=== PATIENT | female | born 1970 | race Caucasian/White ===

== ENCOUNTER 2019-03-24 09:29 | Outpatient (CLI) | payer OTHER, SELFPAY ==
--- NOTE | ~2019-03-24 | XR_ITS ---
EXAMINATION: XR knee LT 2V DATE: 03/24/2019 10:58 INDICATION: Left knee pain. TECHNIQUE: 2 views of left knee were obtained. COMPARISON: Left knee radiographs 05/28/2017 FINDINGS: Bone alignment is normal. No fracture. There is mild tricompartmental osteoarthritis. No kn ee joint effusion. IMPRESSION: 1. Mild left knee osteoarthritis. Reviewed, dictated and finalized at location A. LED YARN WORKER
--- NOTE | ~2019-03-24 | MR_ITS ---
EXAMINATION: MR lumbar spine wo con DATE: 03/24/2019 10:47 INDICATION: Low back pain. TECHNIQUE: Magnetic resonance imaging (MRI) of the lumbar spine was performed without intravenous con trast. Sequences included sagittal T2-weighted FSE, sagittal T2-weighted FS FSE, sagittal T1-weighted FSE, and axial T2-weighted FSE. COMPARISON: Lumbar spine radiographs 03/24/2019 FINDINGS: There is 6 degrees dextrocurvature of thoracolumbar spine. Vertebral body heights and inter vertebral disc heights are normal. The distal spinal cord signal intensity is normal. The conus medul oleksandr is at T12-L1. The following disc levels are specifically discussed: L1-L2: The disc does not extend beyond the endplate margin. There is moderate bilateral facet joint o steoarthritis. There is no neural foraminal stenosis. There is no central canal stenosis. L2-L3: The disc is mildly bulging. There is mild right and moderate left facet joint osteoarthritis. There is mild bilateral neural foraminal stenosis. There is mild central canal stenosis. L3-L4: The disc is mildly bulging. There is moderate right and severe left facet joint osteoarthritis . There is mild left neural foraminal stenosis. There is no central canal stenosis. L4-L5: The disc is mildly bulging. There is moderate right and severe left facet joint osteoarthritis . There is mild bilateral neural foraminal stenosis. There is no central canal stenosis. L5-S1: The disc does not extend beyond the endplate margin. There is severe bilateral facet joint ost eoarthritis. There is mild right and moderate left neural foraminal stenosis. There is no central can al stenosis. IMPRESSION: 1. Mild lumbar spondylosis. Reviewed, dictated and finalized at location A. INAL INTELLIGENCE SPECIALIST IMPRESSION: 1. Mild lumbar spondylosis.
--- NOTE | ~2019-03-24 | XR_ITS ---
EXAMINATION: XR knee RT 2V DATE: 03/24/2019 10:58 INDICATION: Right knee pain. TECHNIQUE: 2 views of right knee were obtained. COMPARISON: None. FINDINGS: Bone alignment is normal. No fracture. There is mild tricompartmental osteoarthritis. No kn ee joint effusion. IMPRESSION: 1. Mild right knee osteoarthritis. Reviewed, dictated and finalized at location A. HEAD PUMPER
--- NOTE | ~2019-03-24 | XR_ITS ---
XR lumbar spine 6V w bending 03/24/2019 10:58 Indication: Low back pain Procedure: 7 views lumbar spine Comparison: 05/28/2017 Findings: Mild wedge-shaped appearance to L1 which appears chronic. Mild disc narrowing at L4-5 and L 5-S1. No significant alteration of alignment with flexion/extension. There are cholecystectomy clips. Pedicles intact. There are facet hypertrophic changes at L4-5 and L5-S1. No acute fracture or trauma tic malalignment. No evidence for spondylolisthesis. Impression: 1: Mild-moderate lumbar spondylosis. Reviewed, dictated and finalized at location A. E FACILITATOR Impression: 1: Mild-moderate lumbar spondylosis.
== END 2019-03-24 09:30 | disposition home or self-care (01) ==
LOC: ANHIMG 09:39
PROVIDERS: PCP Family Medicine
DX: M47.896 Other spondylosis, lumbar region (principal); M17.0 Bilateral primary osteoarthritis of knee
CPT/HCPCS: 72114; 72148; 73560

== ENCOUNTER 2019-04-30 10:53 | Outpatient (CLI) | payer OTHER, SELFPAY ==
--- NOTE | ~2019-04-30 | US_ITS ---
EXAMINATION: US breast BI limited HISTORY: Painful bilateral subareolar breast lumps TECHNIQUE: Limited bilateral breast ultrasound is performed. FINDINGS: Right breast: There is a 1.7 x 0.9 cm oval, irregular, complex cystic and solid mass at the 3:00 loca tion in the right breast near the nipple corresponding to the area of clinical concern which demonstr ates posterior acoustic enhancement and peripheral vascularity. The areas predominantly solid with fl uid components measuring less than 2 mm in maximum dimension. Left breast: No discrete mass is identified to correspond with the area of palpable concern. There is diffuse increase in echogenicity of the tissue near the left nipple at the 10:00 location in the are a of palpable concern. Dilated subareolar ducts are noted. IMPRESSION: Bilateral findings in the breasts consistent with infection. No drainable fluid collection identified . Recommend trial of antibiotics and clinical follow-up with repeat ultrasound if necessary. BI-RADS Category 2: Benign finding(s). Reviewed, dictated and finalized at location A. IMPRESSION: Bilateral findings in the breasts consistent with infection. No drainable fluid collection identified. Recommend trial of antibiotics and clinical follow-up w ith repeat ultrasound if necessary. BI-RADS Category 2: Benign finding(s).
== END 2019-04-30 10:54 | disposition home or self-care (01) ==
PROVIDERS: PCP Family Medicine; Visit Provider Advanced Practice Midwife
DX: N61.1 Abscess of the breast and nipple (principal); N63.0 Unspecified lump in unspecified breast
CPT/HCPCS: 76642

== ENCOUNTER 2019-05-02 16:31 | Inpatient (IN) | payer MEDICARE, OTHER, SELFPAY ==
[2019-05-02] VITALS (24 sets, daily range): BP systolic 111–149; BP diastolic 65–93; PULSE 90–104; RESP 13–26; TEMP 36.2–37; O2SAT 94–99; BMI 45.2
--- NOTE | ~2019-05-02 | XR_ITS ---
EXAMINATION: XR chest 1V portable 05/03/2019 17:56 INDICATION: Shortness of breath. Possible panic attack. PROCEDURE: AP portable chest COMPARISON: No prior studies for comparison. FINDINGS: The lungs are clear. The cardiomediastinal silhouette is within normal limits. There are no pleural effusions. There is no pneumothorax suspected. IMPRESSION: 1: NO ACUTE CARDIOPULMONARY DISEASE. Reviewed, dictated and finalized at location A.
--- NOTE | ~2019-05-02 | US_ITS ---
EXAMINATION: US breast LT limited HISTORY: Left breast swelling, concern for abscess TECHNIQUE: Limited left breast ultrasound is performed. FINDINGS: There is a 4.0 x 0.5 cm complex fluid collection at the 8:30 location 4 cm from the nipple in the breast in the area of clinical concern. Again noted is diffuse increase in echogenicity of the surrounding breast tissue. IMPRESSION: Small fluid collection in the left breast with surrounding cellulitis, consistent with small abscess. BI-RADS Category 2: Benign finding(s). Reviewed, dictated and finalized at location A. IMPRESSION: Small fluid collection in the left breast with surrounding cellulitis, consiste nt with small abscess. BI-RADS Category 2: Benign finding(s).
--- NOTE | 2019-05-02 17:07 | PC.NURSE ---
BS 442.
[2019-05-02 17:10] LABS: Glucose Point of Care 442 (65-105)
[2019-05-02 17:28] LABS: Basophils Absolute Auto 0.1 K/mm3 (0.0-0.1); Basophils Percent Auto 0.5 % (0.2-1.2); Eosinophils Percent Auto 0.2 % (0-4.4); Hematocrit 41.9 % (37.0-47.0); Hemoglobin 14.2 g/dL (12.0-15.0); Immature Granulocyte Absolute 0.09 K/mm3 (0.00-0.031); Immature Granulocyte Percent A 0.6 % (0-0.5); Lymphocytes Percent Auto 15.8 % (18.3-44.2); Mean Corpuscular HGB Conc 33.9 g/dl (32-36); Mean Corpuscular Hemoglobin 30.7 pg (26-34); Mean Corpuscular Volume 90.5 fl (80-100); Mean Platelet Volume 10.9 fl (7.4-10.4); Monocytes Percent Auto 6.7 % (2.6-8.5); Neutrophils Absolute Auto 11.6 K/mm3 (1.3-6.7); Neutrophils Percent Auto 76.2 % (45.5-73.1); Platelet Count Result 298 k/mm3 (150-375); Red Blood Count 4.63 M/mm3 (4.2-5.4); Red Cell Distribution Width 13.6 % (11.5-14.5); White Blood Count 15.2 K/mm3 (4.5-10.0)
[2019-05-02] MEDS: SODIUM CHLORIDE 0.9% IV 1,000 ML 999 ML IV CONT ×4 (17:28→18:46)
[2019-05-02 17:33] LABS: Add Urine Microscopic? YES; Appearance Urine Clear (Clear); Bacteria Urine Trace /hpf; Bilirubin Urine Negative (Negative); Blood Urine Negative (Negative); Color Urine Straw (Yellow); Glucose Urine UA 3+ mg/dL (Negative); Ketones Urine Negative (Negative); Leukocyte Esterase Ur Negative LEU/UL (Negative); Mucus Urine Rare /lpf; Nitrate Urine Negative (Negative); Protein Urine Negative (Negative); RBC Urine 0-2 /hpf (0-2); Specific Grav Ur 1.035 (1.001-1.035); Squamous Epithelial Cell Urine Few /hpf (Few); Urobilinogen Urine Negative mg/dL (<2.0)
[2019-05-02 17:38] LABS: INR 1.1; Partial Thromboplastin Time 30.2 SECONDS (22.3-36.8); Prothrombin Time 13.7 Seconds (11.1-14.7)
[2019-05-02 17:39] LABS: Lactic Acid Reflex 3.1 mmol/L (0.7-2.1)
[2019-05-02 18:15] LABS: Alanine Aminotransferase 57 U/L (4-35); Albumin Level 4.2 g/dL (3.5-5.1); Alkaline Phosphatase 148 U/L (38-126); Aspartate Amino Transferase 62 U/L (14-36); Bilirubin,Total 0.7 mg/dL (0.2-1.3); Blood Urea Nitrogen 7 mg/dL (7-17); CRP 5.9 mg/dL (<1.0); Calcium 9.1 mg/dL (8.4-10.2); Carbon Dioxide 22 mmol/L (22-30); Chloride 94 mmol/L (98-107); Estimated CRCL calculation 172 ml/min; Estimated Glomerular Filt Rate > 60; Glucose 442 mg/dL (65-105); Potassium 4.5 mmol/L (3.4-5.0); Sodium 129 mmol/L (137-145)
--- NOTE | 2019-05-02 18:30 | ED.GENADULT ---
HPI - General Adult General Chief complaint: Wound/Laceration Stated complaint: Breast Abscess Time Seen by Provider: 05/02/19 16:36 Source: patient Mode of arrival: ambulatory Limitations: no limitations History of Present Illness HPI narrative: Patient is a 48-year-old female who presents with 6 days duration of wound to the left breast patient was seen by her varnish inspector and had ultrasound which did not reveal a fluid collection per patient and was started on antibiotics which she has been taking since Tuesday with no improvement. Patient notes that her blood sugars have been going up as well as the wound has increased in size. Patient denies fever chills nausea vomiting patient notes moderate aching pain worse with palpation. Related Data Home Medications Medication Instructions Recorded Confirmed Requip 4 mg PO PRN 01/07/19 01/07/19 buspirone 15 mg PO TID 01/07/19 01/07/19 desipramine 50 mg PO HS 01/07/19 01/07/19 escitalopram oxalate [Lexapro] 5 mg PO DAILY 01/07/19 01/07/19 glipizide 10 mg PO TID 01/07/19 01/07/19 metformin 1,000 mg PO BID 01/07/19 01/07/19 oxycodone-acetaminophen [Percocet] 1 tablet PO Q6H PRN 01/07/19 01/07/19 pravastatin 40 mg PO DAILY 01/07/19 01/07/19 sitagliptin [Januvia] 100 mg PO DAILY 01/07/19 01/07/19 Ambien 5 HS 05/02/19 cyclobenzaprine 10 mg PO BID 05/02/19 sulfamethoxazole-trimethoprim 1 tablet PO Q12H 05/02/19 [Bactrim DS] Allergies Allergy/AdvReac Type Severity Reaction Status Date / Time morphine Allergy Unknown Other Verified 05/02/19 16:43 Sulfa (Sulfonamide Allergy Unknown Hives Verified 05/02/19 16:43 Antibiotics) vancomycin Allergy Unknown Hives Verified 05/02/19 16:43 Review of Systems Review of Systems: All systems reviewed & are unremarkable except as noted in HPI and below PMFSH Past Medical History Medical History Anemia Anxiety Asthma Depression Diabetes Fatty tumor lt forearm Ganglion cyst lt foot GERD (gastroesophageal reflux disease) Hyperlipidemia Polycystic ovaries Restless leg syndrome Spinal stenosis Surgical History Surgical History H/O arthroscopy lt knee H/O laparoscopy H/O tubal ligation H/O: hysterectomy Hx of appendectomy Hx of cholecystectomy Hx of tonsillectomy Social History Social History Smoking packs per day: 1.5 Smoking cigarettes per day: 30.0 Smoking status: Current every day smoker Second hand tobacco smoke exposure: Yes Gender identity (if verbalized by the patient): Female Exam Narrative: Exam Narrative: GENERAL: Well-appearing, obese, and in no acute distress. HEAD: Normocephalic, atraumatic. EYES: PERRLA and EOMI. ENT: Nares clear, no rhinorrhea or epistaxis. Mucous membranes moist. CHEST: Clear to auscultation. No respiratory distress. No wheezes rales or rhonchi HEART: Regular rate and rhythm. No murmur heard. EXTREMITIES: Normal range of motion. No edema. SKIN: Warm, dry, no rash. 7 cm red tender swollen firm area to the left breast along the medial aspect NEURO: No focal deficits. Alert and oriented x3. PSYCH: Normal mood and affect. Course Consultations Consultation #1: Discussed case with infectious disease who recommended that Teflaro would be an acceptable option for antibiotics Discussed case with on-call surgeon who will consult on patient would like repeat ultrasound in the morning Discussed case with hospitalist service who is agreed to accept the patient Vital Signs Vital signs: Vital Signs Temperature 97.1 F L 05/02/19 16:37 Pulse Rate 100 05/02/19 16:37 Respiratory Rate 17 05/02/19 16:37 Blood Pressure 149/89 H 05/02/19 16:37 Pulse Oximetry 99 05/02/19 16:37 Temperature 97.1 F L 05/02/19 16:37 Pulse Rate 104 H 05/02/19 17:32 Respiratory Rate 18 05/02/19 17:32 Blood Pressu
[2019-05-02 18:45] LABS: Magnesium 1.6 mg/dL (1.6-2.3); Phosphorus 4.8 mg/dL (2.5-4.5)
[2019-05-02] MEDS: IBUPROFEN IV 800 MG/200 ML 800 MG/200 ML BAG 400 MG IVPB (18:46)
[2019-05-02 20:25] LABS: Reflex Lactic Acid Yes or No Add Lactic
[2019-05-02 20:31] LABS: Glucose Point of Care 268 (65-105)
[2019-05-02 21:03] LABS: Lactic Acid 1.2 mmol/L (0.7-2.1)
[2019-05-02] MEDS: CYCLOBENZAPRINE HCL 10 MG TABLET PO (22:34)
[2019-05-02] MEDS: ZOLPIDEM TARTRATE 5 MG TABLET PO (22:35)
[2019-05-02] MEDS: LACTATED RINGERS 1,000 ML 125 ML IV CONT (23:13)
[2019-05-02] MEDS: FAMOTIDINE 20 MG/2 ML VIAL IV PUSH (23:14)
[2019-05-02] MEDS: DESIPRAMINE HCL 25 MG TABLET 50 MG PO (23:15)
[2019-05-02] MEDS: busPIRone HCL 10 MG TABLET 30 MG PO (23:16)
[2019-05-02] MEDS: PRAVASTATIN SODIUM 20 MG TABLET 40 MG PO (23:17)
[2019-05-02] MEDS: FAMOTIDINE 20 MG TABLET PO (23:17)
[2019-05-02] MEDS: INSULIN GLARGINE (*BKC) 100 UNITS/ML 17 UNITS SUB-Q (23:25)
--- NOTE | 2019-05-02 23:52 | ADMGEN ---
This patient, Kristi Nicole, was admitted to [facility] Surg Room [id number]. Patient/family oriented to hospital policies and general routines including ID bracelet, bed and alarms, visiting hours, pain management, procedures, bathroom and other care routines, personal items, smoking policy, room service/diet, and visiting hours. Valuables list has been completed. Information on how to activate the Rapid Response Team has been discussed. Patient/Family are encouraged to report perceived risks to care and to ask questions if they do not understand what they are told or what they should do.
--- NOTE | 2019-05-03 00:57 | PM.IMHP ---
H&P: HPI History of Present Illness Chief complaint: Breast infection Narrative: Date and time of patient contact: 05/03/2019 at at 5:45 a.m. Kristi Nicole is a 48 year old female with a past medical history of morbid obesity, uncontrolled diabetes, chronic pain who presented to the ER with a breast infection. The patient has had 6 days of erythema to her left breast with underlying swelling and pain that is gotten worse despite her Bactrim as directed. She has also developed a lump in the right breast at the level of the nipple that is also tender to palpation but not quite as tender as the left breast. She denies any fevers or chills she had been evaluated by her manager actuarial with an ultrasound on the which did not demonstrate any abscess. The patient takes Percocet at home pretty much every 6 hours scheduled. She is takes this for chronic back pain. Her home Percocet is not helping with her pain. She reports that her glucoses have been higher than usual over the last several weeks due to receiving steroid injections in her knees and back on the and 19 of April. However even board for steroid injections the patient's average glucoses were around 200. Her last hemoglobin A1c in February was 11.9. She denies any history of recurrent infections. She has chronic opioid induced constipation. She states that her insurance will not pay for the medications to treat her opioid induced constipation. She has chronic dry mouth. She is edentulous and does not wear dentures. Review of Systems Review of Systems: Narrative: Except as documented in the HPI, all other systems were reviewed and are negative. [facility] Past Medical History Medical History (Updated 05/03/19 @ 06:27 by Joycelyn Gordon DO) Anemia Prior to hysterectomy Anxiety Asthma Depression Fatty tumor lt forearm Ganglion cyst lt foot GERD (gastroesophageal reflux disease) Hyperlipidemia Polycystic ovaries Restless leg syndrome Spinal stenosis Type 2 diabetes mellitus Surgical History Surgical History (Updated 05/03/19 @ 06:27 by Joycelyn Gordon DO) H/O arthroscopy lt knee H/O laparoscopy H/O tubal ligation H/O: hysterectomy Due to dysfunctional uterine bleeding Hx of appendectomy Hx of cholecystectomy Hx of tonsillectomy Family History Family History (Updated 05/02/19 @ 22:41 by Celia Chand RN) Mother Hypertension Social History Social History (Updated 05/03/19 @ 06:31 by Joycelyn Gordon, DO) Social History: Patient is an only child. She does not know her father's history. Her son has a drug problem. Her daughter is obese. Primary care physician: Dr. Gil Berg Smoking packs per day: 1 Smoking cigarettes per day: 20.0 Years smoked: 30 Smoking pack-years: 30.00 Smoking status: Current every day smoker Tobacco type: cigarettes Second hand tobacco smoke exposure: Yes Alcohol intake: former Additional occupation/education comments: She is trying to get disability. Gender identity (if verbalized by the patient): Female Spiritual care concerns: No Agree to blood products: No Meds Home Medications and Allergies Home Medications Medication Instructions Recorded Confirmed Type Requip 2 mg PO BID 01/07/19 05/02/19 History buspirone 30 mg PO BID 01/07/19 05/02/19 History desipramine 50 mg PO HS 01/07/19 05/02/19 History escitalopram oxalate [Lexapro] 10 mg PO DAILY 01/07/19 05/02/19 History glipizide 10 mg PO TID 01/07/19 05/02/19 History metformin 1,000 mg PO BID 01/07/19 05/02/19 History oxycodone-acetaminophen [Percocet] 1 tablet PO Q6H PRN 01/07/19 05/02/19 History pravastatin 40 mg PO HS 01/07/19 05/02/19 History sitagliptin [Januvia] 100 mg PO HS 01/07/19 05/02/19 History Ambien 5 mg/day PO HS 05/02/19 05/02/19 History cyclobenzaprine 10 mg PO BID 05/02/19 05/02/19 History famotidine [Pepcid] 20 mg PO HS 05/02/19 05/02/19 History sulfamethoxazole-trimethoprim 1 table
[2019-05-03 06:00] VITALS: BP 101/50; PULSE 79; RESP 18; TEMP 36.6; O2SAT 98
[2019-05-03] MEDS: LACTATED RINGERS 1,000 ML 125 ML IV CONT (06:32)
[2019-05-03 06:33] LABS: Basophils Percent Auto 0.4 % (0.2-1.2); Eosinophils Absolute Auto 0.1 K/mm3 (0-0.3); Eosinophils Percent Auto 0.9 % (0-4.4); Hematocrit 38.3 % (37.0-47.0); Hemoglobin 12.6 g/dL (12.0-15.0); Immature Granulocyte Absolute 0.04 K/mm3 (0.00-0.031); Immature Granulocyte Percent A 0.5 % (0-0.5); Lymphocytes Absolute Auto 1.75 K/mm3 (0.9-3.2); Lymphocytes Percent Auto 23.6 % (18.3-44.2); Mean Corpuscular HGB Conc 32.9 g/dl (32-36); Mean Corpuscular Hemoglobin 30.3 pg (26-34); Mean Corpuscular Volume 92.1 fl (80-100); Mean Platelet Volume 10.3 fl (7.4-10.4); Monocytes Absolute Auto 0.6 K/mm3 (0.1-0.6); Neutrophils Absolute Auto 4.9 K/mm3 (1.3-6.7); Neutrophils Percent Auto 66.6 % (45.5-73.1); Platelet Count Result 223 k/mm3 (150-375); Red Blood Count 4.16 M/mm3 (4.2-5.4); Red Cell Distribution Width 13.6 % (11.5-14.5); White Blood Count 7.4 K/mm3 (4.5-10.0)
[2019-05-03 06:47] LABS: Blood Urea Nitrogen 3 mg/dL (7-17); Calcium 8.4 mg/dL (8.4-10.2); Carbon Dioxide 28 mmol/L (22-30); Chloride 101 mmol/L (98-107); Estimated CRCL calculation 224 ml/min; Estimated Glomerular Filt Rate > 60; Glucose 244 mg/dL (65-105); Potassium 4.2 mmol/L (3.4-5.0); Sodium 132 mmol/L (137-145)
[2019-05-03 07:19] LABS: Hemoglobin A1C 10.3 % (<5.7)
[2019-05-03] MEDS: glipiZIDE 5 MG TABLET 10 MG PO ×3 (08:27→18:15)
[2019-05-03] MEDS: busPIRone HCL 10 MG TABLET 30 MG PO ×2 (08:27→18:15)
[2019-05-03] MEDS: CYCLOBENZAPRINE HCL 10 MG TABLET PO ×2 (08:28→18:16)
[2019-05-03] MEDS: metFORMIN HCL 500 MG TABLET 1000 MG PO ×2 (08:28→18:15)
[2019-05-03] MEDS: ESCITALOPRAM OXALATE 10 MG TABLET PO (08:28)
[2019-05-03] MEDS: FAMOTIDINE 20 MG/2 ML VIAL IV PUSH (08:29)
[2019-05-03 08:35] LABS: Glucose Point of Care 256 (65-105)
[2019-05-03] MEDS: INSULIN ASPART (*BKC) 100 UNITS/ML SUB-Q ×3 (10:35→17:56)
--- NOTE | 2019-05-03 14:19 | PM.CNGS ---
Assessment and Plan Assessment and plan (1) Abscess of left breast: Code(s): N61.1 - Abscess of the breast and nipple Status: Acute Assessment and Plan: Repeat ultrasound reviewed. The patient has evidence of a left breast abscess with cellulitis. The abscess is too small for aspiration or drainage at this time. Continue the IV antibiotics with coverage for possible MRSA. It is odd that she has recurrent skin infections on bilateral breasts. The right breast does not have any signs of infection today and has resolved with oral antibiotic treatment. Hopefully, the left breast abscess and cellulitis will continue to improve with IV antibiotic therapy. I discussed the case with Dr. Baptiste who will be evaluating the patient independently later today. Thank you for allowing me to evaluate the patient in consultation and we will continue to follow along with you. (2) Cellulitis of breast: Code(s): N61.0 - Mastitis without abscess Status: Acute Assessment and Plan: See plan above. (3) Type 2 diabetes mellitus: Qualifiers: Diabetes mellitus custodial insulin use: without custodial use Code(s): E11.9 - Type 2 diabetes mellitus without complications Status: Acute Assessment and Plan: Uncontrolled diabetes with a Hgb A1C 10.3. Glucose was 442 on admission and still had a blood sugar in the 300's today. Discussed the importance of glycemic control with healing and infectious processes. She should follow a strict diabetic diet on discharge as well. Management per the Hospitalist, who has added Lantus and sliding scale insulin. (4) Sepsis: Qualifiers: Sepsis type: sepsis due to unspecified organism Sepsis acute organ dysfunction status: without acute organ dysfunction Qualified Code(s): A41.9 - Sepsis, unspecified organism Code(s): A41.9 - Sepsis, unspecified organism Status: Acute Assessment and Plan: Sepsis criteria met on admission. Blood cultures drawn once on Bactrim and pending. Tachycardia and lactic acidosis has resolved. WBC normal today. (5) Tobacco abuse: Code(s): Z72.0 - Tobacco use Status: Acute Assessment and Plan: Encouraged cessation and discussed the increased risk of recurrence of breast abscesses with tobacco abuse. (6) Obesity, Class III, BMI 40-49.9 (morbid obesity): Code(s): E66.01 - Morbid (severe) obesity due to excess calories Status: Acute Additional Plan The patient's case and plan of care was discussed with Dr. Baptiste. History of Present Illness Consult details Consult date: 05/03/19 Reason for consult: other (Left breast abscess) Requesting physician: Maicol Peña PA-C Narrative: This is an obese 48-year-old female who is an uncontrolled diabetic with chronic tobacco abuse. She reports noting a red bump on both her left and right breast near the nipple about 1.5 weeks ago. She states that she has small pimple-like bumps that form frequently on her breasts and she will pop them and they resolve on their own. She reports that these two red areas were not improving, and instead were becoming more painful and swollen. She was evaluated by her Steel Post Installer on 04/30/19 who started her on Bactrim DS and sent her for a stat ultrasound, which showed bilateral findings in the breasts consistent with infection and no drainable fluid collection. The right breast showed a 1.7 x 0.9 cm oval, irregular, complex cystic and solid mass at 3:00 location in the right breast near the nipple. BI-RADS 2 category, benign findings. The patient reports taking the Bactrim as prescribed. The area of concern on the right breast has improved and she is no longer having pain or redness to this area. She states there is still a small bump near the nipple but it is now non-tender and is no longer swollen. She states that the left breast has worsened and has grown in size and the pain has worsened in the past few days. Denies fe
[2019-05-03 14:41] LABS: Glucose Point of Care 310 (65-105)
[2019-05-03 14:51] VITALS: BP 124/70; PULSE 88; RESP 16; TEMP 35.8; O2SAT 95
--- NOTE | 2019-05-03 15:01 | PM.IMPN ---
Progress Note: A&P Assessment and Plan (1) Abscess of left breast: Code(s): N61.1 - Abscess of the breast and nipple Status: Acute Assessment and Plan: Patient saw her COVER INSPECTOR 04/30/19 and was started on oral bactrim at that time. Redness and pain worsened so she presented to ER. She notes she has been getting abscesses on her breasts for over 20 years. They will start as pimple-like bumps that she will pop and they go away. She has not required surgery in the past. Continue IV imipenem and doxycycline. Blood cultures pending. General surgery consulted - appreciate input; no plans for surgical intervention at this point. (2) Cellulitis of breast: Code(s): N61.0 - Mastitis without abscess Status: Acute Assessment and Plan: See above. (3) Sepsis: Qualifiers: Sepsis type: sepsis due to unspecified organism Sepsis acute organ dysfunction status: without acute organ dysfunction Qualified Code(s): A41.9 - Sepsis, unspecified organism Code(s): A41.9 - Sepsis, unspecified organism Status: Acute Assessment and Plan: Evident by tachycardia, leukocytosis, lactic acidosis - resolved. Suspected source is above. Vitals are stable, afebrile. Blood cultures pending. (4) Type 2 diabetes mellitus: Qualifiers: Diabetes mellitus truck terminal manager insulin use: with nursing home use Diabetes mellitus complication status: with skin complications Diabetes mellitus complication detail: with other skin complication Qualified Code(s): E11.628 - Type 2 diabetes mellitus with other skin complications; Z79.4 - long-term (current) use of insulin Code(s): E11.9 - Type 2 diabetes mellitus without complications Status: Acute Assessment and Plan: Uncontrolled type 2 diabetes. Her regimen includes glipizide and metformin; she tells me she also takes Basaglar which is not on her med rec - discussed with RN who will call pharmacy to verify. She notes that her blood sugars have been high after orthopedic steroid injections a few weeks ago, but upon further questioning she admits that she does not check her blood sugars regularly and that she often misses doses of her basaglar. A1c 10.3. Detailed discussion was held with patient regarding the importance of tight glycemic control to promote wound healing, importance of checking blood sugars regularly and taking her medications as prescribed. Continue Lantus, sliding scale coverage, metformin, and Januvia. Monitor with Accu-Cheks and adjust treatment as needed. (5) Tobacco abuse: Code(s): Z72.0 - Tobacco use Status: Acute Assessment and Plan: Counseled on cessation. Ongoing tobacco use will also prolong wound healing Subjective Date/time seen: 05/03/19 1445 Interval history: Ms. Nicole is a 48yo F admitted with cellulitis of the left breast. She reports pain to her left breast and feels like the redness is slightly worse than yesterday. She denies chest pain or shortness of breath. She has tolerated oral intake without nausea or vomiting. Review of Systems Review of Systems: Narrative: Twelve systems were reviewed with pertinent positives and negatives as per HPI. Exam Narrative: Exam Narrative: General: Female resting sitting up in bed in no acute distress, visiting with family at bedside. Tearful. Skin: 10cm area of erythema and induration to left lower inner breast. Another 2cm small firm mass to right breast near the nipple. Nipples are normal in appearance without drainage. HEENT: Normocephalic, EOMI, oral mucosa moist. Cardiovascular: Rate and rhythm are regular. Respiratory: Lungs clear to auscultation all kaiser. Non-labored breathing. Abdomen: Soft, non-tender, non-distended, bowel sounds present. Extremities: Peripheral pulses intact. No edema.
--- NOTE | 2019-05-03 16:22 | PM.PNGS ---
Progress Note: A&P Assessment and Plan (1) Mastitis of left breast unrelated to or : Code(s): N61.0 - Mastitis without abscess Status: Acute Assessment and Plan: The complex but tiny strand of fluid in the left breast is not c/w with an abscess that can be drained or effectively aspirated. Cont antibiotics and follow. I suspect this will resolve with better diabetic control and antibiotics. Will cont to follow and if needed, repeat ultrasound in a few days. (2) Mastitis of right breast unrelated to of : Code(s): N61.0 - Mastitis without abscess Status: Acute Assessment and Plan: resolving. Advised patient to stop squeezing these pustules as they will resolve more safely if left alone. Better diabetic control and hygiene will help as well. (3) Tobacco abuse: Code(s): Z72.0 - Tobacco use Status: Chronic Assessment and Plan: another obstacle to healing. Advised to stop. (4) Diabetes mellitus out of control: Code(s): E11.65 - Type 2 diabetes mellitus with hyperglycemia Status: Acute (5) Obesity, Class III, BMI 40-49.9 (morbid obesity): Code(s): E66.01 - Morbid (severe) obesity due to excess calories Status: Chronic (6) Opioid dependence: Code(s): F11.20 - Opioid dependence, uncomplicated Status: Chronic (7) Neuropathic pain: Code(s): M79.2 - Neuralgia and neuritis, unspecified Status: Chronic Subjective Subjective Date/Time Seen: 05/03/19 16:22 Patient is a 48-year-old woman who has a number of significant chronic problems. She is a poorly controlled diabetic with a hemoglobin of 11.5 in February. She has morbid obesity with a BMI of 45.2. She also takes 10 mg of Percocet every 6 hours for chronic in pain in several different areas of her body. She has recurrent small pustules or cyst that form on her breast. She has for a long time been squeezing these, popping them and reports that they then heal. I asked if she had ever tried to let them heal without squeezing and she says she never has done that. Currently she developed bilateral breast pain earlier this month. On the right side this was in the medial aspect of the nipple area. On the left side, this was in the upper inner quadrant. The patient was started on some Bactrim on 04/30/2019. The right side improved but the left side has gotten more painful, larger, and more reddened. The patient came to the emergency room yesterday. She had out of control high blood sugars and evidence of left breast mastitis. She has been admitted and started on Primaxin and doxycycline. We were asked to see her regarding her left breast mastitis and the possibility of a left breast abscess. She had a bilateral breast ultrasound on April 29, 3 days ago. This showed mastitis but no evidence of abscess. Left breast ultrasound was repeated today and there was some fluid noted in the left breast. This is a string like collection that is 4 cm x 0.5 cm and complex. There was also evidence of mastitis. Review of Systems Review of Systems: All systems reviewed & are unremarkable except as noted in HPI and below (HPI) Constitutional: Constitutional: Denies chills and Denies fever(s) Exam Chest: Breast/axilla inspection: abnormal inspection of the breast (healing periareolar mastitis right breast, no abscess;) left upper inner erythema, normal areola and other (swelling mass, no fluctuance left breast; mild tenderness) Objective Data Vital Signs Vital Signs: Vital Signs - 24 hr 05/02/19 16:37 05/02/19 16:59 05/02/19 17:00 Temperature 36.2 C L Pulse Rate 100 102 H 102 H Respiratory Rate 17 20 21 H Blood Pressure 149/89 H Pulse Oximetry 99 97 96 05/02/19 17:15 05/02/19 17:30 05/02/19 17:32 Temperature Pulse Rate 98 102 H 104 H Respiratory Rate 22 H 20 18 Blood Pressure 111/65 Pulse Oximetry 97 97 95 05/02/19 17:
[2019-05-03 17:28] VITALS: BP 175/77; PULSE 122; RESP 30; O2SAT 100
[2019-05-03 18:04] LABS: Glucose Point of Care 291 (65-105)
--- NOTE | 2019-05-03 18:40 | PC.NURSE ---
Patient was found with her significant other off the unit. Instructed the patient that she is not permitted to leave the floor. She stated that she will do what she wants. Notified . No new orders were obtained.
[2019-05-03] MEDS: DESIPRAMINE HCL 25 MG TABLET 50 MG PO (20:17)
[2019-05-03] MEDS: FAMOTIDINE 20 MG TABLET PO (20:17)
[2019-05-03] MEDS: PRAVASTATIN SODIUM 20 MG TABLET 40 MG PO (20:17)
[2019-05-03] MEDS: LORAZEPAM INJ 2 MG/ML VIAL 0.5 MG IV PUSH (20:18)
[2019-05-03] MEDS: INSULIN GLARGINE (*BKC) 100 UNITS/ML 20 UNITS SUB-Q (20:21)
[2019-05-03 22:00] VITALS: BP 102/57; PULSE 85; RESP 16; TEMP 36.8; O2SAT 97
[2019-05-03 22:40] LABS: Glucose Point of Care 313 (65-105)
[2019-05-04] MEDS: ONDANSETRON INJ 4 MG/2 ML VIAL IV PUSH (03:49)
[2019-05-04 06:00] VITALS: BP 114/63; PULSE 88; RESP 16; TEMP 36.5; O2SAT 95
[2019-05-04 06:13] LABS: Calcium 8.6 mg/dL (8.4-10.2); Carbon Dioxide 31 mmol/L (22-30); Chloride 97 mmol/L (98-107); Estimated CRCL calculation 176 ml/min; Estimated Glomerular Filt Rate > 60; Glucose 263 mg/dL (65-105); Magnesium 1.6 mg/dL (1.6-2.3); Phosphorus 4.6 mg/dL (2.5-4.5); Potassium 4.7 mmol/L (3.4-5.0); Sodium 134 mmol/L (137-145)
[2019-05-04 06:17] LABS: Blood Urea Nitrogen < 2 mg/dL (7-17)
[2019-05-04 08:14] LABS: Glucose Point of Care 275 (65-105)
[2019-05-04] MEDS: INSULIN ASPART (*BKC) 100 UNITS/ML SUB-Q ×3 (09:17→17:51)
[2019-05-04] MEDS: MAGNESIUM SULF 2 GM/WATER 50ML 2 GM/50 ML BAG IVPB (09:17)
[2019-05-04] MEDS: metFORMIN HCL 500 MG TABLET 1000 MG PO ×2 (09:22→17:47)
[2019-05-04] MEDS: CYCLOBENZAPRINE HCL 10 MG TABLET PO ×2 (09:22→17:49)
[2019-05-04] MEDS: busPIRone HCL 10 MG TABLET 30 MG PO ×2 (09:22→17:47)
[2019-05-04] MEDS: ESCITALOPRAM OXALATE 10 MG TABLET PO (09:22)
[2019-05-04] MEDS: glipiZIDE 5 MG TABLET 10 MG PO ×3 (09:23→17:49)
--- NOTE | 2019-05-04 10:45 | PM.PNGS ---
Progress Note: A&P Assessment and Plan (1) Mastitis of left breast unrelated to or : Code(s): N61.0 - Mastitis without abscess Status: Acute Assessment and Plan: Improving. Would continue IV antibiotics. Doubt patient will need incision and drainage. (2) Mastitis of right breast unrelated to of : Code(s): N61.0 - Mastitis without abscess Status: Acute Assessment and Plan: Continues to heal Subjective Subjective Date/Time Seen: 05/04/19 10:45 Patient wishes to go home. She is just finishing off a muffin. Pain seems less in the left breast. Review of Systems Review of Systems: All systems reviewed & are unremarkable except as noted in HPI and below (HPI) Constitutional: Constitutional: Denies chills and Denies fever(s) Exam Chest: Breast/axilla inspection: abnormal inspection of the breast (Left breast less erythematous, erythema is fading) Breast/axilla palpation: abnormal palpation of the breast (Left breast indurated but no fluctuance, less tender) Objective Data Vital Signs Vital Signs: Vital Signs - 24 hr 05/03/19 14:51 05/03/19 17:28 05/03/19 22:00 Temperature 35.8 C L 36.8 C Pulse Rate 88 122 H 85 Respiratory Rate 16 30 H 16 Blood Pressure 124/70 175/77 H 102/57 L Pulse Oximetry 95 100 97 05/04/19 06:00 Temperature 36.5 C Pulse Rate 88 Respiratory Rate 16 Blood Pressure 114/63 Pulse Oximetry 95 Intake/Output Intake/Output: Intake & Output 05/01/19 05/02/19 05/03/19 05/04/19 23:59 23:59 23:59 23:59 Intake Total 3400 4495 1530 Output Total 3800 3300 Balance 3400 695 -1770 Meds/Results Medications: Active Medications Generic Name Dose Route Start Last Admin Trade Name Freq PRN Reason Stop Dose Admin Buspirone HCl 30 mg 05/02/19 22:00 05/04/19 09:22 Buspar PO 30 mg BID [place] Administration Cyclobenzaprine HCl 10 mg 05/02/19 22:00 05/04/19 09:22 Flexeril PO 10 mg BID [place] Administration Desipramine HCl 50 mg 05/02/19 22:00 05/03/19 20:17 Desipramine Hcl PO 50 mg HS [place] Administration Diphenhydramine HCl 25 mg 05/03/19 17:07 Benadryl Cap PO Q6H PRN Itching Escitalopram Oxalate 10 mg 05/03/19 09:00 05/04/19 09:22 Lexapro PO 10 mg DAILY [place] Administration Famotidine 20 mg 05/02/19 22:00 05/03/19 20:17 Pepcid PO 20 mg HS [place] Administration Glipizide 10 mg 05/03/19 09:00 05/04/19 09:23 Glucotrol PO 10 mg TID [place] Administration Doxycycline Hyclate 100 mg/ 100 mls @ 100 mls/hr 05/03/19 09:00 05/04/19 10:28 Dextrose IVPB 100 mls/hr Q12HR [facility] Administration Imipenem/Cilastatin Sodium 500 mg in 100 mls @ 300 mls/hr 05/03/19 12:00 05/04/19 06:20 Primaxin 500 Mg/D5w 100 Ml IVPB Infused Q6H [facility] Infusion Insulin Aspart 4 - 8 units 05/03/19 08:00 05/04/19 09:17 Novolog SUB-Q 5 units TIDWM [facility] Administration Protocol Insulin Glargine 20 units 05/03/19 21:00 05/03/19 20:21 Lantus SUB-Q 20 units HS [facility] Administration Ketorolac Tromethamine 30 mg 05/02/19 22:11 Toradol Inj IV PUSH Q6H PRN Pain Rated 4-6 Lorazepam 0.5 mg 05/03/19 17:29 05/03/19 20:18 Ativan Inj IV PUSH 0.5 mg Q6H PRN Administration Anxiety Metformin HCl 1,000 mg 05/03/19 09:00 05/04/19 09:22 Glucophage PO 1,000 mg BID [facility] Administration Ondansetron HCl 4 mg 05/02/19 18:41 05/04/19 03:49 Zofran Inj IV PUSH 4 mg Q4H PRN Administration Nausea Oxycodone/Acetaminophen 2 tablet 05/03/19 14:55 05/04/19 06:01 Percocet 5-325 Mg PO 2 tablet Q4H PRN Administration Pain Rated 7-10 Pravastatin Sodium 40 mg 05/02/19 22:05 05/03/19 20:17 Pravastatin Sodium PO 40 mg HS [place] Administration Ropinirole HCl 2 mg 05/02/19 22:25 05/04/19 09:25 Requip PO Not Given BID [place] Sitagliptin Phosphate 100 mg 05/02/19 22:05 05/02/
[2019-05-04 11:34] LABS: Glucose Point of Care 388 (65-105)
--- NOTE | 2019-05-04 12:24 | PM.IMPN ---
Progress Note: A&P Assessment and Plan (1) Abscess of left breast: Code(s): N61.1 - Abscess of the breast and nipple Status: Acute Assessment and Plan: No notable improvement today. Patient saw her EDUCATIONAL INTERPRETER 04/30/19 and was started on oral bactrim at that time. Redness and pain worsened so she presented to ER. She notes she has been getting abscesses on her breasts for over 20 years. They will start as pimple-like bumps that she will pop and they go away. She has not required surgery in the past. Continue IV imipenem and doxycycline. Blood cultures pending with no growth to date. General surgery consulted - appreciate input. (2) Cellulitis of breast: Code(s): N61.0 - Mastitis without abscess Status: Acute Assessment and Plan: See above. (3) Sepsis: Qualifiers: Sepsis acute organ dysfunction status: without acute organ dysfunction Sepsis type: sepsis due to unspecified organism Qualified Code(s): A41.9 - Sepsis, unspecified organism Code(s): A41.9 - Sepsis, unspecified organism Status: Acute Assessment and Plan: Evident by tachycardia, leukocytosis, lactic acidosis - resolved. Suspected source is above. Vitals are stable, afebrile. Blood cultures pending with no growth to date. (4) Type 2 diabetes mellitus: Qualifiers: Diabetes mellitus complication detail: with other skin complication Diabetes mellitus complication status: with skin complications Diabetes mellitus chcf insulin use: with long term acute care registered nurse use Qualified Code(s): E11.628 - Type 2 diabetes mellitus with other skin complications; Z79.4 - [facility] (current) use of insulin Code(s): E11.9 - Type 2 diabetes mellitus without complications Status: Acute Assessment and Plan: Uncontrolled type 2 diabetes. Her regimen includes glipizide and metformin; basaglar 70 U qAM and 65U qHS confirmed with pharmacy. She notes that her blood sugars have been high after orthopedic steroid injections a few weeks ago, but upon further questioning she admits that she does not check her blood sugars regularly and that she often misses doses of her basaglar. She does not follow a diabetic diet, drinks regular soda and eats sweets/cakes without checking blood sugar or dosing her insulin. A1c 10.3. Detailed discussion was held with patient regarding the importance of tight glycemic control to promote wound healing, importance of checking blood sugars regularly and taking her medications as prescribed. Added AM lantus more similar to her home regimen, sliding scale coverage, metformin, and Januvia, glipizide. Monitor with Accu-Cheks and adjust treatment as needed. (5) Tobacco abuse: Code(s): Z72.0 - Tobacco use Status: Chronic Assessment and Plan: Counseled on cessation. She has no interest in quitting. Declines nicotine patch. Ongoing tobacco use will also prolong wound healing. (6) Anxiety: Code(s): F41.9 - Anxiety disorder, unspecified Status: Chronic Assessment and Plan: She becomes very anxious and hyperventilates when discussing any type of counseling including blood sugars and smoking. Continue IV ativan PRN in addition to her home medications. 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 Subjective Date/time seen: 05/04/19 1215 Interval history: Ms. Nicole is a 48yo F admitted with cellulitis of the left breast. She wants to go home, but
[2019-05-04] MEDS: LORAZEPAM INJ 2 MG/ML VIAL 0.5 MG IV PUSH ×2 (12:31→18:26)
[2019-05-04 14:00] VITALS: BP 95/58; PULSE 85; RESP 16; TEMP 36.4; O2SAT 100
[2019-05-04 16:43] LABS: Glucose Point of Care 201 (65-105)
[2019-05-04] MEDS: INSULIN ASPART (*BKC) 100 UNITS/ML 6 UNITS SUB-Q (17:50)
[2019-05-04] MEDS: KETOROLAC 30 MG/ML VIAL (*BKC) IV PUSH (17:52)
[2019-05-04] MEDS: PRAVASTATIN SODIUM 20 MG TABLET 40 MG PO (20:19)
[2019-05-04] MEDS: DESIPRAMINE HCL 25 MG TABLET 50 MG PO (20:19)
[2019-05-04] MEDS: FAMOTIDINE 20 MG TABLET PO (20:19)
[2019-05-04] MEDS: ZOLPIDEM TARTRATE 5 MG TABLET PO (20:20)
[2019-05-04] MEDS: INSULIN GLARGINE (*BKC) 100 UNITS/ML 40 UNITS SUB-Q (20:27)
[2019-05-04 22:00] VITALS: BP 99/65; PULSE 79; RESP 18; TEMP 36.8; O2SAT 94
[2019-05-04 23:18] LABS: Glucose Point of Care 219 (65-105)
[2019-05-05] MEDS: LORAZEPAM INJ 2 MG/ML VIAL 0.5 MG IV PUSH ×2 (00:38→09:05)
[2019-05-05 06:00] VITALS: BP 106/61; PULSE 83; RESP 18; TEMP 37.2; O2SAT 92
[2019-05-05 06:20] LABS: Basophils Percent Auto 0.2 % (0.2-1.2); Eosinophils Absolute Auto 0.1 K/mm3 (0-0.3); Eosinophils Percent Auto 0.7 % (0-4.4); Hematocrit 38.6 % (37.0-47.0); Hemoglobin 12.7 g/dL (12.0-15.0); Immature Granulocyte Absolute 0.06 K/mm3 (0.00-0.031); Immature Granulocyte Percent A 0.7 % (0-0.5); Lymphocytes Percent Auto 19.6 % (18.3-44.2); Mean Corpuscular HGB Conc 32.9 g/dl (32-36); Mean Corpuscular Hemoglobin 30.3 pg (26-34); Mean Corpuscular Volume 92.1 fl (80-100); Mean Platelet Volume 9.9 fl (7.4-10.4); Monocytes Absolute Auto 0.5 K/mm3 (0.1-0.6); Monocytes Percent Auto 6.6 % (2.6-8.5); Neutrophils Absolute Auto 5.9 K/mm3 (1.3-6.7); Neutrophils Percent Auto 72.2 % (45.5-73.1); Platelet Count Result 219 k/mm3 (150-375); Red Blood Count 4.19 M/mm3 (4.2-5.4); Red Cell Distribution Width 13.9 % (11.5-14.5); White Blood Count 8.2 K/mm3 (4.5-10.0)
[2019-05-05 06:46] LABS: Alanine Aminotransferase 81 U/L (4-35); Albumin Level 3.4 g/dL (3.5-5.1); Alkaline Phosphatase 197 U/L (38-126); Aspartate Amino Transferase 60 U/L (14-36); Bilirubin,Total 0.5 mg/dL (0.2-1.3); Blood Urea Nitrogen 2 mg/dL (7-17); Calcium 8.9 mg/dL (8.4-10.2); Carbon Dioxide 36 mmol/L (22-30); Chloride 94 mmol/L (98-107); Estimated CRCL calculation 176 ml/min; Estimated Glomerular Filt Rate > 60; Glucose 159 mg/dL (65-105); Magnesium 1.7 mg/dL (1.6-2.3); Phosphorus 4.3 mg/dL (2.5-4.5); Potassium 4.1 mmol/L (3.4-5.0); Sodium 132 mmol/L (137-145)
[2019-05-05 08:58] LABS: Glucose Point of Care 172 (65-105)
[2019-05-05] MEDS: INSULIN GLARGINE (*BKC) 100 UNITS/ML 40 UNITS SUB-Q ×2 (09:07→21:28)
[2019-05-05] MEDS: INSULIN ASPART (*BKC) 100 UNITS/ML 6 UNITS SUB-Q ×3 (09:08→17:29)
[2019-05-05] MEDS: glipiZIDE 5 MG TABLET 10 MG PO ×2 (09:26→17:20)
[2019-05-05] MEDS: metFORMIN HCL 500 MG TABLET 1000 MG PO ×2 (09:27→17:20)
[2019-05-05] MEDS: CYCLOBENZAPRINE HCL 10 MG TABLET PO ×2 (09:27→17:20)
[2019-05-05] MEDS: ESCITALOPRAM OXALATE 10 MG TABLET PO (09:27)
[2019-05-05] MEDS: busPIRone HCL 10 MG TABLET 30 MG PO ×2 (09:27→17:21)
[2019-05-05] MEDS: DOXYCYCLINE HYCLATE 100 MG TABLET PO (11:12)
--- NOTE | 2019-05-05 12:05 | PM.PNGS ---
Progress Note: A&P Assessment and Plan (1) Mastitis of left breast unrelated to or : Code(s): N61.0 - Mastitis without abscess Status: Acute Assessment and Plan: Stable ? slight upward progression of the cellulitis on the skin of the left breast( I outlined this with a new skin markel today so that we will know if it progresses or recedes by tomorrow). Would continue IV antibiotics. patient may need repeat Lt breast US or need incision and drainage tomorrow. (2) Mastitis of right breast unrelated to of : Code(s): N61.0 - Mastitis without abscess Status: Acute Assessment and Plan: Continues to heal Additional Plan Since her IV is out right down Courage patient to shower and the then subsequently cover IV and shower daily Encouraged her to let ice warm water run on the left breast for a while drain her shower Discussed with patient and significant other that either repeat left breast ultrasound or needle aspiration and possible I&D may be required tomorrow if cellulitis worsens. Since patient due for doxycycline and IV not available will give 1 dose p.o. now and hopefully have IV in place for her noon dose of Pipracillin. DJ Subjective Subjective Date/Time Seen: 05/05/19 11:05 Patient is sitting up in bed when I entered the room. States that her IV infiltrated and they are working on getting a new 1 with ultrasound. States that she feels like the redness in her left breast to spreading out further. Still somewhat tender on the left breast. Fairly she has not been taking a shower each day. Encouraged this. She also feels like the lump in the 9 o'clock position of the left breast medially seems to be slightly larger and more tender. Review of Systems Review of Systems: All systems reviewed & are unremarkable except as noted in HPI and below (HPI) Constitutional: Constitutional: Reports as per HPI, Denies chills, Denies excessive sweating, Denies fatigue, Denies fever(s), Denies headache(s) and Denies weakness Cardiovascular: Cardiovascular: Denies chest pain, Denies syncope, Denies leg edema, Denies lightheadedness, Denies radiating jaw, neck or arm pain and Denies dyspnea Respiratory: Respiratory: Denies cough, Denies dyspnea and Denies wheezing Musculoskeletal: Musculoskeletal: Denies deformity, Denies joint swelling, Denies radiating pain into limb and Denies tingling Integumentary/Breasts: Skin/Breast: Reports as per HPI, Reports breast swelling (Bilateral - resolved in right breast, worsening in left breast), Reports breast pain (left), Reports breast mass (near right nipple and medial Lt. breast), Denies pruritus, Denies nipple discharge and Denies jaundice Neurologic: Denies dizziness, Denies syncope, Denies headache(s), Denies loss of vision, Denies tingling, Denies tremor(s) and Denies weakness Psychiatric: Psychiatric: Reports anxiety (takes home medication), Reports depression (takes home medication) and Denies suicidal ideation Allergic/Immunologic: Allergic/Immunologic: Denies wheezing Exam Const: General: comfortable, no acute distress, alert and awake Nutritional Appearance: well nourished HENMT: Head: normal to inspection, normocephalic and atraumatic Ears: hearing grossly normal bilaterally and external ears normal General nose exam: Normal external nose present Mouth: Yes Normal oral and palatal mucosa present and Yes moist mucous membranes Eyes: General: appearance normal, both eyes and all related structures Sclera: sclerae normal EOM: EOMs intact bilaterally Neck: Neck: normal visual inspection and full ROM Chest: Breast/axilla inspection: abnormal inspection of the breast (Left breast less erythematous, erythema is fading) left upper inner erythema, normal areola and other (swelling mass, no fluctuance left breast; mild tenderness) Breast/axilla palpation: abnormal palpation of the breast (Left breast indurated but
[2019-05-05] MEDS: LORAZEPAM 0.5 MG TABLET PO ×2 (12:25→18:44)
[2019-05-05 12:36] LABS: Glucose Point of Care 212 (65-105)
[2019-05-05] MEDS: INSULIN ASPART (*BKC) 100 UNITS/ML SUB-Q (13:13)
[2019-05-05 14:00] VITALS: BP 122/68; PULSE 84; RESP 18; TEMP 36.6; O2SAT 96
--- NOTE | 2019-05-05 16:15 | PM.IMPN ---
Progress Note: A&P Assessment and Plan (1) Abscess of left breast: Code(s): N61.1 - Abscess of the breast and nipple Status: Acute Assessment and Plan: Patient saw her FLOOR REPRESENTATIVE 04/30/19 and was started on oral bactrim at that time. Redness and pain worsened so she presented to ER. She notes she has been getting abscesses on her breasts for over 20 years. They will start as pimple-like bumps that she will pop and they go away. She has not required surgery in the past. Continue IV imipenem and doxycycline. (IV access lost this morning and one IV dose of doxycycline was replaced with an oral dose; IV access re-established and back on the IV regimen as scheduled now). Blood cultures pending with no growth to date. General surgery consulted - appreciate input. Noted Dr Chirinos's recommendation for possible repeat ultrasound and/or possible I&D. (2) Cellulitis of breast: Code(s): N61.0 - Mastitis without abscess Status: Acute Assessment and Plan: See above. (3) Sepsis: Qualifiers: Sepsis type: sepsis due to unspecified organism Sepsis acute organ dysfunction status: without acute organ dysfunction Qualified Code(s): A41.9 - Sepsis, unspecified organism Code(s): A41.9 - Sepsis, unspecified organism Status: Acute Assessment and Plan: Evident by tachycardia, leukocytosis, lactic acidosis - resolved. Suspected source is above. Vitals are stable, afebrile. Blood cultures pending with no growth to date. (4) Type 2 diabetes mellitus: Qualifiers: Diabetes mellitus terminal carman insulin use: with terminal carman use Diabetes mellitus complication status: with skin complications Diabetes mellitus complication detail: with other skin complication Qualified Code(s): E11.628 - Type 2 diabetes mellitus with other skin complications; Z79.4 - residential (current) use of insulin Code(s): E11.9 - Type 2 diabetes mellitus without complications Status: Acute Assessment and Plan: Uncontrolled type 2 diabetes. Her regimen includes glipizide and metformin; basaglar 70 U qAM and 65U qHS confirmed with pharmacy. She notes that her blood sugars have been high after orthopedic steroid injections a few weeks ago, but upon further questioning she admits that she does not check her blood sugars regularly and that she often misses doses of her basaglar. She does not follow a diabetic diet, drinks regular soda and eats sweets/cakes without checking blood sugar or dosing her insulin. A1c 10.3. Detailed discussions have been held with patient regarding the importance of tight glycemic control to promote wound healing, importance of checking blood sugars regularly and taking her medications as prescribed. Blood sugars now much improved today on BID insulin, sliding scale coverage, metformin, and Januvia, glipizide. Monitor with Accu-Cheks and adjust treatment as needed. (5) Tobacco abuse: Code(s): Z72.0 - Tobacco use Status: Chronic Assessment and Plan: Counseled on cessation. She has no interest in quitting. Declines nicotine patch. Ongoing tobacco use will also prolong wound healing. (6) Anxiety: Code(s): F41.9 - Anxiety disorder, unspecified Status: Chronic Assessment and Plan: Continue IV ativan PRN in addition to her home medications. 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 Subjective Date/time seen: 05/05/19 1300 In
[2019-05-05] MEDS: KETOROLAC 30 MG/ML VIAL (*BKC) IV PUSH (16:33)
[2019-05-05 17:34] LABS: Glucose Point of Care 164 (65-105)
[2019-05-05] MEDS: PRAVASTATIN SODIUM 20 MG TABLET 40 MG PO (21:21)
[2019-05-05] MEDS: DESIPRAMINE HCL 25 MG TABLET 50 MG PO (21:22)
[2019-05-05] MEDS: FAMOTIDINE 20 MG TABLET PO (21:22)
[2019-05-05 22:00] VITALS: BP 114/62; PULSE 85; RESP 18; TEMP 36.7; O2SAT 97
[2019-05-05] MEDS: ZOLPIDEM TARTRATE 5 MG TABLET PO (22:01)
[2019-05-05 22:22] LABS: Glucose Point of Care 205 (65-105)
[2019-05-06] MEDS: LORAZEPAM 0.5 MG TABLET PO ×3 (04:19→19:00)
[2019-05-06] MEDS: KETOROLAC 30 MG/ML VIAL (*BKC) IV PUSH ×2 (04:19→19:43)
[2019-05-06 06:00] VITALS: BP 114/72; PULSE 72; RESP 18; TEMP 36.8; O2SAT 93
[2019-05-06 06:27] LABS: Blood Urea Nitrogen 4 mg/dL (7-17); Calcium 8.7 mg/dL (8.4-10.2); Carbon Dioxide 30 mmol/L (22-30); Chloride 99 mmol/L (98-107); Estimated CRCL calculation 224 ml/min; Estimated Glomerular Filt Rate > 60; Glucose 167 mg/dL (65-105); Potassium 3.8 mmol/L (3.4-5.0); Sodium 132 mmol/L (137-145)
[2019-05-06 06:41] LABS: INR 0.9; Prothrombin Time 12.1 Seconds (11.1-14.7)
[2019-05-06] MEDS: CYCLOBENZAPRINE HCL 10 MG TABLET PO ×2 (08:51→17:13)
[2019-05-06] MEDS: busPIRone HCL 10 MG TABLET 30 MG PO ×2 (08:52→17:09)
[2019-05-06] MEDS: glipiZIDE 5 MG TABLET 10 MG PO ×2 (08:52→17:10)
[2019-05-06] MEDS: ESCITALOPRAM OXALATE 10 MG TABLET PO (08:52)
[2019-05-06] MEDS: metFORMIN HCL 500 MG TABLET 1000 MG PO ×2 (08:52→17:10)
[2019-05-06] MEDS: INSULIN ASPART (*BKC) 100 UNITS/ML 6 UNITS SUB-Q ×3 (08:57→17:12)
[2019-05-06] MEDS: INSULIN GLARGINE (*BKC) 100 UNITS/ML 40 UNITS SUB-Q ×2 (08:59→20:19)
[2019-05-06 09:18] LABS: Glucose Point of Care 158 (65-105)
--- NOTE | 2019-05-06 10:28 | PM.IMPN ---
Progress Note: A&P Assessment and Plan (1) Abscess of left breast: Code(s): N61.1 - Abscess of the breast and nipple Status: Acute Assessment and Plan: Patient saw her PAIL BAILER 04/30/19 and was started on oral Bactrim at that time. Redness and pain worsened so she presented to ER. She notes she has been getting abscesses on her breasts for over 20 years. They will start as pimple-like bumps that she will pop and they go away. Reports she has not required surgery or I&D in the past. Continue IV imipenem and doxycycline. Blood cultures pending with no growth to date. General surgery consulted - appreciate input. (2) Cellulitis of breast: Code(s): N61.0 - Mastitis without abscess Status: Acute Assessment and Plan: See above. (3) Sepsis: Qualifiers: Sepsis acute organ dysfunction status: without acute organ dysfunction Sepsis type: sepsis due to unspecified organism Qualified Code(s): A41.9 - Sepsis, unspecified organism Code(s): A41.9 - Sepsis, unspecified organism Status: Acute Assessment and Plan: Evident by tachycardia, leukocytosis, lactic acidosis - resolved. Suspected source is above. Vitals are stable, afebrile. Blood cultures pending with no growth to date. 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 Her regimen includes BID basalgar, glipizide, Januvia, and metformin; basaglar 70 U qAM and 65U qHS confirmed with pharmacy. Noncompliant. She admits to not checking her sugars regularly, missing insulin doses, and consuming foods high in carbs and sugar. A1c 10.3. Detailed discussions have been held with patient regarding the importance of tight glycemic control to promote wound healing, importance of checking blood sugars regularly and taking her medications as prescribed. Blood sugars now improved on BID insulin, sliding scale coverage, metformin, and Januvia, glipizide. Monitor with Accu-Cheks and adjust treatment as needed. (5) Tobacco abuse: Code(s): Z72.0 - Tobacco use Status: Chronic Assessment and Plan: Counseled on cessation. She has no interest in quitting. Declines nicotine patch. Ongoing tobacco use will also prolong wound healing. (6) Anxiety: Code(s): F41.9 - Anxiety disorder, unspecified Status: Chronic Assessment and Plan: Continue IV ativan PRN in addition to her home Buspar and Lexapro. 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 Subjective Date/time seen: 05/06/19 10:00 Interval history: Ms. Nicole is a 48yo F admitted with cellulitis of the left breast. She is resting comfortably at time of my exam. She notices the redness has improved today. She denies any chest pain, shortness of breath, or calf tenderness. She tolerated breakfast without nausea or vomiting. No itching today. Review of Systems Review of Systems: Narrative: Twelve systems were reviewed with pertinent positives and negatives as per HPI. Exam Narrative: Exam Narrative:
[2019-05-06 12:16] LABS: Glucose Point of Care 322 (65-105)
[2019-05-06] MEDS: INSULIN ASPART (*BKC) 100 UNITS/ML SUB-Q (12:21)
[2019-05-06 14:00] VITALS: BP 131/66; PULSE 84; RESP 18; TEMP 36.6; O2SAT 100
--- NOTE | 2019-05-06 14:01 | PM.PNGS ---
Progress Note: A&P Assessment and Plan (1) Mastitis of left breast unrelated to or : Code(s): N61.0 - Mastitis without abscess Status: Acute Assessment and Plan: Stable to improved has the cellulitis in the left breast looks less intense and did not extend beyond anything and I marked yesterday. Would continue IV antibiotics. (2) Mastitis of right breast unrelated to of : Code(s): N61.0 - Mastitis without abscess Status: Acute Assessment and Plan: Continues to heal Additional Plan Encouraged pt to cover IV and shower daily Encouraged her to let nice warm water run on the left breast for a while during her shower Discussed with patient and significant other that either repeat left breast ultrasound or needle aspiration and possible I&D may be required tomorrow if cellulitis worsens. (The cellulitis did not extend beyond where I marked it yesterday and the intensity of the redness is less in my estimation so no further intervention completed). Subjective Subjective Date/Time Seen: 05/06/19 14:01 Tila was sleeping when I entered the room. She states she feels like the breast last today. But otherwise no changes. her nurse states that she feels like the redness of the left breast has decreased in intensity. Review of Systems Constitutional: Constitutional: Reports as per HPI, Denies chills, Denies excessive sweating, Denies fatigue, Denies fever(s), Denies headache(s) and Denies weakness ENT: Denies dysphagia, Denies dizziness and Denies headache(s) Cardiovascular: Cardiovascular: Denies chest pain, Denies syncope, Denies leg edema, Denies lightheadedness, Denies radiating jaw, neck or arm pain and Denies dyspnea Respiratory: Respiratory: Denies cough, Denies dyspnea and Denies wheezing Integumentary/Breasts: Skin/Breast: Reports as per HPI, Reports breast swelling (Bilateral - resolved in right breast, also now improving in left breast), Reports breast pain (left), Reports breast mass (near right nipple and medial Lt. breast.), Denies pruritus, Denies nipple discharge and Denies jaundice Neurologic: Denies dizziness, Denies syncope, Denies headache(s), Denies loss of vision, Denies tingling, Denies tremor(s) and Denies weakness Psychiatric: Psychiatric: Reports anxiety (takes home medication), Reports depression (takes home medication) and Denies suicidal ideation Endocrine: Endocrine: Denies cold intolerance, Denies excessive sweating, Denies fatigue and Denies heat intolerance Allergic/Immunologic: Allergic/Immunologic: Denies wheezing Exam Const: General: comfortable, no acute distress, alert and awake Nutritional Appearance: well nourished HENMT: Head: normal to inspection, normocephalic and atraumatic Ears: hearing grossly normal bilaterally and external ears normal General nose exam: Normal external nose present Mouth: Yes Normal oral and palatal mucosa present and Yes moist mucous membranes Eyes: General: appearance normal, both eyes and all related structures Sclera: sclerae normal EOM: EOMs intact bilaterally Neck: Neck: normal visual inspection and full ROM Chest: Breast/axilla inspection: abnormal inspection of the breast (Left breast less erythematous, erythema is fading) left upper inner erythema, normal areola and other (swelling mass, no fluctuance left breast; mild tenderness) Breast/axilla palpation: abnormal palpation of the breast (Left breast indurated but no fluctuance, less tender) Resp: Effort & Inspection: normal respiratory effort, able to speak in complete sentences and no respiratory distress Auscultation: clear to auscultation bilaterally Skin: General skin exam: normal color and no rashes or lesions noted Other: Left breast: 10 x 11 cm area of erythema and induration with warmth in the lower inner quadrant of the breast near 8 o'clock position. No fluctuance or obvious abscess on inspection. Small punct
[2019-05-06 17:10] LABS: Glucose Point of Care 188 (65-105)
--- NOTE | 2019-05-06 20:00 | PC.NURSE ---
Offered patient to help her put her belongings that are on the chair and on the floor in the closet but patient declined.
[2019-05-06] MEDS: DESIPRAMINE HCL 25 MG TABLET 50 MG PO (20:14)
[2019-05-06] MEDS: ZOLPIDEM TARTRATE 5 MG TABLET PO (20:15)
[2019-05-06] MEDS: PRAVASTATIN SODIUM 20 MG TABLET 40 MG PO (20:15)
[2019-05-06] MEDS: FAMOTIDINE 20 MG TABLET PO (20:15)
[2019-05-06 20:24] LABS: Glucose Point of Care 250 (65-105)
[2019-05-06 23:39] VITALS: BP 123/82; PULSE 72; RESP 20; TEMP 37.7; O2SAT 95
[2019-05-07 00:10] VITALS: TEMP 36.6
[2019-05-07 06:00] VITALS: BP 131/73; PULSE 61; RESP 20; TEMP 36.9; O2SAT 98
[2019-05-07 06:12] LABS: Hematocrit 38.5 % (37.0-47.0); Hemoglobin 12.9 g/dL (12.0-15.0); Mean Corpuscular HGB Conc 33.5 g/dl (32-36); Mean Corpuscular Hemoglobin 30.3 pg (26-34); Mean Corpuscular Volume 90.4 fl (80-100); Mean Platelet Volume 9.7 fl (7.4-10.4); Platelet Count Result 276 k/mm3 (150-375); Red Blood Count 4.26 M/mm3 (4.2-5.4); Red Cell Distribution Width 14.3 % (11.5-14.5); White Blood Count 7.3 K/mm3 (4.5-10.0)
[2019-05-07 06:30] LABS: Carbon Dioxide 27 mmol/L (22-30); Estimated CRCL calculation 224 ml/min; Estimated Glomerular Filt Rate > 60
[2019-05-07 06:47] LABS: Blood Urea Nitrogen 4 mg/dL (7-17); Calcium 8.8 mg/dL (8.4-10.2); Chloride 101 mmol/L (98-107); Glucose 126 mg/dL (65-105); Magnesium 1.6 mg/dL (1.6-2.3); Potassium 3.9 mmol/L (3.4-5.0); Sodium 135 mmol/L (137-145)
--- NOTE | 2019-05-07 07:05 | PM.PNGS ---
Progress Note: A&P Assessment and Plan (1) Mastitis of left breast unrelated to or : Code(s): N61.0 - Mastitis without abscess Status: Acute Assessment and Plan: Much improved. Probably could go home on doxycycline either today or tomorrow. I would see her in the office in approximately 1 week. (2) Mastitis of right breast unrelated to of : Code(s): N61.0 - Mastitis without abscess Status: Acute Assessment and Plan: Continues to heal. (3) Diabetes mellitus out of control: Code(s): E11.65 - Type 2 diabetes mellitus with hyperglycemia Status: Acute Assessment and Plan: Blood sugars still high but not sure how much more improvement we will get as patient is noncompliant. Subjective Subjective Date/Time Seen: 05/07/19 07:05 No new complaints. Left breast feels better. Less tender and less painful. Review of Systems Review of Systems: All systems reviewed & are unremarkable except as noted in HPI and below ( HPI) Constitutional: Constitutional: Denies chills, Denies fever(s), Denies malaise and Denies night sweats Exam Chest: Breast/axilla inspection: abnormal inspection of the breast ( left breast erythema nearly gone. Now really a light pink color.) Breast/axilla palpation: abnormal palpation of the breast ( No fluctuance, minimal tenderness left breast mastitis.) Objective Data Vital Signs Vital Signs: Vital Signs - 24 hr 05/06/19 14:00 05/06/19 23:39 05/07/19 00:10 Temperature 36.6 C 37.7 C H 36.6 C Pulse Rate 84 72 Respiratory Rate 18 20 Blood Pressure 131/66 123/82 Pulse Oximetry 100 95 05/07/19 06:00 Temperature 36.9 C Pulse Rate 61 Respiratory Rate 20 Blood Pressure 131/73 Pulse Oximetry 98 Intake/Output Intake/Output: Intake & Output 05/04/19 05/05/19 05/06/19 05/07/19 23:59 23:59 23:59 23:59 Intake Total 3460 2610 1880 300 Output Total 4900 3200 2800 900 Balance -1440 -590 -920 -600 Meds/Results Medications: Active Medications Generic Name Dose Route Start Last Admin Trade Name Freq PRN Reason Stop Dose Admin Buspirone HCl 30 mg 05/02/19 22:00 05/06/19 17:09 Buspar PO 30 mg BID [place] Administration Cyclobenzaprine HCl 10 mg 05/02/19 22:00 05/06/19 17:13 Flexeril PO 10 mg BID [place] Administration Desipramine HCl 50 mg 05/02/19 22:00 05/06/19 20:14 Desipramine Hcl PO 50 mg HS [place] Administration Diphenhydramine HCl 25 mg 05/03/19 17:07 05/04/19 19:45 Benadryl Cap PO 25 mg Q6H PRN Administration Itching Escitalopram Oxalate 10 mg 05/03/19 09:00 05/06/19 08:52 Lexapro PO 10 mg DAILY [place] Administration Famotidine 20 mg 05/02/19 22:00 05/06/19 20:15 Pepcid PO 20 mg HS [place] Administration Glipizide 10 mg 05/04/19 17:00 05/06/19 17:10 Glucotrol PO 10 mg BIDWM [facility] Administration Doxycycline Hyclate 100 mg/ 100 mls @ 100 mls/hr 05/03/19 09:00 05/06/19 21:21 Dextrose IVPB Infused Q12HR [facility] Infusion Imipenem/Cilastatin Sodium 500 mg in 100 mls @ 300 mls/hr 05/03/19 12:00 05/07/19 05:43 Primaxin 500 Mg/D5w 100 Ml IVPB Infused Q6H [facility] Infusion Insulin Aspart 4 - 8 units 05/03/19 08:00 05/06/19 17:12 Novolog SUB-Q Not Given TIDWM [facility] Protocol Insulin Aspart 6 units 05/04/19 17:00 05/06/19 17:12 Novolog 0.05 units/kg (6 units) 6 units SUB-Q Administration TIDWM [facility] Insulin Glargine 40 units 05/05/19 09:00 05/06/19 08:59 Lantus SUB-Q 40 units QAM [facility] Administration Insulin Glargine 40 units 05/04/19 13:55 05/06/19 20:19 Lantus SUB-Q 40 units HS [place] Administration Ketorolac Tromethamine 30 mg 05/02/19 22:11 05/06/19 19:43 Toradol Inj IV PUSH 30 mg Q6H PRN Administration Pain Rated 4-6 Lorazepam 0.5 mg 05/05/19 11:48 05/06/19 19:00 Ativan Tab PO 0.5 mg Q6H PRN Administration Anxiet
[2019-05-07] MEDS: ESCITALOPRAM OXALATE 10 MG TABLET PO (08:48)
[2019-05-07] MEDS: metFORMIN HCL 500 MG TABLET 1000 MG PO (08:49)
[2019-05-07] MEDS: CYCLOBENZAPRINE HCL 10 MG TABLET PO (08:49)
[2019-05-07] MEDS: busPIRone HCL 10 MG TABLET 30 MG PO (08:49)
[2019-05-07] MEDS: glipiZIDE 5 MG TABLET 10 MG PO (08:49)
[2019-05-07] MEDS: INSULIN ASPART (*BKC) 100 UNITS/ML 6 UNITS SUB-Q ×2 (08:54→11:41)
[2019-05-07] MEDS: INSULIN GLARGINE (*BKC) 100 UNITS/ML 40 UNITS SUB-Q (08:54)
[2019-05-07 09:05] LABS: Glucose Point of Care 153 (65-105)
[2019-05-07] MEDS: MAGNESIUM SULF 2 GM/WATER 50ML 2 GM/50 ML BAG IVPB (10:36)
[2019-05-07 11:37] LABS: Glucose Point of Care 244 (65-105)
[2019-05-07] MEDS: INSULIN ASPART (*BKC) 100 UNITS/ML SUB-Q (11:40)
[2019-05-07] MEDS: LORAZEPAM 0.5 MG TABLET PO (12:32)
[2019-05-07 14:00] VITALS: BP 112/64; PULSE 83; RESP 16; TEMP 36.7; O2SAT 97
--- NOTE | 2019-05-07 14:35 | PM.DS ---
DS: Diagnosis Admitting Diagnosis Admitting Diagnosis: Sepsis, unspecified organism Discharge Diagnosis (1) Abscess of left breast: Code(s): N61.1 - Abscess of the breast and nipple Status: Acute Assessment and Plan: Date of Service 05/07/19 Ms. Nicole is a 48yo F with uncontrolled insulin-dependent type 2 diabetes mellitus, anxiety, and long-term opioid use due to chronic back pain, who presented to the ER for evaluation of redness, swelling, pain to L breast. She was treated for left breast cellulitis with IV imipenem and doxycycline (due to an allergy to vancomycin). She was also seen and evaluated by General Surgery, Dr Baptiste. It was felt that the area of concern was not amendable to I&D at this time. She was discharged with oral doxycycline to complete the course and instructions to follow up with Dr Baptiste's office in 10 days. Hgb A1C 10.3. She admitted to not taking her insulin as prescribed or checking her blood sugars at home. Several detailed discussions were held surrounding diabetes education and the importance of well-controlled blood sugars to promote wound healing. Ms. Nicole often gets tearful and/or agitated during these educational discussions regarding her diabetes and smoking cessation. She was hemodynamically stable for discharge 05/07/19 with instructions to follow up with Dr Baptiste's office and PCP. Consultation: -- General Surgery - Dr Baptiste Patient saw her [facility] 04/30/19 and was started on oral Bactrim at that time. Redness and pain worsened so she presented to ER. She notes she has been getting abscesses on her breasts for over 20 years. They will start as pimple-like bumps that she will pop and they go away. Reports she has not required surgery or I&D in the past. Treated with IV imipenem and doxycycline. Discharged with oral doxycycline. Blood cultures negative. General surgery consulted - follow up 10 days. (2) Cellulitis of breast: Code(s): N61.0 - Mastitis without abscess Status: Acute Assessment and Plan: See above. (3) Sepsis: Qualifiers: Sepsis type: sepsis due to unspecified organism Sepsis acute organ dysfunction status: without acute organ dysfunction Qualified Code(s): A41.9 - Sepsis, unspecified organism Code(s): A41.9 - Sepsis, unspecified organism Status: Acute Assessment and Plan: Evident by tachycardia, leukocytosis, lactic acidosis - resolved. Suspected source is above. Vitals are stable, afebrile. Blood cultures negative. (4) Type 2 diabetes mellitus: Qualifiers: Diabetes mellitus continuous churn buttermaker insulin use: with jail use Diabetes mellitus complication status: with skin complications Diabetes mellitus complication detail: with other skin complication Qualified Code(s): E11.628 - Type 2 diabetes mellitus with other skin complications; Z79.4 - assisted (current) use of insulin Code(s): E11.9 - Type 2 diabetes mellitus without complications Status: Acute Assessment and Plan: Uncontrolled type 2 diabetes. Her regimen includes BID basalgar, glipizide, Januvia, and metformin; basaglar 70 U qAM and 65U qHS confirmed with pharmacy. Noncompliant. She admits to not checking her sugars regularly, missing insulin doses, and consuming foods high in carbs and sugar. A1c 10.3. Detailed discussions have been held with patient regarding the importance of tight glycemic control to promote wound healing, importance of checking blood sugars regularly and taking her medications as prescribed. Blood sugars now improved on BID insulin, sliding scale coverage, metformin, and Januvia, glipizide. (5) Tobacco abuse: Code(s): Z72.0 - Tobacco use Status: Chronic Assessment and Plan: Counseled on cessation. She has no interest
== END 2019-05-07 15:30 | disposition home or self-care (01) | DRG 872 ==
LOC: ANHED 18:48 → ANH3MEDSUR 19:58
PROVIDERS: Emergency Medicine Emergency Medical Services; Internal Medicine; Physician Assistant; Admitting Provider Hospitalist; Emergency Provider Emergency Medicine; PCP Family Medicine; Visit Provider Internal Medicine
DX: A41.9 Sepsis, unspecified organism (principal); E87.2 Acidosis; Z68.42 Body mass index [BMI] 45.0-49.9, adult; F11.20 Opioid dependence, uncomplicated; N61.1 Abscess of the breast and nipple; N61.0 Mastitis without abscess; E66.01 Morbid (severe) obesity due to excess calories; G89.29 Other chronic pain; E11.65 Type 2 diabetes mellitus with hyperglycemia; D64.9 Anemia, unspecified; F41.8 Other specified anxiety disorders; K21.9 Gastro-esophageal reflux disease without esophagitis; E78.5 Hyperlipidemia, unspecified; J45.909 Unspecified asthma, uncomplicated; G25.81 Restless legs syndrome; M48.00 Spinal stenosis, site unspecified; F17.210 Nicotine dependence, cigarettes, uncomplicated; Z90.710 Acquired absence of both cervix and uterus; Z90.49 Acquired absence of other specified parts of digestive tract; Z79.4 Long term (current) use of insulin
CPT/HCPCS: 36415; 71045; 76642; 80048; 80053; 81001; 82010; 82948; 83036; 83605; 83735; 84100; 85025; 85027; 85610; 85730; 86140; 87040; 96361; 96365; 96366; 96367; 96375; 96376; 99285; A9270; G0378; G0379; J0131; J0690; J0712; J0743; J1200; J1741; J1815; J1885; J2060; J2405; J3475; J7030; J7120

== ENCOUNTER 2019-06-13 12:00 | Emergency (ER) | payer OTHER, SELFPAY ==
[2019-06-13] VITALS (7 sets, daily range): BP systolic 123–150; BP diastolic 74–90; PULSE 91–102; RESP 14–18; TEMP 37.3; O2SAT 95–99
--- NOTE | ~2019-06-13 | US_ITS ---
US breast LT limited DATE: 06/13/2019 13:55 INDICATION: Left breast cellulitis, abscess. Patient has been on antibiotics but the atelectasis has been worsening TECHNIQUE: Real-time imaging and Doppler analysis of left breast COMPARISON: 05/03/2019 left Limited breast ultrasound examination FINDINGS: There is a large irregular confluent complicated cystic appearing mass of the left breast f rom 9-11 o'clock 5 cm from the nipple, corresponding to the area of palpable abnormality, likely an a bscess with significantly increased size and less circumscribed margins compared to 05/03/2019. Differ ential diagnosis includes a very aggressive breast malignancy. Surgical consult is recommended. IMPRESSION: Increased size of large complicated cystic mass of left breast since 05/03/2019, suggestin g worsening abscess. A very aggressive breast malignancy cannot be excluded. Surgical consultation is recommended. Reviewed, dictated and finalized at [facility] Reviewed, dictated and finalized at [facility] IMPRESSION: Increased size of large complicated cystic mass of left breast sinc e 05/03/2019, suggesting worsening abscess. A very aggressive breast malignancy cannot be excluded. Surgical consultation is recommended.
--- NOTE | ~2019-06-13 | US_ITS ---
US breast cyst asp LT DATE: 06/13/2019 16:23 INDICATION: Left breast abscess TECHNIQUE: The diagnostic purpose of the procedure for culture and sensitivity was discussed with the patient. Technique was described. The patient indicated understanding and gave consent. The skin of the upper breast was prepared with sterile solution. Sterile drapes were applied. Using u ltrasound guidance, an 18-gauge spinal needle was introduced into the abscess cavity. Thick milky bro wnish fluid was aspirated, totaling 8 cc. Additional fluid could not be obtained from the area of the percutaneous aspiration attempt. IMPRESSION: 8 cc thick brownish milky pus was aspirated for cultures and sensitivity Reviewed, dictated and finalized at [facility] Reviewed, dictated and finalized at [facility]. IMPRESSION: 8 cc thick brownish milky pus was aspirated for cultures and sensit ivity
--- NOTE | 2019-06-13 12:02 | ED.GENADULT ---
HPI - General Adult General Chief complaint: Wound/Laceration Stated complaint: lump in left breast Time Seen by Provider: 06/13/19 12:02 Source: patient and family Mode of arrival: ambulatory Limitations: no limitations History of Present Illness HPI narrative: Patient is a 48-year-old female with a history of type 2 diabetes who presents for evaluation of recurrent left breast redness, pain. Patient was sent in from Dr. Koch's office for evaluation of left breast, which is now painful for the patient. Patient reports 3-day history of worsening redness, warmth and pain. Patient denies fever, chills, nausea or vomiting. No discharge from the breast. Patient finished her prescription of doxycycline as prescribed, was doing better for short interval of time, and then since developed recurrent symptoms. Blood glucoses have been in the 300s. Patient states she has been taking Percocet for pain with minimal improvement. Related Data Home Medications Medication Instructions Recorded Confirmed Januvia 100 mg PO HS 01/07/19 05/29/19 Requip 2 mg PO BID 01/07/19 05/29/19 buspirone 30 mg PO BID 01/07/19 05/29/19 desipramine 50 mg PO HS 01/07/19 05/29/19 escitalopram oxalate [Lexapro] 10 mg PO DAILY 01/07/19 05/29/19 glipizide 10 mg PO BID 01/07/19 05/29/19 metformin 1,000 mg PO BID 01/07/19 05/29/19 oxycodone-acetaminophen [Percocet] 1 tablet PO Q6H PRN 01/07/19 05/29/19 pravastatin 40 mg PO HS 01/07/19 05/29/19 Ambien 5 mg/day PO HS 05/02/19 05/29/19 cyclobenzaprine 10 mg PO BID 05/02/19 05/29/19 famotidine [Pepcid] 20 mg PO HS 05/02/19 05/29/19 Basaglar KwikPen U-100 Insulin 65 unit SUBCUT HS 05/04/19 05/29/19 Basaglar KwikPen U-100 Insulin 70 unit SUBCUT QA 05/04/19 05/29/19 Allergies Allergy/AdvReac Type Severity Reaction Status Date / Time morphine Allergy Unknown Other Verified 06/13/19 12:14 Sulfa (Sulfonamide Allergy Unknown Hives Verified 06/13/19 12:14 Antibiotics) vancomycin Allergy Unknown Hives Verified 06/13/19 12:14 Review of Systems Review of Systems: Narrative: CONSTITUTIONAL: Denies fever, chills, or sweats. ENT: Denies rhinorrhea, congestion, sore throat, or otalgia. CARDIOVASCULAR: Denies chest pain, palpitations, or edema. RESPIRATORY: Denies cough or dyspnea. GASTROINTESTINAL: Denies abdominal pain, nausea, vomiting, or diarrhea. GENITOURINARY: Denies dysuria or hematuria. SKIN: Reports left breast warmth, edema, erythema MUSCULOSKELETAL: Denies back pain, joint pain, or myalgia. NEUROLOGIC: Denies headache, numbness, or weakness. [facility] Past Medical History Medical History Anemia Prior to hysterectomy Anxiety Asthma Depression Ganglion cyst lt foot GERD (gastroesophageal reflux disease) Hyperlipidemia Polycystic ovaries Restless leg syndrome Spinal stenosis Type 2 diabetes mellitus Surgical History Surgical History H/O arthroscopy lt knee H/O laparoscopy Multiple in her teenage years due to dysfunctional uterine bleeding. H/O tubal ligation H/O: hysterectomy Due to dysfunctional uterine bleeding Hx of appendectomy Hx of cholecystectomy Hx of tonsillectomy Family History Family History Mother Hypertension Social History Social History Social History: Patient is an only child. She does not know her father's history. Her son has a drug problem. Her daughter is obese. Primary care physician: Dr. Gil Berg Smoking packs per day: 1 Smoking cigarettes per day: 20.0 Years smoked: 30 Smoking pack-years: 30.00 Smoking status: Current every day smoker Tobacco type: cigarettes Second hand tobacco smoke exposure: Yes Alcohol intake: former Substance use type: does not use Additional occupation/education comments: On disability.
[2019-06-13] MEDS: HYDROMORPHONE HCL 1 MG/ML INJ 0.5 MG IV PUSH ×2 (12:43→15:40)
[2019-06-13] MEDS: ONDANSETRON INJ 4 MG/2 ML VIAL IV PUSH (12:43)
[2019-06-13 12:48] LABS: Glucose Point of Care 333 (65-105)
[2019-06-13 12:51] LABS: Basophils Absolute Auto 0.1 K/mm3 (0.0-0.1); Basophils Percent Auto 0.4 % (0.2-1.2); Eosinophils Absolute Auto 0.1 K/mm3 (0-0.3); Eosinophils Percent Auto 0.5 % (0-4.4); Hematocrit 41.8 % (37.0-47.0); Hemoglobin 13.7 g/dL (12.0-15.0); Immature Granulocyte Absolute 0.07 K/mm3 (0.00-0.031); Immature Granulocyte Percent A 0.5 % (0-0.5); Lymphocytes Absolute Auto 1.79 K/mm3 (0.9-3.2); Lymphocytes Percent Auto 12.6 % (18.3-44.2); Mean Corpuscular HGB Conc 32.8 g/dl (32-36); Mean Corpuscular Volume 91.7 fl (80-100); Mean Platelet Volume 10.6 fl (7.4-10.4); Monocytes Absolute Auto 0.8 K/mm3 (0.1-0.6); Monocytes Percent Auto 5.6 % (2.6-8.5); Neutrophils Absolute Auto 11.4 K/mm3 (1.3-6.7); Neutrophils Percent Auto 80.4 % (45.5-73.1); Platelet Count Result 247 k/mm3 (150-375); Red Blood Count 4.56 M/mm3 (4.2-5.4); Red Cell Distribution Width 13.5 % (11.5-14.5); White Blood Count 14.2 K/mm3 (4.5-10.0)
[2019-06-13 13:08] LABS: Blood Urea Nitrogen 5 mg/dL (7-17); Carbon Dioxide 27 mmol/L (22-30); Chloride 96 mmol/L (98-107); Estimated CRCL calculation 240 ml/min; Estimated Glomerular Filt Rate > 60; Potassium 4.2 mmol/L (3.4-5.0); Sodium 133 mmol/L (137-145)
[2019-06-13 13:09] LABS: CRP 5.8 mg/dL (<1.0); Calcium 9.1 mg/dL (8.4-10.2); Glucose 321 mg/dL (65-105)
[2019-06-13 13:32] LABS: Erythrocyte Sedimentation Rate 23 mm/hr (0-20)
--- NOTE | 2019-06-13 14:36 | PC.NURSE ---
Assumed care of pt, pt is alert and upright on stretcher, discussed POC. VSS.
[2019-06-13] MEDS: CLINDAMYCIN HCL 150 MG CAP 300 MG PO (15:41)
== END 2019-06-13 17:01 | disposition home or self-care (01) ==
PROVIDERS: Emergency Provider Emergency Medicine; PCP Family Medicine
DX: N61.1 Abscess of the breast and nipple (principal); N60.02 Solitary cyst of left breast; K21.9 Gastro-esophageal reflux disease without esophagitis; E78.5 Hyperlipidemia, unspecified; J45.909 Unspecified asthma, uncomplicated; E11.9 Type 2 diabetes mellitus without complications; G25.81 Restless legs syndrome; F32.9 Major depressive disorder, single episode, unspecified; F41.9 Anxiety disorder, unspecified; Z86.2 Personal history of diseases of the blood and blood-forming organs and certain disorders involving the immune mechanism; F17.210 Nicotine dependence, cigarettes, uncomplicated; Z79.84 Long term (current) use of oral hypoglycemic drugs; Z79.4 Long term (current) use of insulin
CPT/HCPCS: 19000; 36415; 76642; 80048; 82948; 85025; 85652; 86140; 87070; 87147; 87186; 87205; 96374; 96375; 96376; 99284; A9270; J1170; J2405

== ENCOUNTER 2019-06-18 10:41 | Observation (INO) | payer OTHER, SELFPAY ==
[2019-06-18] VITALS (16 sets, daily range): BP systolic 101–153; BP diastolic 53–92; PULSE 74–100; RESP 13–20; TEMP 36.2–37.1; O2SAT 92–100; BMI 45.8; BMI 47.3
--- NOTE | ~2019-06-18 | US_ITS ---
US breast LT limited DATE: 06/18/2019 12:01 INDICATION: Left breast abscess TECHNIQUE: High-resolution ultrasound imaging and color flow imaging of the left breast targeted to a maggie of complaint at 9:00 COMPARISON: 06/13/2019 limited left breast ultrasound FINDINGS: There is a persistent large irregular complicated multilocular cystic mass at 9:00 position , measuring in excess of 5 cm maximal dimension, with surrounding prominent increased vascularity con sistent with inflammation. IMPRESSION: Persistent large left breast abscess, without improvement since 06/13/2019 Reviewed, dictated and finalized at [facility] Reviewed, dictated and finalized at [facility]. IMPRESSION: Persistent large left breast abscess, without improvement since 05/23
--- NOTE | 2019-06-18 11:48 | ED.WOUNDLAC ---
HPI - Wound/Laceration General Chief Complaint: Wound/Laceration Stated Complaint: left breast infection Time Seen by Provider: 06/18/19 11:12 Source: patient and family Mode of arrival: ambulatory Limitations: no limitations History of Present Illness HPI narrative: Patient is a 48-year-old female with a history of type 2 diabetes who presents for reevaluation of recurrent left breast redness, pain. Patient was seen in this ED 06/12 after being sent from Dr. Koch's office for evaluation of left breast, which is now painful for the patient. Patient reports she was hospitalized the beginning of this month for 6 days for left breast infection and received IV antibiotics. She followed up with Dr Baptiste and was cleared. She then noticed the swelling and redness last tuesday and was seen in Dr Murrell office and was sent here. She reports she had ultrasound guided drainage and was sent home on Clindamycin, but the pain and swelling continues to worsen. She reports she was referred back to surgery and when she called Dr Monte office this morning she was instructed to come to the ER. Patient denies fever, chills, nausea or vomiting. No discharge from the breast, but her nipple has become inverted on the left side. Patient finished her prescription of doxycycline as prescribed, was doing better for short interval of time, and then since developed recurrent symptoms even while now taking Clindamycin for almost 1 week TID. Blood glucoses have been in the 300s. Patient states she has been taking Percocet for pain with minimal improvement, she takes it regularly for her back and hip pain. She states she wanted to get to the ER to be seen today so she did not take anything for pain prior to coming. Related Data Home Medications Medication Instructions Recorded Confirmed Januvia 100 mg PO HS 01/07/19 05/29/19 Requip 2 mg PO BID 01/07/19 05/29/19 buspirone 30 mg PO BID 01/07/19 05/29/19 desipramine 50 mg PO HS 01/07/19 05/29/19 escitalopram oxalate [Lexapro] 10 mg PO DAILY 01/07/19 05/29/19 glipizide 10 mg PO BID 01/07/19 05/29/19 metformin 1,000 mg PO BID 01/07/19 05/29/19 oxycodone-acetaminophen [Percocet] 1 tablet PO Q6H PRN 01/07/19 05/29/19 pravastatin 40 mg PO HS 01/07/19 05/29/19 Ambien 5 mg/day PO HS 05/02/19 05/29/19 cyclobenzaprine 10 mg PO BID 05/02/19 05/29/19 famotidine [Pepcid] 20 mg PO HS 05/02/19 05/29/19 Basaglar KwikPen U-100 Insulin 65 unit SUBCUT HS 05/04/19 05/29/19 Basaglar KwikPen U-100 Insulin 70 unit SUBCUT QAM 05/04/19 05/29/19 Allergies Allergy/AdvReac Type Severity Reaction Status Date / Time morphine Allergy Unknown Other Verified 06/18/19 10:48 Sulfa (Sulfonamide Allergy Unknown Hives Verified 06/18/19 10:48 Antibiotics) vancomycin Allergy Unknown Hives Verified 06/18/19 10:48 Review of Systems Review of Systems: Narrative: CONSTITUTIONAL: Denies fever, chills, or sweats. EYES: Denies visual changes, redness, or discharge. ENT: Denies rhinorrhea, congestion, sore throat, or otalgia. CARDIOVASCULAR: Denies chest pain, palpitations, or edema. RESPIRATORY: Denies cough or dyspnea. GASTROINTESTINAL: Denies abdominal pain, nausea, vomiting, or diarrhea. GENITOURINARY: Denies dysuria or hematuria. SKIN: Reports abscess to left breast Denies rash or itching. MUSCULOSKELETAL: Denies back pain, joint pain, or myalgia. NEUROLOGIC: Denies headache, numbness, dizziness, or weakness. PSYCHIATRIC: Denies anxiety or depression. [facility] Past Medical History Medical History Anemia Prior to hysterectomy Anxiety Asthma Depression Ganglion cyst lt foot GERD (gastroesophageal reflux disease) Hyperlipidemia Polycystic ovaries Restless leg syndrome Spinal stenosis Type 2 diabetes mellitus Surgical History Surgical History H/O arthroscopy lt knee H/O laparoscopy Multiple in her teenage years due to dysfunctional pit river
[2019-06-18 11:51] LABS: Basophils Percent Auto 0.3 % (0.2-1.2); Eosinophils Absolute Auto 0.1 K/mm3 (0-0.3); Eosinophils Percent Auto 0.7 % (0-4.4); Hematocrit 41.8 % (37.0-47.0); Hemoglobin 14.1 g/dL (12.0-15.0); Immature Granulocyte Absolute 0.07 K/mm3 (0.00-0.031); Immature Granulocyte Percent A 0.6 % (0-0.5); Lymphocytes Percent Auto 19.7 % (18.3-44.2); Mean Corpuscular HGB Conc 33.7 g/dl (32-36); Mean Corpuscular Hemoglobin 30.3 pg (26-34); Mean Corpuscular Volume 89.9 fl (80-100); Mean Platelet Volume 10.1 fl (7.4-10.4); Monocytes Absolute Auto 0.6 K/mm3 (0.1-0.6); Neutrophils Absolute Auto 8.2 K/mm3 (1.3-6.7); Neutrophils Percent Auto 73.7 % (45.5-73.1); Platelet Count Result 274 k/mm3 (150-375); Red Blood Count 4.65 M/mm3 (4.2-5.4); Red Cell Distribution Width 13.2 % (11.5-14.5); White Blood Count 11.2 K/mm3 (4.5-10.0)
[2019-06-18 11:56] LABS: Alanine Aminotransferase 47 U/L (4-35); Albumin Level 3.9 g/dL (3.5-5.1); Alkaline Phosphatase 147 U/L (38-126); Aspartate Amino Transferase 67 U/L (14-36); Bilirubin,Total 0.5 mg/dL (0.2-1.3); Blood Urea Nitrogen 5 mg/dL (7-17); Calcium 9.4 mg/dL (8.4-10.2); Carbon Dioxide 32 mmol/L (22-30); Chloride 96 mmol/L (98-107); Estimated CRCL calculation 183 ml/min; Estimated Glomerular Filt Rate > 60; Glucose 308 mg/dL (65-105); Potassium 4.5 mmol/L (3.4-5.0); Sodium 136 mmol/L (137-145)
--- NOTE | 2019-06-18 12:49 | PM.CNGS ---
Assessment and Plan Assessment and plan (1) Abscess of left breast: Code(s): N61.1 - Abscess of the breast and nipple Status: Acute Assessment and Plan: will take to OR for incision and drainage today, U/S reviewed, IV abx (2) Type 2 diabetes mellitus: Qualifiers: Diabetes mellitus exterminator helper insulin use: with exterminator helper use Diabetes mellitus complication status: with skin complications Diabetes mellitus complication detail: with other skin complication Qualified Code(s): E11.628 - Type 2 diabetes mellitus with other skin complications; Z79.4 - termite control representative (current) use of insulin Code(s): E11.9 - Type 2 diabetes mellitus without complications Status: Acute Assessment and Plan: management per primary team History of Present Illness Consult details Consult date: 06/18/19 Reason for consult: other (left breast abscess) Narrative: Pt presents to ED c/o worsening L breast pain, swelling over last few days. Pt reports she had L breast swelling beginning about 3 wks ago. Pt admitted in hospital and treated c IV abx for about a wk. Pt reports area was much improved and dc'd home c IV abx. Pt then reports worsening and seen as outpt. Pt subsequently underwent U/S guided drainage as outpt. Pt reports minimal amount aspirated at that time. Pt reports cont worsening over last few days and now told to come back to ED. Pt reports subjective f/c, weakness. Review of Systems Constitutional: Constitutional: Denies anorexia, Reports chills, Reports fatigue, Denies headache(s), Denies malaise, Reports night sweats, Denies poor appetite, Reports weakness, Denies weight gain and Denies weight loss Eyes: Eyes: Denies loss of vision ENT: Denies dysphagia, Denies headache(s), Denies hearing loss and Denies sore throat Cardiovascular: Cardiovascular: Denies chest pain, Denies syncope, Denies irregular heart rhythm, Denies leg edema and Denies dyspnea Respiratory: Respiratory: Denies cough and Denies dyspnea Gastrointestinal: Gastrointestinal: Denies abdominal pain, Denies bloating, Denies change in bowel habits, Denies change in stool character, Denies constipation, Denies dysphagia, Denies heartburn, Denies diarrhea, Denies nausea and Denies vomiting Genitourinary: Genitourinary: Denies urinary frequency, Denies dysuria and Denies urinary urgency Musculoskeletal: Musculoskeletal: Denies myalgias, Denies arthralgias and Denies muscle cramps Integumentary/Breasts: Skin/Breast: Reports breast pain, Reports breast mass, Denies non-healing lesions, Reports erythema and Denies rash Neurologic: Denies syncope, Denies headache(s) and Denies loss of vision Endocrine: Endocrine: Denies change in body appearance and Denies fatigue Hematologic/Lymphatic: Hematologic/Lymphatic: Denies easy bleeding, Denies easy bruising and Denies lymphadenopathy [facility] Past Medical History Medical History Anemia Prior to hysterectomy Anxiety Asthma Depression Ganglion cyst lt foot GERD (gastroesophageal reflux disease) Hyperlipidemia Polycystic ovaries Restless leg syndrome Spinal stenosis Type 2 diabetes mellitus Surgical History Surgical History H/O arthroscopy lt knee H/O laparoscopy Multiple in her teenage years due to dysfunctional uterine bleeding. H/O tubal ligation H/O: hysterectomy Due to dysfunctional uterine bleeding Hx of appendectomy Hx of cholecystectomy Hx of tonsillectomy Family History Family History Mother Hypertension Social History Social History Social History: Patient is an only child. She does not know her father's history. Her son has a drug problem. Her daughter is obese. Primary care physician: Dr. Gil Berg Smoking packs per day: 1 Smoking
--- NOTE | 2019-06-18 13:17 | WPDANESEPPF ---
Anes - Initial Pre Proc Eval Procedure: Operation Date: 06/18/19 13:00 Proposed Procedures p Incision and Drainage of Left Breast Abscess(Left) - Marjan Burleson MD Date/Time: 06/18/19 13:17 Surgeon: Marjan Burleson MD Pre Op Diagnosis: left breast infection Patient Data Age: 48 Gender: F Height: 5 ft 5 in Weight: 125 kg Last Vital Signs Temp 37.1 C 06/18/19 10:45 Pulse 97 06/18/19 10:45 Resp 18 06/18/19 10:45 BP 153/84 H 06/18/19 10:45 Pulse Ox 95 06/18/19 12:30 Allergies Allergy/AdvReac Type Severity Reaction Status Date / Time morphine Allergy Unknown Other Verified 06/18/19 10:48 Sulfa (Sulfonamide Allergy Unknown Hives Verified 06/18/19 10:48 Antibiotics) vancomycin Allergy Unknown Hives Verified 06/18/19 10:48 Home Medications Medication Instructions Recorded Confirmed Type Januvia 100 mg PO HS 01/07/19 05/29/19 History Requip 2 mg PO BID 01/07/19 05/29/19 History buspirone 30 mg PO BID 01/07/19 05/29/19 History desipramine 50 mg PO HS 01/07/19 05/29/19 History escitalopram oxalate [Lexapro] 10 mg PO DAILY 01/07/19 05/29/19 History glipizide 10 mg PO BID 01/07/19 05/29/19 History metformin 1,000 mg PO BID 01/07/19 05/29/19 History oxycodone-acetaminophen [Percocet] 1 tablet PO Q6H PRN 01/07/19 05/29/19 History pravastatin 40 mg PO HS 01/07/19 05/29/19 History Ambien 5 mg/day PO HS 05/02/19 05/29/19 History cyclobenzaprine 10 mg PO BID 05/02/19 05/29/19 History famotidine [Pepcid] 20 mg PO HS 05/02/19 05/29/19 History Basaglar KwikPen U-100 Insulin 65 unit SUBCUT HS 05/04/19 05/29/19 History Basaglar KwikPen U-100 Insulin 70 unit SUBCUT QAM 05/04/19 05/29/19 History clindamycin HCl 300 mg PO Q8H 10 Days #30 cap 06/13/19 Rx oxycodone-acetaminophen 1 tablet PO Q6H PRN #14 tablet 06/13/19 Rx Laboratory Tests 06/18/19 06/18/19 11:33 11:33 WBC 11.2 K/mm3 H K/mm3 (4.5-10.0) RBC 4.65 M/mm3 M/mm3 (4.2-5.4) Hgb 14.1 g/dL g/dL (12.0-15.0) Hct 41.8 % % (37.0-47.0) MCV 89.9 fl fl (80-100) MCH 30.3 pg pg (26-34) MCHC 33.7 g/dl g/dl (32-36) RDW 13.2 % % (11.5-14.5) Plt Count 274 k/mm3 k/mm3 (150-375) MPV 10.1 fl fl (7.4-10.4) Immature Gran % (Auto) 0.6 % H % (0-0.5) Neut % (Auto) 73.7 % H % (45.5-73.1) Lymph % (Auto) 19.7 % % (18.3-44.2) [place] % (Auto) 5.0 % % (2.6-8.5) Eos % (Auto) 0.7 % % (0-4.4) Baso % (Auto) 0.3 % % (0.2-1.2) Lymph # (Auto) 2.20 K/mm3 K/mm3 (0.9-3.2) [place] # (Auto) 0.6 K/mm3 K/mm3 (0.1-0.6) Eos # (Auto) 0.1 K/mm3 K/mm3 (0-0.3) Baso # (Auto) 0.0 K/mm3 K/mm3 (0.0-0.1) Abs Immat Gran (auto) 0.07 K/mm3 H K/mm3 (0.00-0.031) Absolute Neuts (auto) 8.2 K/mm3 H K/mm3 (1.3-6.7) Absolute Nucleated RBC 0.0 K/mm3 K/mm3 (0.0-0.012) Nucleated RBC % 0.0 % % (0.0-0.2) Sodium 136 mmol/L L mmol/L (137-145) Potassium 4.5 mmol/L mmol/L (3.4-5.0) Chloride 96 mmol/L L mmol/L (98-107) Carbon Dioxide 32 mmol/L H mmol/L (22-30) BUN 5 mg/dL L mg/dL (7-17) Creatinine 0.40 mg/dL L mg/dL (0.7-1.0) Estim Creat Clear Calc 183 ml/min ml/min Estimated GFR > 60 (59 - ) Glucose 308 mg/dL H mg/dL (65-105) Calcium 9.4 mg/dL mg/dL (8.4-10.2) Total Bilirubin 0.5 mg/dL mg/dL (0.2-1.3) AST 67 U/L H U/L (14-36) ALT 47 U/L H U/L (4-35) Alkaline Phosphatase 147 U/L H U/L (38-126) Total Protein 7.0 g/dL g/dL (6.3-8.2) Albumin 3.9 g/dL g/dL (3.5-5.1) Patient hx anesthesia problems: none Family hx anesthesia problems: none PMFSH Past Medical History Medical History Anemia Prior to hysterectomy Anxiety Asthma Depression Ganglion cyst lt foot GERD (gastroesophageal reflux disease) Hyperli
[2019-06-18 13:22] LABS: Glucose Point of Care 267 (65-105)
[2019-06-18] MEDS: LACTATED RINGERS 1,000 ML 30 ML IV CONT ×2 (13:26→15:00)
[2019-06-18] MEDS: INSULIN HUMAN REGULAR (*BKC) 100 UNITS/ML 8 UNITS SUB-Q (13:41)
[2019-06-18] MEDS: BUPIVACAINE/EPINEPHRINE 0.5% 30 ML VIAL 10 ML INFILTRATE (14:02)
[2019-06-18] MEDS: ceFAZolin SODIUM 1 GM VIAL 2 GM IV PUSH (14:04)
--- NOTE | 2019-06-18 14:09 | PM.PROC ---
Procedure Note - Detailed Date of procedure: 06/18/19 Pre-op diagnosis: left breast infection left breast abscess Post-op diagnosis: same Procedure performed: complex incision and drainage left breast abscess measuring approximately [id number] cm Description of procedure: Patient was brought into the operating room and placed in the supine position. After adequate induction of general anesthesia, the patient is prepped and draped in normal sterile fashion. A time-out was then performed to verify the patient's identity, as well as the procedure being performed. I began by localizing the area in and around the left breast abscess. I then made a incision with a 10 blade scalpel over the most fluctuant area of this abscess. I then took the incision through the dermis into the subcutaneous tissue. At this point, I was able to get into the abscess cavity. A large amount of pus was noted. I then obtained sterile culture. I then used a hemostat to further bluntly dissect this cavity. I broke up further loculations with a hemostat in more purulence drainage was noted. Once the cavity was completely explored, widely open and draining, I washed this out with sterile saline. I then packed the cavity with half-inch iodoform packing to keep the cavity open and draining. The measurements of the cavity were prepped 12 x 10 x 8 cm. Sterile dressing was then placed on the wound. The patient tolerated the procedure well and was extubated in the operating room postoperatively. She will be sent to the PACU in stable condition. Anesthesia: GETA Surgeon: Marjan Burleson MD Estimated blood loss (mL): 5 Drains: No Packing: Yes Pathology: other (cultures) Complications: No immediate complications Condition: stable Disposition: PACU Findings: abscess cavity c large amount of pus
[2019-06-18 14:28] LABS: Glucose Point of Care 239 (65-105)
[2019-06-18] MEDS: metFORMIN HCL 500 MG TABLET 1000 MG PO (17:38)
[2019-06-18] MEDS: glipiZIDE 5 MG TABLET 10 MG PO (17:38)
[2019-06-18] MEDS: CYCLOBENZAPRINE HCL 10 MG TABLET PO (17:38)
--- NOTE | 2019-06-18 18:05 | ADMGEN ---
This patient, Kristi Nicole, was admitted to [facility] Surg Room 319-01 @[id number]. Patient/family oriented to hospital policies and general routines including ID bracelet, bed and alarms, visiting hours, pain management, procedures, bathroom and other care routines, personal items, smoking policy, room service/diet, and visiting hours. Valuables list has been completed. Information on how to activate the Rapid Response Team has been discussed. Patient/Family are encouraged to report perceived risks to care and to ask questions if they do not understand what they are told or what they should do.
[2019-06-18 18:09] LABS: Glucose Point of Care 321 (65-105)
[2019-06-18] MEDS: hydrOXYzine HCL 25 MG TABLET PO (18:38)
[2019-06-18] MEDS: HYDROMORPHONE HCL 1 MG/ML INJ 0.5 MG IV PUSH (19:26)
--- NOTE | 2019-06-18 19:47 | PM.IMHP ---
H&P: HPI History of Present Illness Chief complaint: left breast infection Narrative: Kristi Nicole is a 48 year old female who was admitted to the hospital last month. The patient was admitted on 05/04/2019 and discharged on 05/07/2019. The patient was having redness and swelling to her left breast. She was started on doxycycline and imipenem. The patient was then discharged on oral doxycycline. And she followed up with the surgeon outpatient. Her A1c was noted to be 10.3 at that time. On 04/30/2019 the patient was on Bactrim when she was seen by her public relations studies director. Blood cultures were found to be negative. The patient came into the emergency room today a recurrent left breast redness. The patient's left nipple was inverted. She is instructed to come to the emergency room. The patient was seen by surgery and taken for I&D of the left breast. White count 11.2. Surgery has restarted her home medications. We are asked to be the admitting and I spoke with my collaborative who agreed. Date of service 06/18/2019 Review of Systems Review of Systems: All systems reviewed & are unremarkable except as noted in HPI and below Constitutional: Constitutional: Reports as per HPI and Reports no additional constitutional complaints Eyes: Eyes: Reports as per HPI and Reports no additional eye complaints ENT: Reports system reviewed and no additional complaints, except as documented and Reports Normal hearing present Cardiovascular: Cardiovascular: Reports no additional cardiovascular complaints Respiratory: Respiratory: Reports no additional respiratory complaints and Reports no additional respiratory complaints Gastrointestinal: Gastrointestinal: Reports as per HPI and Reports no additional gastrointestinal complaints Musculoskeletal: Musculoskeletal: Reports no additional musculoskeletal complaints Integumentary/Breasts: Skin/Breast: Reports system reviewed and no additional complaints, except as docu and Reports as per HPI Neurologic: Reports system reviewed and no additional complaints, except as documented, Reports as per HPI and Reports Normal hearing present Psychiatric: Psychiatric: Reports no additional psychiatric complaints and Reports as per HPI Endocrine: Endocrine: Reports no additional endocrine complaints Hematologic/Lymphatic: Hematologic/Lymphatic: Reports no additional hematologic/lymphatic complaints Allergic/Immunologic: Allergic/Immunologic: Reports no additional allergic/immunologic complaints [facility] Past Medical History Medical History (Updated 06/18/19 @ 20:01 by Ligia Gannon NP) Anemia Prior to hysterectomy Anxiety Asthma Depression Ganglion cyst lt foot GERD (gastroesophageal reflux disease) Hyperlipidemia Polycystic ovaries Restless leg syndrome Spinal stenosis Type 2 diabetes mellitus Surgical History Surgical History (Updated 06/18/19 @ 20:01 by Ligia Gannon NP) H/O arthroscopy lt knee H/O laparoscopy Multiple in her teenage years due to dysfunctional uterine bleeding. H/O tubal ligation H/O: hysterectomy Due to dysfunctional uterine bleeding Hx of appendectomy Hx of cholecystectomy Hx of tonsillectomy Family History Family History (Updated 06/18/19 @ 20:04 by Ligia Gannon NP) Mother Hypertension Depression Anxiety Father Unknown family medical history Social History Social History (Updated 06/18/19 @ 20:05 by Ligia Gannon NP) Social History: The patient is applying for disability and awaiting for final decision. She lives with her boyfriend and takes care of his mother. She also lives with his sister and child. She does not have a durable power health care attorney but desires to be a full code. Patient is an only child. She does not know her father's history. Her son has a drug problem. Her daughter is obese. Primary care physician: Dr. Gil Berg Smoking packs per day: 1.5 Smoking cigarettes per day: 30.0 Years smoked: 35 Smoking p
[2019-06-18] MEDS: DESIPRAMINE HCL 25 MG TABLET 50 MG PO (21:15)
[2019-06-18] MEDS: ZOLPIDEM TARTRATE 5 MG TABLET PO (21:15)
[2019-06-18] MEDS: PRAVASTATIN SODIUM 20 MG TABLET 40 MG PO (21:15)
[2019-06-18] MEDS: FAMOTIDINE 20 MG TABLET PO (21:15)
[2019-06-18] MEDS: LORAZEPAM 0.5 MG TABLET PO (21:16)
[2019-06-18] MEDS: busPIRone HCL 10 MG TABLET 30 MG PO (21:16)
[2019-06-18] MEDS: INSULIN GLARGINE (*BKC) 100 UNITS/ML 65 UNITS SUB-Q (21:24)
[2019-06-18 21:32] LABS: Glucose Point of Care 288 (65-105)
[2019-06-19] MEDS: HYDROMORPHONE HCL 1 MG/ML INJ 0.5 MG IV PUSH ×2 (01:30→04:14)
[2019-06-19 02:00] VITALS: BP 103/62; PULSE 76; RESP 16; TEMP 36.7; O2SAT 96
[2019-06-19 06:00] VITALS: BP 107/64; PULSE 77; RESP 20; TEMP 36.8; O2SAT 95
[2019-06-19 06:05] LABS: Basophils Absolute Auto 0.1 K/mm3 (0.0-0.1); Basophils Percent Auto 0.3 % (0.2-1.2); Eosinophils Percent Auto 0.2 % (0-4.4); Hematocrit 40.1 % (37.0-47.0); Hemoglobin 13.3 g/dL (12.0-15.0); Immature Granulocyte Absolute 0.11 K/mm3 (0.00-0.031); Immature Granulocyte Percent A 0.8 % (0-0.5); Lymphocytes Absolute Auto 2.11 K/mm3 (0.9-3.2); Lymphocytes Percent Auto 14.4 % (18.3-44.2); Mean Corpuscular HGB Conc 33.2 g/dl (32-36); Mean Corpuscular Hemoglobin 30.4 pg (26-34); Mean Corpuscular Volume 91.6 fl (80-100); Mean Platelet Volume 10.4 fl (7.4-10.4); Monocytes Absolute Auto 0.6 K/mm3 (0.1-0.6); Monocytes Percent Auto 4.4 % (2.6-8.5); Neutrophils Absolute Auto 11.7 K/mm3 (1.3-6.7); Neutrophils Percent Auto 79.9 % (45.5-73.1); Platelet Count Result 300 k/mm3 (150-375); Red Blood Count 4.38 M/mm3 (4.2-5.4); Red Cell Distribution Width 13.3 % (11.5-14.5); White Blood Count 14.6 K/mm3 (4.5-10.0)
[2019-06-19 06:17] LABS: Lactic Acid 1.3 mmol/L (0.7-2.1)
[2019-06-19 06:23] LABS: Alanine Aminotransferase 48 U/L (4-35); Albumin Level 3.6 g/dL (3.5-5.1); Alkaline Phosphatase 130 U/L (38-126); Aspartate Amino Transferase 73 U/L (14-36); Bilirubin,Total 0.3 mg/dL (0.2-1.3); Blood Urea Nitrogen 5 mg/dL (7-17); Calcium 9.1 mg/dL (8.4-10.2); Carbon Dioxide 32 mmol/L (22-30); Chloride 98 mmol/L (98-107); Estimated CRCL calculation 222 ml/min; Estimated Glomerular Filt Rate > 60; Glucose 164 mg/dL (65-105); Magnesium 1.7 mg/dL (1.6-2.3); Potassium 4.1 mmol/L (3.4-5.0); Sodium 133 mmol/L (137-145)
[2019-06-19 07:12] LABS: Thyroid Stimulating Hormone Reflex 0.444 uIU/mL (0.465-4.68)
[2019-06-19 07:38] LABS: Free T4 Free Thyroxine Reflex 1.56 ng/dL (0.78-2.19)
[2019-06-19] MEDS: CYCLOBENZAPRINE HCL 10 MG TABLET PO (07:43)
[2019-06-19] MEDS: THERAPEUTIC MULTIVITAMINS/MINERALS TAB (*BKC) 1 TABLET PO (07:43)
[2019-06-19] MEDS: metFORMIN HCL 500 MG TABLET 1000 MG PO (07:43)
[2019-06-19] MEDS: ESCITALOPRAM OXALATE 10 MG TABLET PO (07:43)
[2019-06-19] MEDS: busPIRone HCL 10 MG TABLET 30 MG PO (07:44)
[2019-06-19] MEDS: glipiZIDE 5 MG TABLET 10 MG PO (07:44)
[2019-06-19] MEDS: INSULIN GLARGINE (*BKC) 100 UNITS/ML 70 UNITS SUB-Q (07:52)
[2019-06-19 08:22] LABS: Total Triiodothyronine (T3) 1.11 NG/ML (0.97-1.69)
[2019-06-19 09:33] LABS: Glucose Point of Care 136 (65-105)
--- NOTE | 2019-06-19 09:41 | PM.PNGS ---
Progress Note: A&P Assessment and Plan (1) Breast abscess: Code(s): N61.1 - Abscess of the breast and nipple Status: Acute Assessment and Plan: s/p I and D, instructions for local wound care, cont abx, f/u 2 wks Subjective Subjective Date/Time Seen: 06/19/19 09:41 feels much better, decreased pressure, pain Review of Systems Constitutional: Constitutional: Denies chills, Denies fatigue, Denies lethargy and Denies weakness Cardiovascular: Cardiovascular: Denies chest pain and Denies palpitations Respiratory: Respiratory: Denies dyspnea Gastrointestinal: Gastrointestinal: Denies abdominal pain, Denies nausea and Denies vomiting Exam Const: General: no acute distress Chest: Other: L breast abscess - well drained, packing removed, decreased cellulitis, induration Resp: Auscultation: clear to auscultation bilaterally Cardio: Rate: regular rate Rhythm: regular rhythm Objective Data Vital Signs Vital Signs: Vital Signs - 24 hr 06/18/19 10:45 06/18/19 11:32 06/18/19 12:30 Temperature 37.1 C Pulse Rate 97 Respiratory Rate 18 Blood Pressure 153/84 H Pulse Oximetry 98 93 95 06/18/19 13:10 06/18/19 14:14 06/18/19 14:15 Temperature 36.2 C L 36.3 C L Pulse Rate 87 100 100 Respiratory Rate 18 18 18 Blood Pressure 115/78 123/75 109/62 Pulse Oximetry 99 100 100 06/18/19 14:30 06/18/19 14:45 06/18/19 15:00 Temperature Pulse Rate 98 96 91 Respiratory Rate 18 15 20 Blood Pressure 104/53 L 111/66 114/63 Pulse Oximetry 100 92 96 06/18/19 15:15 06/18/19 15:30 06/18/19 15:45 Temperature 36.4 C Pulse Rate 87 82 83 Respiratory Rate 13 14 16 Blood Pressure 107/65 101/60 110/92 H Pulse Oximetry 96 94 97 06/18/19 16:00 06/18/19 16:30 06/18/19 17:30 Temperature Pulse Rate 81 74 80 Respiratory Rate 16 16 16 Blood Pressure 120/71 120/68 118/67 Pulse Oximetry 98 98 98 06/18/19 22:00 06/19/19 02:00 06/19/19 06:00 Temperature 36.9 C 36.7 C 36.8 C Pulse Rate 78 76 77 Respiratory Rate 20 16 20 Blood Pressure 110/72 103/62 107/64 Pulse Oximetry 96 96 95 Intake/Output Intake/Output: Intake & Output 06/16/19 06/17/19 06/18/19 06/19/19 23:59 23:59 23:59 23:59 Intake Total 1690 700 Output Total 800 2000 Balance 890 -1300 Meds/Results Medications: Active Medications Generic Name Dose Route Start Last Admin Trade Name Freq PRN Reason Stop Dose Admin Buspirone HCl 30 mg 06/18/19 21:00 06/19/19 07:44 Buspar PO 30 mg Q12HR DAKOTA Administration Cyclobenzaprine HCl 10 mg 06/18/19 17:00 06/19/19 07:43 Flexeril PO 10 mg BID DAKOTA Administration Desipramine HCl 50 mg 06/18/19 21:00 06/18/19 21:15 Desipramine Hcl PO 50 mg HS DAKOTA Administration Dextrose 12.5 gm 06/18/19 19:57 Dextrose 50% Syringe IV PUSH PRN PRN Hypoglycemia Protocol Escitalopram Oxalate 10 mg 06/19/19 09:00 06/19/19 07:43 Lexapro PO 10 mg DAILY DAKOTA Administration Famotidine 20 mg 06/18/19 21:00 06/18/19 21:15 Pepcid PO 20 mg HS DAKOTA Administration Glipizide 10 mg 06/18/19 17:00 06/19/19 07:44 Glucotrol PO 10 mg BIDWM DAKOTA Administration Glucagon 1 mg 06/18/19 19:57 Glucagon For Inj IM PRN PRN Hypoglycemia Protocol Glucose 15 gm 06/18/19 19:57 Glutose 15 PO PRN PRN Hypoglycemia Protocol Hydromorphone HCl 0.5 mg 06/18/19 18:31 06/19/19 04:14 Dilaudid Inj IV PUSH 0.5 mg Q2H PRN Administration Pain Rated 7-10 Cefazolin Sodium 500 mg/ 50 mls @ 100 mls/hr 06/18/19 22:00 06/19/19 06:00 Dextrose IVPB Infused Q8HR DAKOTA Infusion Dextrose 1,000 mls @ 100 mls/hr 06/18/19 19:57 Dextrose 5% 1,000 Ml IVPB PRN PRN Hypoglycemia Protocol Insulin Aspart 2 - 5 units 06/19/19 08:00 06/19/19 07:41 Novolog SUB-Q Not Given TIDWM DAKOTA Protocol Insulin Glargine 70 units 06/19/19 09:00 06/19/19 07:52 Lantu
[2019-06-19 11:44] LABS: Glucose Point of Care 209 (65-105)
[2019-06-19] MEDS: INSULIN ASPART (*BKC) 100 UNITS/ML SUB-Q (12:11)
--- NOTE | 2019-06-19 12:59 | PM.DS ---
DS: Diagnosis Admitting Diagnosis Admitting Diagnosis: Abscess of the breast and nipple Discharge Diagnosis (1) Breast abscess: Code(s): N61.1 - Abscess of the breast and nipple Status: Acute Assessment and Plan: Care as per surgery. Postop care per surgery. Antibiotics were started per surgery. Patient is started on Ancef. She had been on oral doxycycline at home. Prior to that she was on imipenem. Her blood cultures were negative last time. Her wound showed Staphylococcus aureus which could be a contaminant this is a normal back area on the surface of the skin. (2) Type 2 diabetes mellitus: Qualifiers: Diabetes mellitus manager long term care insulin use: with residential use Diabetes mellitus complication status: with skin complications Diabetes mellitus complication detail: with other skin complication Qualified Code(s): E11.628 - Type 2 diabetes mellitus with other skin complications; Z79.4 - exterminator termite (current) use of insulin Code(s): E11.9 - Type 2 diabetes mellitus without complications Status: Acute Assessment and Plan: She has routine insulin and her blood sugars are out of control. Her last A1c was over 10. I added sliding scale insulin as well as her routine insulin. Surgery continued with her glipizide Januvia metformin. However with the metformin the patient could easily get lactic acidosis. Please monitor BMP closely. (3) Anxiety: Code(s): F41.9 - Anxiety disorder, unspecified Status: Chronic Assessment and Plan: Continue with her BuSpar. I also gave her 1 time dose of cataracts earlier. Her blood pressure was low and I did want to give her a p.r.n. Ativan at the time. She has Ativan scheduled for nighttime. (4) Hyperlipidemia: Code(s): E78.5 - Hyperlipidemia, unspecified Status: Chronic Assessment and Plan: Continue with pravastatin. (5) Restless leg syndrome: Code(s): G25.81 - Restless legs syndrome Status: Chronic Assessment and Plan: Continue Requip DS: Summary Hospital Course Reason for hospitalization: Kristi Nicole is a 48 year old female who was admitted to the hospital last month. The patient was admitted on 05/04/2019 and discharged on 05/07/2019. The patient was having redness and swelling to her left breast. She was started on doxycycline and imipenem. The patient was then discharged on oral doxycycline. And she followed up with the surgeon outpatient. Her A1c was noted to be 10.3 at that time. On 04/30/2019 the patient was on Bactrim when she was seen by her special education instructor. Blood cultures were found to be negative. The patient came into the emergency room today a recurrent left breast redness. The patient's left nipple was inverted. She is instructed to come to the emergency room. The patient was seen by surgery and taken for I&D of the left breast. White count 11.2. Surgery has restarted her home medications. We are asked to be the admitting and I spoke with my collaborative who agreed. Date of service 06/18/2019 Hospital Course: Care as per surgery. Postop care per surgery. Antibiotics were started per surgery. Patient is started on Ancef. She had been on oral doxycycline at home. Prior to that she was on imipenem. Her blood cultures were negative last time. Her wound showed Staphylococcus aureus which could be a contaminant this is a normal back area on the surface of the skin. Patient is clinically stable will discharge home today on Keflex and will follow up as an outpatient. Time Spent with Patient Time attestation: Total time spent providing and/or coordinating discharge services: Exam Const: General: comfortable and no acute distress HENMT: General nose exam: Normal nares present Eyes: General: appearance normal, both eyes and all related structures Sclera: sclerae normal Neck: Neck: supple Resp: Effort & Inspection: normal respiratory effort Auscultation: clear to auscult
== END 2019-06-19 13:23 | disposition home or self-care (01) ==
LOC: ANHED 12:49 → ANHSURGERY 12:50 → ANH3MEDSUR 16:30
PROVIDERS: Nurse Practitioner; Physician Assistant; Surgery; Admitting Provider Internal Medicine; Emergency Provider Emergency Medicine; PCP Family Medicine; Visit Provider Family Medicine
PROC: (CPT 10061; principal; 2019-06-18 13:00)
DX: N61.1 Abscess of the breast and nipple (principal); E11.628 Type 2 diabetes mellitus with other skin complications; F17.210 Nicotine dependence, cigarettes, uncomplicated; E66.01 Morbid (severe) obesity due to excess calories; Z68.42 Body mass index [BMI] 45.0-49.9, adult; E78.5 Hyperlipidemia, unspecified; Z79.82 Long term (current) use of aspirin; Z79.899 Other long term (current) drug therapy; Z88.2 Allergy status to sulfonamides; Z88.3 Allergy status to other anti-infective agents
CPT/HCPCS: 10061; 36415; 76642; 80053; 83605; 83735; 84439; 84443; 84480; 85025; 87040; 87070; 87075; 87147; 87186; 87205; 96361; 96374; 96375; 99285; A9270; G0378; G0379; J0690; J1100; J1170; J1815; J2001; J2250; J2405; J2704; J3010; J7120

== ENCOUNTER 2019-09-04 17:40 | Emergency (ER) | payer MEDICARE, MEDICAID, SELFPAY ==
[2019-09-04 17:43] VITALS: BP 137/82; PULSE 107; RESP 16; TEMP 36.5; O2SAT 96
[2019-09-04 18:07] VITALS: PULSE 98; RESP 17; O2SAT 100
--- NOTE | 2019-09-04 19:49 | ED.SKABFB ---
HPI - Skin/Abscess/Foreign Bdy General Chief complaint: Skin/Abscess/Foreign Body Stated complaint: boil on vagina Time Seen by Provider: 09/04/19 18:42 Source: patient Mode of arrival: ambulatory Limitations: no limitations History of Present Illness HPI narrative: This is a 48 year old female that presents to the ER for cyst on her labia x 2 days. Reports it has grown. Reports some clear yellow drainage from the area. Denies fevers. Related Data Home Medications Medication Instructions Recorded Confirmed Januvia 100 mg PO HS 01/07/19 08/03/19 Requip 2 mg PO BID 01/07/19 08/03/19 buspirone 30 mg PO BID 01/07/19 08/03/19 desipramine 50 mg PO HS 01/07/19 08/03/19 escitalopram oxalate [Lexapro] 10 mg PO DAILY 01/07/19 08/03/19 glipizide 10 mg PO BID 01/07/19 08/03/19 metformin 1,000 mg PO BID 01/07/19 08/03/19 oxycodone-acetaminophen [Percocet] 1 tablet PO Q6H PRN 01/07/19 08/03/19 pravastatin 40 mg PO HS 01/07/19 08/03/19 cyclobenzaprine 10 mg PO BID 05/02/19 08/03/19 famotidine [Pepcid] 20 mg PO HS 05/02/19 08/03/19 Basaglar KwikPen U-100 Insulin 65 unit SUBCUT HS 05/04/19 08/03/19 Basaglar KwikPen U-100 Insulin 70 unit SUBCUT [facility] 05/04/19 08/03/19 Centrum Silver Women 1 tablet PO DAILY 06/18/19 08/03/19 Tradjenta 5 mg PO DAILY 06/18/19 08/03/19 lorazepam 0.5 mg tablet 1 mg PO DAILY PRN tablet 06/29/19 08/03/19 lorazepam 0.5 mg tablet 1 mg PO HS tablet 06/29/19 08/03/19 Allergies Allergy/AdvReac Type Severity Reaction Status Date / Time morphine Allergy Unknown Other Verified 09/04/19 18:09 Sulfa (Sulfonamide Allergy Unknown Hives Verified 09/04/19 18:09 Antibiotics) vancomycin Allergy Unknown Hives Verified 09/04/19 18:09 Review of Systems Review of Systems: Narrative: CONSTITUTIONAL: Denies fever, chills SKIN: Reports cyst All systems reviewed & are unremarkable except as noted in HPI and below PMFSH Social History Social History Social History: The patient is applying for disability and awaiting for final decision. She lives with her boyfriend and takes care of his mother. She also lives with his sister and child. She does not have a durable power commercial attorney but desires to be a full code. Patient is an only child. She does not know her father's history. Her son has a drug problem. Her daughter is obese. Primary care physician: Dr. Gil Berg Smoking packs per day: 1.5 Smoking cigarettes per day: 30.0 Years smoked: 35 Smoking pack-years: 52.50 Smoking status: Current every day smoker Tobacco type: cigarettes Second hand tobacco smoke exposure: Yes Alcohol intake: never Substance use: former Substance use type: marijuana Additional occupation/education comments: On disability. Gender identity (if verbalized by the patient): Female Spiritual care concerns: No Agree to blood products: Yes Exam Narrative: Exam Narrative: GENERAL: Well-appearing, obese, and in no acute distress. HEAD: Normocephalic, atraumatic. EYES: EOMI. EXTREMITIES: Normal range of motion. No edema. SKIN: Warm, dry, no rash. NEURO: No focal deficits. Alert and oriented x3. PSYCH: Normal mood and affect FEMALE GENITAL: Left labia majora with small (2cm) cyst with mild surrounding redness Course Vital Signs Vital signs: Vital Signs Temperature 97.7 F 09/04/19 17:43 Pulse Rate 107 H 09/04/19 17:43 Respiratory Rate 16 09/04/19 17:43 Blood Pressure 137/82 09/04/19 17:43 Pulse Oximetry 96 09/04/19 17:43 Temperature 97.7 F 09/04/19 17:43 Pulse Rate 98 09/04/19 18:07 Respiratory Rate 17 09/04/19 18:07 Blood Pressure 137/82 09/04/19 17:43 Pulse Oximetry 100 09/04/19 18:07 Procedures Abscess I/D other: Date of Incision: 09/04/19 Time of Incision: 20:39 Side (if applicable): left Local Anesthetic: lidocaine 1% and with epi Amount of anesthesia used (mL): 2
== END 2019-09-04 22:21 | disposition home or self-care (01) ==
PROVIDERS: Emergency Provider Emergency Medicine; PCP Family Medicine
DX: N90.7 Vulvar cyst (principal); F17.210 Nicotine dependence, cigarettes, uncomplicated
CPT/HCPCS: 56405; 99283

== ENCOUNTER 2019-12-31 09:38 | Observation (INO) | payer MEDICARE, MEDICAID, SELFPAY ==
[2019-12-31] VITALS (9 sets, daily range): BP systolic 126–150; BP diastolic 65–92; PULSE 76–95; RESP 13–22; TEMP 35.6–36.8; O2SAT 95–100; BMI 43.1
--- NOTE | ~2019-12-31 | XR_ITS ---
EXAMINATION: XR chest 2V DATE: 12/31/2019 11:20 INDICATION: Chest pain. TECHNIQUE: Frontal and lateral views of the chest were obtained. COMPARISON: Chest single view 05/03/2019, CT abdomen and pelvis 03/06/2018 FINDINGS: The chest demonstrates clear lungs without pneumonia, pleural effusion, or pneumothorax. Th e heart size is normal. IMPRESSION: 1. No acute cardiopulmonary disease. Reviewed, dictated and finalized at location B. CHILL ADMINISTRATOR
--- NOTE | ~2019-12-31 | NM_ITS ---
EXAMINATION: NM brynn stress w perfusion DATE: 01/01/2020 09:46 INDICATION: Chest pain TECHNIQUE: Rest images were obtained following intravenous administration of 10 mCi Tc99m tetrofosmin (Myoview). The patient was infused intravenously with Lexiscan (Regadenoson). Then, 32.2 mCi Tc99m t etrofosmin (Myoview) was administered intravenously, and stress images were obtained. Data was recons tructed into short axis and horizontal and vertical long axis SPECT images. Gated SPECT images were a lso obtained. COMPARISON: None. FINDINGS: There is no definite reversible or fixed perfusion abnormality to suggest ischemia or infar ction. There is normal left ventricular chamber size, wall motion and ejection fraction. Left ventr icular ejection fraction measures >70%. IMPRESSION: 1. Normal myocardial perfusion at rest and during stress. 2. Left ventricular ejection fraction measuring >70%. Reviewed, dictated and finalized at location A. ENISHMENT SPECIALIST
--- NOTE | 2019-12-31 10:11 | ED.CHESTPAIN ---
HPI - Chest Pain General Chief Complaint: Chest Pain Stated Complaint: Chest Pain x4 Days Time Seen by Provider: 12/31/19 09:55 Source: patient Mode of arrival: ambulatory Limitations: no limitations History of Present Illness HPI narrative: Patient 49-year-old female complaining of midsternal pain, pressure, 7 out of 10, nonradiating started approximately 3 to 4 days ago. Patient denies any shortness of breath nausea or diaphoresis. Denies any abdominal pain. Related Data Home Medications Medication Instructions Recorded Confirmed Januvia 100 mg PO HS 01/07/19 08/03/19 Requip 2 mg PO BID 01/07/19 08/03/19 buspirone 30 mg PO BID 01/07/19 08/03/19 desipramine 50 mg PO HS 01/07/19 08/03/19 escitalopram oxalate [Lexapro] 10 mg PO DAILY 01/07/19 08/03/19 glipizide 10 mg PO BID 01/07/19 08/03/19 metformin 1,000 mg PO BID 01/07/19 08/03/19 oxycodone-acetaminophen [Percocet] 1 tablet PO Q6H PRN 01/07/19 08/03/19 pravastatin 40 mg PO HS 01/07/19 08/03/19 cyclobenzaprine 10 mg PO BID 05/02/19 08/03/19 famotidine [Pepcid] 20 mg PO HS 05/02/19 08/03/19 Basaglar KwikPen U-100 Insulin 65 unit SUBCUT HS 05/04/19 08/03/19 Basaglar KwikPen U-100 Insulin 70 unit SUBCUT [facility] 05/04/19 08/03/19 Centrum Silver Women 1 tablet PO DAILY 06/18/19 08/03/19 Tradjenta 5 mg PO DAILY 06/18/19 08/03/19 lorazepam 0.5 mg tablet 1 mg PO DAILY PRN tablet 06/29/19 08/03/19 lorazepam 0.5 mg tablet 1 mg PO HS tablet 06/29/19 08/03/19 Allergies Allergy/AdvReac Type Severity Reaction Status Date / Time morphine Allergy Unknown Other Verified 12/31/19 10:10 Sulfa (Sulfonamide Allergy Unknown Hives Verified 12/31/19 10:10 Antibiotics) vancomycin Allergy Unknown Hives Verified 12/31/19 10:10 Review of Systems Review of Systems: All systems reviewed & are unremarkable except as noted in HPI and below Constitutional: Constitutional: Denies body ache(s), Denies chills, Denies excessive sweating, Denies fatigue, Denies fever(s), Denies headache(s), Denies lethargy, Denies malaise, Denies weakness and Denies weight loss Eyes: Eyes: Denies blurry vision, Denies change in vision and Denies loss of vision ENT: Denies dizziness, Denies ear discharge, Denies headache(s), Denies lip swelling, Denies epistaxis, Denies nasal congestion, Denies neck pain, Denies throat swelling and Denies tongue swelling Cardiovascular: Cardiovascular: Denies diaphoresis, Denies rapid heart rate, Denies edema, Denies irregular heart rhythm, Denies lightheadedness, Denies palpitations, Denies dyspnea and Denies dyspnea on exertion Respiratory: Respiratory: Denies chest congestion, Denies cough, Denies hemoptysis, Denies dyspnea and Denies dyspnea on exertion Gastrointestinal: Gastrointestinal: Denies abdominal pain, Denies melena, Denies hematochezia, Denies diarrhea, Denies nausea, Denies vomiting and Denies hematemesis Musculoskeletal: Musculoskeletal: Denies abnormal gait, Denies deformity, Denies joint swelling, Denies limited range of motion, Denies neck pain and Denies numbness Neurologic: Denies Abnormal speech present, Denies abnormal gait, Denies confusion, Denies dizziness, Denies headache(s), Denies focal weakness, Denies loss of vision, Denies numbness, Denies Other visual disturbances, Denies Sensory deficit (Neuro) and Denies weakness Psychiatric: Psychiatric: Denies confusion, Denies depression, Denies auditory hallucinations, Denies homicidal ideation and Denies suicidal ideation Endocrine: Endocrine: Denies cold intolerance, Denies excessive sweating, Denies fatigue, Denies heat intolerance and Denies palpitations Hematologic/Lymphatic: Hematologic/Lymphatic: Denies easy bleeding and Denies easy bruising Allergic/Immunologic: Allergic/Immunologic: Denies lip swelling, Denies throat swelling and Denies tongue swelling PMFSH Past Medical History Medical History (Updated 12/31/19 @ 12:34 by Saji Dennis MD) Anemia Prior to hysterectomy Anxiety Asthma Depression Kun
[2019-12-31] MEDS: ASPIRIN 81 MG CHEWABLE TABLET 324 MG PO (10:17)
--- NOTE | 2019-12-31 10:45 | ECG_ITS ---
Measurements Intervals [place] Rate: 108 P: 70 WA: 154 QRS: 38 QRSD: 84 T: 47 QT: 329 QTc: 441 Interpretive Statements SINUS TACHYCARDIA LOW QRS VOLTAGE IN PRECORDIAL LEADS BASELINE ARTIFACT- I, III, AVL, AVF, V2, V4-V6 ABNORMAL ECG Electronically Signed On 12-31-2019 13:40:52 GARMENT LINER by Brent Hill D.O.
[2019-12-31 11:08] LABS: Basophils Percent Auto 0.4 % (0.2-1.2); Eosinophils Absolute Auto 0.1 K/mm3 (0-0.3); Eosinophils Percent Auto 0.5 % (0-4.4); Hematocrit 44.2 % (37.0-47.0); Hemoglobin 14.7 g/dL (12.0-15.0); Immature Granulocyte Absolute 0.08 K/mm3 (0.00-0.031); Immature Granulocyte Percent A 0.7 % (0-0.5); Lymphocytes Absolute Auto 1.91 K/mm3 (0.9-3.2); Mean Corpuscular HGB Conc 33.3 g/dl (32-36); Mean Corpuscular Hemoglobin 30.2 pg (26-34); Mean Corpuscular Volume 90.8 fl (80-100); Mean Platelet Volume 11.3 fl (7.4-10.4); Monocytes Absolute Auto 0.9 K/mm3 (0.1-0.6); Monocytes Percent Auto 7.6 % (2.6-8.5); Neutrophils Absolute Auto 8.3 K/mm3 (1.3-6.7); Neutrophils Percent Auto 73.8 % (45.5-73.1); Platelet Count Result 224 k/mm3 (150-375); Red Blood Count 4.87 M/mm3 (4.2-5.4); Red Cell Distribution Width 16.8 % (11.5-14.5); White Blood Count 11.3 K/mm3 (4.5-10.0)
[2019-12-31 11:17] LABS: INR 0.9; Prothrombin Time 12.9 Seconds (11.1-14.7)
[2019-12-31 11:18] LABS: Partial Thromboplastin Time 30.2 SECONDS (22.3-36.8)
[2019-12-31 11:21] LABS: Alanine Aminotransferase 104 U/L (4-35); Alkaline Phosphatase 171 U/L (38-126); Anion Gap 10 mmol/L (8-16); Aspartate Amino Transferase 119 U/L (14-36); Bilirubin,Total 0.6 mg/dL (0.2-1.3); Blood Urea Nitrogen 9 mg/dL (7-17); Calcium 9.5 mg/dL (8.4-10.2); Carbon Dioxide 27 mmol/L (22-30); Chloride 97 mmol/L (98-107); Estimated CRCL calculation 178 ml/min; Estimated Glomerular Filt Rate > 60; Glucose 357 mg/dL (65-105); Lipase 79 U/L (23-300); Sodium 134 mmol/L (137-145)
[2019-12-31 11:31] LABS: Troponin I < 0.012 ng/mL (0.000-0.034)
[2019-12-31 12:39] LABS: D Dimer 0.42 ug/mL (<0.48)
[2019-12-31] MEDS: LORazepam INJ (*CRX) 2 MG/ML VIAL 0.5 MG IV PUSH (13:19)
--- NOTE | 2019-12-31 13:38 | PC.NURSE ---
1332 Report received from JOHNNY Chamorro.
[2019-12-31 13:59] LABS: Troponin I < 0.012 ng/mL (0.000-0.034)
--- NOTE | 2019-12-31 14:25 | PM.IMHP ---
H&P: HPI History of Present Illness Date/Time: 12/31/19 14:25 Chief complaint: Chest Pain Narrative: Kristi Nicole is a 49 year old female who has a history of having anxiety and depression. The patient stated that she has been under a lot of stress recently. She stated that she is out of her lorazepam. The patient states that she is had some left breast discomfort and radiates over to the right side. It is reproducible under the left rib left upper quadrant. She has had no nausea vomiting or diarrhea no fever no chills. She is concerned about her son he has been missing and she started crying talking about her son. She said she did not sleep all night long. Her chest pressure is been 7/10. She has had no previous history of having any gastric ulcers. She is not on any blood thinners. Her blood sugar was over 300 today. She said her blood sugars are typically under control. She tells me that she has been having this discomfort for about 3 or 4 days now. It is intermittent and comes and goes. This occurred sharp pain. It does not radiate down her arms or in her back. She took Percocet and Tylenol for her discomfort but did seem to help. She was nauseated yesterday but did not throw up. She said this is typical for her to be nauseated with her pills. Cardiac enzymes are negative x2. That was when she was in her 30s and was negative. She does not have any history of any heart disease. However she does have many risk factors. She still continues to smoke, has diabetes and hyperlipidemia. She also has had PCOS in the past. Her pain occurs at rest. She is not short of breath. Her white count 11.3. Her blood sugars 357. Anion gap is closed. Chest x-ray was read as no acute cardiopulmonary disease. The patient has had breast abscess on the left side in the past that they did drain. The patient has a small sore on her right breast but there is no nodule or mass or abscess noted there at this time. The patient is being admitted as observation in IMU to rule out acute coronary syndrome. Date of service 12/31/2019 Review of Systems Review of Systems: All systems reviewed & are unremarkable except as noted in HPI and below Constitutional: Constitutional: Reports as per HPI and Reports no additional constitutional complaints Eyes: Eyes: Reports as per HPI and Reports no additional eye complaints ENT: Reports system reviewed and no additional complaints, except as documented and Reports Normal hearing present Cardiovascular: Cardiovascular: Reports no additional cardiovascular complaints Respiratory: Respiratory: Reports no additional respiratory complaints and Reports no additional respiratory complaints Gastrointestinal: Gastrointestinal: Reports as per HPI and Reports no additional gastrointestinal complaints Musculoskeletal: Musculoskeletal: Reports no additional musculoskeletal complaints Integumentary/Breasts: Skin/Breast: Reports system reviewed and no additional complaints, except as docu and Reports as per HPI Neurologic: Reports system reviewed and no additional complaints, except as documented, Reports as per HPI and Reports Normal hearing present Psychiatric: Psychiatric: Reports no additional psychiatric complaints and Reports as per HPI Endocrine: Endocrine: Reports no additional endocrine complaints Hematologic/Lymphatic: Hematologic/Lymphatic: Reports no additional hematologic/lymphatic complaints Allergic/Immunologic: Allergic/Immunologic: Reports no additional allergic/immunologic complaints PMFSH Past Medical History Medical History (Updated 12/31/19 @ 16:07 by Ligia Gannon NP) Anemia Prior to hysterectomy Anxiety Asthma Depression Ganglion cyst lt foot GERD (gastroesophageal reflux disease) Hyperlipidemia Polycystic ovaries Restless leg syndrome Spinal stenosis Type 2 diabetes mellitus Surgical History Surgical History (Updated 12/31/19 @ 14:37 by Ligia Gannon NP) H/O
--- NOTE | 2019-12-31 14:45 | ADMGEN ---
This patient, Kristi Nicole, was admitted to IMU Room 213-01 at 1424 on 12/31/2019. Patient/family oriented to hospital policies and general routines including ID bracelet, bed and alarms, visiting hours, pain management, procedures, bathroom and other care routines, personal items, smoking policy, room service/diet, and visiting hours. Information on how to activate the Rapid Response Team has been discussed. Patient/Family are encouraged to report perceived risks to care and to ask questions if they do not understand what they are told or what they should do.
[2019-12-31 16:18] LABS: Glucose Point of Care 180 (65-105)
[2019-12-31] MEDS: glipiZIDE 5 MG TABLET 10 MG PO (16:49)
[2019-12-31] MEDS: FAMOTIDINE 20 MG/2 ML VIAL IV PUSH ×2 (16:49→21:10)
[2019-12-31] MEDS: CYCLOBENZAPRINE HCL 10 MG TABLET PO (16:50)
[2019-12-31] MEDS: LORazepam (*CRX) 1 MG TABLET 2 MG BY MOUTH (16:50)
[2019-12-31] MEDS: oxyCODONE/ACETAMINOPHEN (*CRX) 5-325 MG TABLET 1 TABLET PO (16:51)
[2019-12-31] MEDS: oxyCODONE HCL (*CRX) 5 MG TAB IR PO (16:51)
[2019-12-31 17:16] LABS: Troponin I < 0.012 ng/mL (0.000-0.034)
[2019-12-31 17:24] LABS: Amphetamine Screen Urine Negative (Negative); Barbiturate Screen Urine Negative (Negative); Benzodiazepines Screen Urine Negative (Negative); Cannabinoid Screen Urine Negative (Negative); Cocaine Screen Urine Negative (Negative); Methadone Screen Urine Negative (Negative); Opiate Screen Urine Negative (Negative); Phencyclidine Screen Urine Negative (Negative)
[2019-12-31] MEDS: BELLADONNA ALK/PHENOB ELIX 10 ML, MAG HYDROX/ALUMINUM HYD/SIMETH 30 ML, LIDOCAINE HCL 2... PO (17:41)
[2019-12-31 18:04] LABS: Glucose Point of Care 284 (65-105)
[2019-12-31 20:31] LABS: Glucose Point of Care 253 (65-105)
[2019-12-31] MEDS: PRAVASTATIN SODIUM 20 MG TABLET 40 MG PO (21:09)
[2019-12-31] MEDS: QUEtiapine FUMARATE 100 MG TABLET 300 MG PO (21:09)
[2019-12-31] MEDS: busPIRone HCL 10 MG TABLET 30 MG PO (21:10)
[2019-12-31] MEDS: rOPINIRole HCL 1 MG TABLET 2 MG PO (21:10)
[2019-12-31] MEDS: DESIPRAMINE HCL 25 MG TABLET 50 MG PO (21:10)
[2020-01-01] VITALS (7 sets, daily range): BP systolic 103–104; BP diastolic 60–63; PULSE 73–97; RESP 18–20; TEMP 36.6–36.7; O2SAT 97–99
--- NOTE | 2020-01-01 | EST_ITS ---
Patient Info Name: Kristi Nicole Age: 49 years : 1970 Gender: Female Ht: 66 in Wt: 258 lbs BSA: 2.39 m2 Heart Rhythm: Sinus Rhythm Exam Date: 01/01/2020 8:44 AM Exam Location: [facility] Stress Patient Status: Inpatient Admit Date: 12/31/2019 Staff Ordering Physician: Ligia Gannon NP Attending Provider: Eh Rodgers MD Exercise Technologist: Serge Yao RDCS, RT Nurse: MAYKEL GARCIA Exam Type: CA stress brynn w NM Study Info A regadenoson stress test was performed. Summary 1. No abnormal ST/T wave changes meeting strict criteria for reversible myocardial ischemia. 2. No arrhythmias were observed during the examination. 3. Please correlate with nuclear medicine images, reported separately. 4. Slight increase in baseline chest pain during Lexiscan administration. Protocol: Lexiscan Stress ECG Details Stage: REST Duration (min): 1 min : 25 sec HR (bpm): 98 SBP (mmHg): 104 DBP (mmHg): 67 Stage: REST Duration (min): 2 min : 50 sec HR (bpm): 98 SBP (mmHg): 104 DBP (mmHg): 67 Stage: STAGE 1 Duration (min): 1 min : 0 sec HR (bpm): 108 SBP (mmHg): 115 DBP (mmHg): 71 Stage: RECOVERY Duration (min): 1 min : 0 sec HR (bpm): 105 SBP (mmHg): 115 DBP (mmHg): 71 Stage: RECOVERY Duration (min): 2 min : 0 sec HR (bpm): 105 SBP (mmHg): 115 DBP (mmHg): 71 Stage: RECOVERY Duration (min): 3 min : 0 sec HR (bpm): 103 SBP (mmHg): 131 DBP (mmHg): 65 Stage: RECOVERY Duration (min): 3 min : 38 sec HR (bpm): 104 SBP (mmHg): 131 DBP (mmHg): 65 Rest HR: 98 bpm Peak HR: 109 bpm Rest Sys BP: 104 mmHg Peak Sys BP: 131 mmHg Max Pred HR: 170 bpm % Max Pred HR: 64 % Target HR: 145 bpm Max RPP: 14,279 bpm*mmHg BP Response: Normal blood pressure response Termination Reason: Completed protocol Cardiac Symptoms: Chest pain Total Time: 1 min : 0 sec Rest Gee BP: 67 mmHg Peak Gee BP: 65 mmHg Total Dose: 0.4 mg Resting ECG Normal sinus rhythm - normal ECG. Stress ECG No abnormal ST/T wave changes meeting strict criteria for reversible myocardial ischemia. Arrhythmias No arrhythmias were observed during the examination. Report Signatures
[2020-01-01 06:42] LABS: Basophils Absolute Auto 0.1 K/mm3 (0.0-0.1); Basophils Percent Auto 0.5 % (0.2-1.2); Eosinophils Absolute Auto 0.1 K/mm3 (0-0.3); Eosinophils Percent Auto 0.8 % (0-4.4); Hematocrit 47.1 % (37.0-47.0); Hemoglobin 15.4 g/dL (12.0-15.0); Immature Granulocyte Absolute 0.08 K/mm3 (0.00-0.031); Immature Granulocyte Percent A 0.8 % (0-0.5); Lymphocytes Absolute Auto 1.78 K/mm3 (0.9-3.2); Lymphocytes Percent Auto 17.9 % (18.3-44.2); Mean Corpuscular HGB Conc 32.7 g/dl (32-36); Mean Corpuscular Volume 91.6 fl (80-100); Mean Platelet Volume 10.5 fl (7.4-10.4); Monocytes Absolute Auto 0.6 K/mm3 (0.1-0.6); Monocytes Percent Auto 6.2 % (2.6-8.5); Neutrophils Absolute Auto 7.3 K/mm3 (1.3-6.7); Neutrophils Percent Auto 73.8 % (45.5-73.1); Platelet Count Result 214 k/mm3 (150-375); Red Blood Count 5.14 M/mm3 (4.2-5.4); Red Cell Distribution Width 16.7 % (11.5-14.5); White Blood Count 9.9 K/mm3 (4.5-10.0)
[2020-01-01 07:01] LABS: Hemoglobin A1C 9.5 % (<5.7)
[2020-01-01 07:03] LABS: Alanine Aminotransferase 124 U/L (4-35); Albumin Level 3.9 g/dL (3.5-5.1); Alkaline Phosphatase 169 U/L (38-126); Anion Gap 5 mmol/L (8-16); Aspartate Amino Transferase 180 U/L (14-36); Bilirubin,Total 0.8 mg/dL (0.2-1.3); Blood Urea Nitrogen 9 mg/dL (7-17); Calcium 9.3 mg/dL (8.4-10.2); Carbon Dioxide 32 mmol/L (22-30); Chloride 99 mmol/L (98-107); Estimated CRCL calculation 149 ml/min; Estimated Glomerular Filt Rate > 60; Glucose 213 mg/dL (65-105); Magnesium 1.9 mg/dL (1.6-2.3); Potassium 4.8 mmol/L (3.4-5.0); Sodium 136 mmol/L (137-145)
--- NOTE | 2020-01-01 08:00 | PC.NURSE ---
Patient to Stress test via wheelchair.
--- NOTE | 2020-01-01 09:30 | PC.NURSE ---
Patient returned to room following stress test.
[2020-01-01] MEDS: ESCITALOPRAM OXALATE 10 MG TABLET 20 MG PO (09:51)
[2020-01-01] MEDS: ENOXAPARIN 40 MG/0.4 ML SYRINGE SUB-Q (09:51)
[2020-01-01] MEDS: CYCLOBENZAPRINE HCL 10 MG TABLET PO (09:51)
[2020-01-01] MEDS: busPIRone HCL 10 MG TABLET 30 MG PO (09:51)
[2020-01-01] MEDS: rOPINIRole HCL 1 MG TABLET 2 MG PO (09:51)
[2020-01-01] MEDS: oxyCODONE HCL (*CRX) 5 MG TAB IR PO (09:57)
[2020-01-01] MEDS: oxyCODONE/ACETAMINOPHEN (*CRX) 5-325 MG TABLET 1 TABLET PO (09:58)
[2020-01-01] MEDS: LORazepam (*CRX) 1 MG TABLET 2 MG BY MOUTH (09:58)
[2020-01-01 10:02] LABS: Glucose Point of Care 247 (65-105)
[2020-01-01] MEDS: glipiZIDE 5 MG TABLET 10 MG PO (10:42)
[2020-01-01] MEDS: INSULIN ASPART (*BKC) 100 UNITS/ML SUB-Q (10:43)
--- NOTE | 2020-01-01 11:24 | PM.DS ---
DS: Admitting Diagnosis Admitting Diagnosis Admitting Diagnosis: Chest Pain DS: Discharge Diagnosis Discharge Diagnosis (1) Depression: Code(s): F32.9 - Major depressive disorder, single episode, unspecified Status: Chronic (2) Chest pain at rest: Code(s): R07.9 - Chest pain, unspecified Status: Acute (3) Anxiety: Code(s): F41.9 - Anxiety disorder, unspecified Status: Chronic (4) Opioid dependence: Qualifiers: Substance use status: uncomplicated Qualified Code(s): F11.20 - Opioid dependence, uncomplicated Code(s): F11.20 - Opioid dependence, uncomplicated Status: Chronic (5) Diabetes mellitus out of control: Code(s): E11.65 - Type 2 diabetes mellitus with hyperglycemia Status: Acute (6) Neuropathic pain: Code(s): M79.2 - Neuralgia and neuritis, unspecified Status: Chronic (7) Breast abscess: Code(s): N61.1 - Abscess of the breast and nipple Status: Acute (8) Hyperlipidemia: Code(s): E78.5 - Hyperlipidemia, unspecified Status: Chronic (9) Restless leg syndrome: Code(s): G25.81 - Restless legs syndrome Status: Chronic (10) Encounter for surgical aftercare following surgery on the skin and subcutaneous tissue: Code(s): Z48.817 - Encounter for surgical aftercare following surgery on the skin and subcutaneous tissue Status: Acute (11) Costochondritis: Code(s): M94.0 - Chondrocostal junction syndrome [Tietze] Status: Acute DS: Summary Hospital Course Reason for hospitalization: Chest pain Hospital Course: Patient is a 49-year-old female with past medical history anxiety/depression, type 2 diabetes, morbid obesity, GERD, chronic opiate use who presents to the ED with complaints of chest pain.She has been undergoing a lot of stress recently and is reluctant to talk about the details number family problems. She states that she does not talk about the abdomen has no interest in talking this consult. She does medicate herself significantly with pain medication [place] 10 mg, Seroquel and suvorexant for sleep, Desipramine and BuSpar and Lexapro for her anxiety/depression. She most likely will need a psychologist or counselor as well to talk to although she is very reluctant stating that her family does not do that . Patient was tearful when her could not come up to see her because of the COVID-19 restrictions. For chest pain troponins negative, EKG no ST changes, Lexiscan negative for ischemia. Patient's symptoms are reproducible palpation, likely costochondritis. Her chest pain symptoms are more likely costochondritis however anxiety/depression are also in differential. Patient also has GERD which she takes omeprazole for and she has no melena or bloody stools. 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 Patient to continue her home Prilosec. Patient is on significant medications for anxiety/depression, continue home medications and follow-up with primary care physician. We will give referral for a psychologist/counselor in case she changes her mind and wants to talk to someone. For costochondritis patient to continue her home pain medication. Also her Hgb A1c is 9.5, patient needs adjustment of her diabetic medications and may need to be started on insulin. Patient would like to talk to her primary care provider before making changes to diabetic medications. Patient understands and agrees with plan. Patient's vital stable, labs stable, patient is stable for discharge. Status at Discharge Functional status at discharge: independent ambulation Overall status at discharge: patient is back to baseline Time Spent with Patient Time attestation: Total time spent providing and/or coordinating discharge services: 35min Time spent: Greater than 30 minutes Exam Narrative: Exam Narrative: - GENERAL: Obese woman no acute distress. Tearful when talking
== END 2020-01-01 11:58 | disposition home or self-care (01) ==
LOC: ANHED 09:55 → ANHIMU 14:06
PROVIDERS: Nurse Practitioner; Admitting Provider Family Medicine; Emergency Provider Emergency Medicine; PCP Family Medicine; Visit Provider Student in an Organized Health Care Education/Training Program
DX: F32.9 Major depressive disorder, single episode, unspecified (principal); R07.9 Chest pain, unspecified; F41.9 Anxiety disorder, unspecified; F11.20 Opioid dependence, uncomplicated; E11.65 Type 2 diabetes mellitus with hyperglycemia; E78.5 Hyperlipidemia, unspecified; G25.81 Restless legs syndrome; M94.0 Chondrocostal junction syndrome [Tietze]; M79.2 Neuralgia and neuritis, unspecified; N61.1 Abscess of the breast and nipple; J45.909 Unspecified asthma, uncomplicated; K21.9 Gastro-esophageal reflux disease without esophagitis; F17.210 Nicotine dependence, cigarettes, uncomplicated; F12.90 Cannabis use, unspecified, uncomplicated; Z48.817 Encounter for surgical aftercare following surgery on the skin and subcutaneous tissue; R94.31 Abnormal electrocardiogram [ECG] [EKG]; Z79.84 Long term (current) use of oral hypoglycemic drugs; Z79.899 Other long term (current) drug therapy; E66.9 Obesity, unspecified; Z68.41 Body mass index [BMI] 40.0-44.9, adult
CPT/HCPCS: 36415; 71046; 78452; 80053; 80307; 83036; 83690; 83735; 84443; 84484; 85025; 85380; 85610; 85730; 93005; 93017; 96372; 96374; 96375; 96376; 99285; A9270; A9502; G0378; J1650; J1815; J2060; J2785

== ENCOUNTER 2020-03-03 10:16 | Emergency (ER) | payer MEDICARE, MEDICAID, SELFPAY ==
--- NOTE | 2020-03-03 10:24 | ED.GENADULT ---
HPI - General Adult General Chief complaint: Wound/Laceration Stated complaint: Left foot pain Time Seen by Provider: 03/03/20 10:24 Source: patient Mode of arrival: ambulatory Limitations: no limitations History of Present Illness HPI narrative: 49-year-old female patient presents to the [facility] with complaints of left foot pain for the past 3 days. Patient is type II diabetic. Patient states she has had a blister to the left foot under the great toe. Patient states she has a callus under that toe as well which is not new. Patient called her primary doctor today about the blister and recommended that she be seen in urgent care for further evaluation. Patient states she does not check her sugars daily but normally are in the 200s. Patient states she got a special Band-Aid that she has been putting on the blister but denies any antibiotic ointment or soaking the foot at all at this time. Related Data Home Medications Medication Instructions Recorded Confirmed buspirone 30 mg PO BID 01/07/19 12/31/19 desipramine 50 mg PO HS 01/07/19 12/31/19 escitalopram oxalate [Lexapro] 20 mg PO DAILY 01/07/19 12/31/19 glipizide 10 mg PO BID 01/07/19 12/31/19 metformin 1,000 mg PO BID 01/07/19 12/31/19 oxycodone-acetaminophen [Percocet] 1 tablet PO QID PRN 01/07/19 12/31/19 pravastatin 40 mg PO HS 01/07/19 12/31/19 Tradjenta 5 mg PO DAILY 06/18/19 12/31/19 Belsomra 20 mg PO HS 12/31/19 12/31/19 Januvia 100 mg PO HS 12/31/19 12/31/19 Jardiance 25 mg PO DAILY 12/31/19 12/31/19 cyclobenzaprine 10 mg PO BID 12/31/19 12/31/19 lorazepam 2 mg PO BID PRN 12/31/19 12/31/19 omeprazole 20 mg PO DAILY 12/31/19 12/31/19 quetiapine [Seroquel] 300 mg PO HS 12/31/19 12/31/19 ropinirole 2 mg PO BID 12/31/19 12/31/19 Allergies Allergy/AdvReac Type Severity Reaction Status Date / Time morphine Allergy Intermediate Hives Verified 03/03/20 10:29 Sulfa (Sulfonamide Allergy Unknown Hives Verified 12/31/19 10:10 Antibiotics) vancomycin Allergy Unknown Hives Verified 12/31/19 10:10 Review of Systems Review of Systems: Narrative: CONSTITUTIONAL: Denies fever, chills, or sweats. EYES: Denies visual changes, redness, or discharge. ENT: Denies rhinorrhea, congestion, sore throat, or otalgia. CARDIOVASCULAR: Denies chest pain, palpitations, or edema. RESPIRATORY: Denies cough or dyspnea. GASTROINTESTINAL: Denies abdominal pain, nausea, vomiting, or diarrhea. GENITOURINARY: Denies dysuria or hematuria. SKIN: Denies rash or itching. Positive blister to left great toe x3 days MUSCULOSKELETAL: Denies back pain, joint pain, or myalgia. NEUROLOGIC: Denies headache, numbness, or weakness. PSYCHIATRIC: Denies anxiety or depression. FORMERLY [facility], [facility] Past Medical History Medical History Anemia Prior to hysterectomy Anxiety Asthma Depression Ganglion cyst lt foot GERD (gastroesophageal reflux disease) Hyperlipidemia Polycystic ovaries Restless leg syndrome Spinal stenosis Type 2 diabetes mellitus Surgical History Surgical History H/O arthroscopy lt knee H/O laparoscopy Multiple in her teenage years due to dysfunctional uterine bleeding. H/O tubal ligation H/O: hysterectomy Due to dysfunctional uterine bleeding History of incision and drainage Left breast Hx of appendectomy Hx of cholecystectomy Hx of tonsillectomy Family History Family History Mother Hypertension Depression Anxiety Father Unknown family medical history Social History Social History Social History: The patient is applying for disability and awaiting for final decision. She lives with her boyfriend and takes care of his mother. She also lives with his boyfriend's sister and child. She does not have a durable power estate attorney but desires to be a full code. Jadyn
[2020-03-03 10:35] VITALS: BP 137/77; PULSE 95; RESP 20; TEMP 36.7; O2SAT 99
[2020-03-03 10:39] LABS: Glucose Point of Care 252 (65-105)
== END 2020-03-03 10:47 | disposition home or self-care (01) ==
PROVIDERS: Emergency Provider Nurse Practitioner Family; PCP Family Medicine
DX: S90.422A Blister (nonthermal), left great toe, initial encounter (principal); X58.XXXA Exposure to other specified factors, initial encounter; E11.9 Type 2 diabetes mellitus without complications; F41.9 Anxiety disorder, unspecified; F32.9 Major depressive disorder, single episode, unspecified; J45.909 Unspecified asthma, uncomplicated; K21.9 Gastro-esophageal reflux disease without esophagitis; E78.5 Hyperlipidemia, unspecified; E28.2 Polycystic ovarian syndrome; G25.81 Restless legs syndrome; M48.00 Spinal stenosis, site unspecified
CPT/HCPCS: 82948; 99213; G0463

== ENCOUNTER 2020-04-29 10:12 | Emergency (ER) | payer MEDICARE, MEDICAID, SELFPAY ==
--- NOTE | ~2020-04-29 | CT_ITS ---
EXAMINATION: CT abdomen pelvis wo con EXAM DATE: 04/29/2020 11:15 INDICATION: Flank pain, low abd pain, UTI. TECHNIQUE: Spiral CT of the abdomen and pelvis was performed without contrast. Axial, coronal and sag ittal images were reviewed. The dose-length product (DLP) for this examination was 1589.02 mGy-cm. The exposure was tailored according to patient size (auto mA exposure control), and iterative reconst ruction (ASIR) was used as additional dose reduction technique. Comparison is made to prior examinati on from 03/06/2018. FINDINGS: There is no nephrolithiasis or hydronephrosis. The uterus is not identified and has likel y been surgically resected. The bladder is unremarkable. There is nodular cirrhotic liver. Portal v ein measures 21 mm in diameter, enlarged and consistent with portal hypertension. Gallbladder not id entified, patient likely has had cholecystectomy. Mild portacaval lymphadenopathy. Could be reactive . There is mild to moderate scattered arteriosclerotic disease. The appendix is not positively visualized. There is no pericecal inflammatory change to suggest appe ndicitis. The stomach and small bowel are unremarkable. There is moderate amount of colonic stool. No free intraperitoneal gas. Small pericardial effusion. The lung bases are unremarkable. Ther e are no osteoblastic or osteolytic lesions identified. IMPRESSION: 1. No nephrolithiasis, hydronephrosis or acute intra-abdominal findings. 2. Cirrhosis and portal hypertension. 3. Mild periportal lymphadenopathy. Probably reactive. 4. Moderate colonic stool. Reviewed, dictated and finalized at location [facility]. [facility] DEC[facility]ATOR
[2020-04-29 10:24] VITALS: BP 150/87; PULSE 98; RESP 16; TEMP 36.7; O2SAT 98
--- NOTE | 2020-04-29 10:29 | ED.FEMALEGU ---
HPI - Female Genitourinary General Chief complaint: Urogenital-Female Stated complaint: uti sx Time Seen by Provider: 04/29/20 10:20 Source: patient Mode of arrival: ambulatory Limitations: no limitations History of Present Illness HPI Narrative: This is a 49 year old female that presents to the ER for urinary symptoms over the last couple of days. Reports burning with urination. Reports lower abdominal pain with urination. Did report some flank pain yesterday. Reports her urine looks cloudy. Does have history of UTIs. Denies fever, vomiting, or hematuria. Related Data Home Medications Medication Instructions Recorded Confirmed buspirone 30 mg PO BID 01/07/19 12/31/19 desipramine 50 mg PO HS 01/07/19 12/31/19 escitalopram oxalate [Lexapro] 20 mg PO DAILY 01/07/19 12/31/19 glipizide 10 mg PO BID 01/07/19 12/31/19 metformin 1,000 mg PO BID 01/07/19 12/31/19 oxycodone-acetaminophen [Percocet] 1 tablet PO QID PRN 01/07/19 12/31/19 pravastatin 40 mg PO HS 01/07/19 12/31/19 Tradjenta 5 mg PO DAILY 06/18/19 12/31/19 Belsomra 20 mg PO HS 12/31/19 12/31/19 Januvia 100 mg PO HS 12/31/19 12/31/19 Jardiance 25 mg PO DAILY 12/31/19 12/31/19 cyclobenzaprine 10 mg PO BID 12/31/19 12/31/19 lorazepam 2 mg PO BID PRN 12/31/19 12/31/19 omeprazole 20 mg PO DAILY 12/31/19 12/31/19 quetiapine [Seroquel] 300 mg PO HS 12/31/19 12/31/19 ropinirole 2 mg PO BID 12/31/19 12/31/19 Allergies Allergy/AdvReac Type Severity Reaction Status Date / Time morphine Allergy Intermediate Hives Verified 04/29/20 10:30 Sulfa (Sulfonamide Allergy Unknown Hives Verified 04/29/20 10:30 Antibiotics) vancomycin Allergy Unknown Hives Verified 04/29/20 10:30 Review of Systems Review of Systems: Narrative: CONSTITUTIONAL: Denies fever GASTROINTESTINAL: Reports abdominal pain. Denies nausea, vomiting GENITOURINARY: Reports dysuria. Denies hematuria. SKIN: Denies rash All systems reviewed & are unremarkable except as noted in HPI and below PMFSH Past Medical History Medical History Anemia Prior to hysterectomy Anxiety Asthma Depression Ganglion cyst lt foot GERD (gastroesophageal reflux disease) Hyperlipidemia Polycystic ovaries Restless leg syndrome Spinal stenosis Type 2 diabetes mellitus Surgical History Surgical History H/O arthroscopy lt knee H/O laparoscopy Multiple in her teenage years due to dysfunctional uterine bleeding. H/O tubal ligation H/O: hysterectomy Due to dysfunctional uterine bleeding History of incision and drainage Left breast Hx of appendectomy Hx of cholecystectomy Hx of tonsillectomy Family History Family History Mother Hypertension Depression Anxiety Father Unknown family medical history Social History Social History Social History: The patient is applying for disability and awaiting for final decision. She lives with her boyfriend and takes care of his mother. She also lives with his boyfriend's sister and child. She does not have a durable power commercial attorney but desires to be a full code. Patient is an only child. She does not know her father's history. Her son has a drug problem. Her daughter is obese. She has the 2 children and her son is missing action. She is not sure where her son is at this time. Primary care physician: Dr. Gil Berg Smoking packs per day: 1.5 Smoking cigarettes per day: 30.0 Years smoked: 35 Smoking pack-years: 52.50 Smoking status: Current every day smoker Tobacco type: cigarettes Second hand tobacco smoke exposure: Yes Alcohol intake: never Drinks per week: 2 Substance use: former Substance use type: marijuana Additional occupation/education comments: On disability. Gender identity (if verbalized by the patient): Female
[2020-04-29 10:43] LABS: Basophils Absolute Auto 0.1 K/mm3 (0.0-0.1); Basophils Percent Auto 0.6 % (0.2-1.2); Eosinophils Percent Auto 0.4 % (0-4.4); Hematocrit 44.2 % (37.0-47.0); Hemoglobin 14.5 g/dL (12.0-15.0); Immature Granulocyte Absolute 0.08 K/mm3 (0.00-0.031); Immature Granulocyte Percent A 0.7 % (0-0.5); Lymphocytes Absolute Auto 1.53 K/mm3 (0.9-3.2); Lymphocytes Percent Auto 13.8 % (18.3-44.2); Mean Corpuscular HGB Conc 32.8 g/dl (32-36); Mean Corpuscular Hemoglobin 30.5 pg (26-34); Mean Corpuscular Volume 93.1 fl (80-100); Monocytes Absolute Auto 0.8 K/mm3 (0.1-0.6); Monocytes Percent Auto 7.1 % (2.6-8.5); Neutrophils Absolute Auto 8.6 K/mm3 (1.3-6.7); Neutrophils Percent Auto 77.4 % (45.5-73.1); Platelet Count Result 229 k/mm3 (150-375); Red Blood Count 4.75 M/mm3 (4.2-5.4); Red Cell Distribution Width 15.9 % (11.5-14.5); White Blood Count 11.1 K/mm3 (4.5-10.0)
[2020-04-29 10:47] LABS: Add Urine Microscopic? YES; Appearance Urine Cloudy (Clear); Bilirubin Urine Negative (Negative); Blood Urine 2+ (Negative); Color Urine Yellow (Yellow); Glucose Urine UA 3+ mg/dL (Negative); Ketones Urine Negative (Negative); Leukocyte Esterase Ur 3+ LEU/UL (Negative); Nitrate Urine Negative (Negative); Protein Urine 2+ mg/dL (Negative); RBC Urine >75 /hpf (0-2); Squamous Epithelial Cell Urine Few /hpf (Few); Urobilinogen Urine Negative mg/dL (<2.0); WBC Urine >75 /hpf
[2020-04-29 10:49] LABS: Specific Grav Ur 1.033 (1.001-1.035)
[2020-04-29 10:59] LABS: Anion Gap 10 mmol/L (8-16); Blood Urea Nitrogen 9 mg/dL (7-17); CRP 3.2 mg/dL (<1.0); Calcium 9.7 mg/dL (8.4-10.2); Carbon Dioxide 25 mmol/L (22-30); Chloride 103 mmol/L (98-107); Estimated Glomerular Filt Rate > 60; Glucose 227 mg/dL (65-105); Potassium 4.2 mmol/L (3.4-5.0); Sodium 138 mmol/L (137-145)
[2020-04-29] MEDS: SODIUM CHLORIDE 0.9% IV 1,000 ML 999 ML IV CONT (11:07)
[2020-04-29 11:22] LABS: INR 0.9; Prothrombin Time 13.1 Seconds (11.1-14.7)
[2020-04-29 11:23] LABS: Partial Thromboplastin Time 29.2 SECONDS (22.3-36.8)
--- NOTE | 2020-04-29 12:06 | PC.NURSE ---
provider aware of patients request for pain medications
[2020-04-29] MEDS: KETOROLAC 30 MG/ML VIAL (*BKC) IV PUSH (12:17)
[2020-04-29 13:30] VITALS: BP 138/70; PULSE 80; RESP 20; O2SAT 99
[2020-04-29 13:41] LABS: Reflex Lactic Acid Yes or No Add Lactic
== END 2020-04-29 13:32 | disposition home or self-care (01) ==
PROVIDERS: Physician Assistant; Emergency Provider Emergency Medicine; PCP Family Medicine
DX: N30.01 Acute cystitis with hematuria (principal); J45.909 Unspecified asthma, uncomplicated; K21.9 Gastro-esophageal reflux disease without esophagitis; E78.5 Hyperlipidemia, unspecified; E28.2 Polycystic ovarian syndrome; G25.81 Restless legs syndrome; E11.9 Type 2 diabetes mellitus without complications; F41.9 Anxiety disorder, unspecified; F32.9 Major depressive disorder, single episode, unspecified; F17.210 Nicotine dependence, cigarettes, uncomplicated; K74.60 Unspecified cirrhosis of liver; K76.6 Portal hypertension; Z79.84 Long term (current) use of oral hypoglycemic drugs
CPT/HCPCS: 36415; 74176; 80048; 81001; 83605; 85025; 85610; 85730; 86140; 87040; 87077; 87086; 87088; 87186; 96365; 96375; 99284; J0696; J1885; J7030

== ENCOUNTER 2020-06-03 10:08 | Emergency (ER) | payer MEDICARE, MEDICAID, SELFPAY ==
[2020-06-03 10:11] VITALS: BP 128/67; PULSE 97; RESP 18; TEMP 36.2; O2SAT 97
[2020-06-03 10:49] LABS: Bilirubin Urine Negative (Negative); Color Urine Yellow (Yellow); Glucose Urine UA 3+ mg/dL (Negative); Ketones Urine Negative (Negative); Leukocyte Esterase Ur Negative LEU/UL (Negative); Nitrate Urine Negative (Negative); Protein Urine Negative (Negative); Specific Grav Ur 1.015 (1.001-1.035); Urobilinogen Urine 0.2 mg/dL (<2.0)
[2020-06-03 11:05] LABS: Add Urine Microscopic? YES; Appearance Urine Sl Cloudy (Clear); Blood Urine Trace-Intact (Negative)
[2020-06-03 11:28] VITALS: BP 128/87; PULSE 95; RESP 18; O2SAT 99
[2020-06-03 11:41] LABS: WBC Urine 0-3 /hpf
[2020-06-03 11:42] LABS: Squamous Epithelial Cell Urine Few /hpf (Few)
[2020-06-03 11:53] LABS: Glucose Point of Care 253 (65-105)
--- NOTE | 2020-06-03 12:34 | ED.FEMALEGU ---
HPI - Female Genitourinary General Chief complaint: Urogenital-Female Stated complaint: UTI sx Time Seen by Provider: 06/03/20 11:33 History of Present Illness HPI Narrative: Patient is a 49-year-old female who presents ER with burning urination. Ongoing over the last couple of days. Denies urinary frequency or fevers or chills. No lower abdominal pressure or pain. She without vaginal discharge or vaginal bleeding. She has no concerns for yeast infection. Reports her PCP told her to come to the ER to be checked out. Related Data Home Medications Medication Instructions Recorded Confirmed buspirone 30 mg PO BID 01/07/19 12/31/19 desipramine 50 mg PO HS 01/07/19 12/31/19 escitalopram oxalate [Lexapro] 20 mg PO DAILY 01/07/19 12/31/19 glipizide 10 mg PO BID 01/07/19 12/31/19 metformin 1,000 mg PO BID 01/07/19 12/31/19 oxycodone-acetaminophen [Percocet] 1 tablet PO QID PRN 01/07/19 12/31/19 pravastatin 40 mg PO HS 01/07/19 12/31/19 Tradjenta 5 mg PO DAILY 06/18/19 12/31/19 Belsomra 20 mg PO HS 12/31/19 12/31/19 Januvia 100 mg PO HS 12/31/19 12/31/19 Jardiance 25 mg PO DAILY 12/31/19 12/31/19 cyclobenzaprine 10 mg PO BID 12/31/19 12/31/19 lorazepam 2 mg PO BID PRN 12/31/19 12/31/19 omeprazole 20 mg PO DAILY 12/31/19 12/31/19 quetiapine [Seroquel] 300 mg PO HS 12/31/19 12/31/19 ropinirole 2 mg PO BID 12/31/19 12/31/19 Allergies Allergy/AdvReac Type Severity Reaction Status Date / Time morphine Allergy Intermediate Hives Verified 06/03/20 11:36 Sulfa (Sulfonamide Allergy Unknown Hives Verified 06/03/20 11:36 Antibiotics) vancomycin Allergy Unknown Hives Verified 06/03/20 11:36 Review of Systems Constitutional: Constitutional: Denies chills Comments: No fevers Gastrointestinal: Gastrointestinal: Denies abdominal pain, Denies nausea and Denies vomiting Genitourinary: Genitourinary: Denies abnormal vaginal bleeding, Denies hematuria, Denies nocturia, Reports dysuria, Denies flank pain, Denies urinary incontinence and Denies vaginal discharge PMFSH Past Medical History Medical History Anemia Prior to hysterectomy Anxiety Asthma Depression Ganglion cyst lt foot GERD (gastroesophageal reflux disease) Hyperlipidemia Polycystic ovaries Restless leg syndrome Spinal stenosis Type 2 diabetes mellitus Surgical History Surgical History H/O arthroscopy lt knee H/O laparoscopy Multiple in her teenage years due to dysfunctional uterine bleeding. H/O tubal ligation H/O: hysterectomy Due to dysfunctional uterine bleeding History of incision and drainage Left breast Hx of appendectomy Hx of cholecystectomy Hx of tonsillectomy Family History Family History Mother Hypertension Depression Anxiety Father Unknown family medical history Social History Social History Social History: The patient is applying for disability and awaiting for final decision. She lives with her boyfriend and takes care of his mother. She also lives with his boyfriend's sister and child. She does not have a durable power trial attorney but desires to be a full code. Patient is an only child. She does not know her father's history. Her son has a drug problem. Her daughter is obese. She has the 2 children and her son is missing action. She is not sure where her son is at this time. Primary care physician: Dr. Gil Berg Smoking packs per day: 1.5 Smoking cigarettes per day: 30.0 Years smoked: 35 Smoking pack-years: 52.50 Smoking status: Current every day smoker Tobacco type: cigarettes Second hand tobacco smoke exposure: Yes Alcohol intake: never Drinks per week: 2 Substance use: former Substance use type: marijuana Additional occupation/education comments: On disability. Gender i
[2020-06-03 12:54] VITALS: BP 127/72; PULSE 94; RESP 15; O2SAT 97
== END 2020-06-03 12:55 | disposition home or self-care (01) ==
PROVIDERS: Emergency Medicine; Emergency Provider Emergency Medicine; PCP Family Medicine
DX: R30.0 Dysuria (principal); F17.210 Nicotine dependence, cigarettes, uncomplicated; D64.9 Anemia, unspecified; F41.9 Anxiety disorder, unspecified; J45.909 Unspecified asthma, uncomplicated; F32.9 Major depressive disorder, single episode, unspecified; K21.9 Gastro-esophageal reflux disease without esophagitis; E78.5 Hyperlipidemia, unspecified; E11.9 Type 2 diabetes mellitus without complications; G25.81 Restless legs syndrome; Z79.84 Long term (current) use of oral hypoglycemic drugs
CPT/HCPCS: 81001; 82948; 99283

== ENCOUNTER 2020-06-11 12:28 | Emergency (ER) | payer MEDICARE, MEDICAID, SELFPAY ==
--- NOTE | ~2020-06-11 | CT_ITS ---
EXAMINATION: CT abdomen pelvis wo con DATE: 06/11/2020 14:14 INDICATION: Right flank pain and low back pain for 3 days TECHNIQUE: Computed tomography (CT) of the abdomen and pelvis was performed without intravenous contr ast. Automated exposure control and iterative reconstruction technique were employed. Exam dose: 986 .99 mGy-cm total exam DLP. COMPARISON: 05/09/2020 CT abdomen pelvis noncontrast examination FINDINGS: The lung bases are clear of infiltrate or consolidation. Normal heart size. No pericardial or pleural effusion. There is very prominent surface nodularity of the liver consistent with cirrhosis. There is splenomeg abdon, the spleen measuring approximately 14.6 cm vertical dimension. Status post cholecystectomy. No bile duct duct dilatation. No hepatic space-occupying mass lesion is evident on this limited noncontrast examination. There is p ancreatic atrophy. No pancreatic mass lesion, calcification or ductal dilatation. Normal morphology of the adrenal glands. No renal mass lesion. No urinary tract calculus or hydroureteronephrosis. The urinary bladder is unre markable. Status post hysterectomy. There is atherosclerotic calcification of the abdominal aorta but no aneurysm. No intraperitoneal or retroperitoneal or pelvic mass lesion or adenopathy or ascites. Status post appendectomy. There is a prominent amount fecal material in the colon. No bowel obstructi on, bowel wall thickening, pneumatosis or intraperitoneal free air. Included skeletal structures are unremarkable. IMPRESSION: Cirrhosis and splenomegaly Reviewed, dictated and finalized at [facility]. Reviewed, dictated and finalized at location [facility]. IMPRESSION: Cirrhosis and splenomegaly
--- NOTE | ~2020-06-11 | XR_ITS ---
XR chest 1V DATE: 06/11/2020 14:22 INDICATION: Right-sided pain TECHNIQUE: PA chest COMPARISON: 12/31/2019 PA and lateral chest FINDINGS: Normal heart size. No hilar or mediastinal enlargement. No pulmonary infiltrate or consolid ation, pleural effusion or pulmonary vascular congestion or pneumothorax. IMPRESSION: No active cardiopulmonary disease Reviewed, dictated and finalized at location [facility].
[2020-06-11 12:34] VITALS: BP 135/98; PULSE 108; RESP 18; TEMP 36.1; O2SAT 98
[2020-06-11 12:55] LABS: Add Urine Microscopic? YES; Appearance Urine Clear (Clear); Bilirubin Urine Negative (Negative); Blood Urine Negative (Negative); Color Urine Straw (Yellow); Glucose Urine UA 3+ mg/dL (Negative); Ketones Urine Negative (Negative); Leukocyte Esterase Ur Negative LEU/UL (Negative); Mucus Urine Rare /lpf; Nitrate Urine Negative (Negative); Protein Urine Negative (Negative); RBC Urine 0-2 /hpf (0-2); Squamous Epithelial Cell Urine Few /hpf (Few); Urobilinogen Urine Negative mg/dL (<2.0); WBC Urine 0-3 /hpf
[2020-06-11 13:03] LABS: Specific Grav Ur 1.033 (1.001-1.035)
--- NOTE | 2020-06-11 13:28 | ED.GENADULT ---
HPI - General Adult General Chief complaint: Back Pain/Injury Stated complaint: lower back pain Time Seen by Provider: 06/11/20 13:25 History of Present Illness HPI narrative: Patient is a 49-year-old female complaining of right-sided lower back pain. Patient reports that pain started 3 days ago. There was no mechanism injury. Pain is constant and described as sharp. There are no known exacerbating or alleviating factors. She otherwise denies any other symptoms including fevers, urinary symptoms, abdominal pain, nausea, vomiting, rash. She notes that she has pre-existing back issues but this is different, her pre-existing back issues does cause her to have occasional sciatica. Related Data Home Medications Medication Instructions Recorded Confirmed buspirone 30 mg PO BID 01/07/19 12/31/19 desipramine 50 mg PO HS 01/07/19 12/31/19 escitalopram oxalate [Lexapro] 20 mg PO DAILY 01/07/19 12/31/19 glipizide 10 mg PO BID 01/07/19 12/31/19 metformin 1,000 mg PO BID 01/07/19 12/31/19 oxycodone-acetaminophen [Percocet] 1 tablet PO QID PRN 01/07/19 12/31/19 pravastatin 40 mg PO HS 01/07/19 12/31/19 Tradjenta 5 mg PO DAILY 06/18/19 12/31/19 Belsomra 20 mg PO HS 12/31/19 12/31/19 Januvia 100 mg PO HS 12/31/19 12/31/19 Jardiance 25 mg PO DAILY 12/31/19 12/31/19 cyclobenzaprine 10 mg PO BID 12/31/19 12/31/19 lorazepam 2 mg PO BID PRN 12/31/19 12/31/19 omeprazole 20 mg PO DAILY 12/31/19 12/31/19 quetiapine [Seroquel] 300 mg PO HS 12/31/19 12/31/19 ropinirole 2 mg PO BID 12/31/19 12/31/19 Allergies Allergy/AdvReac Type Severity Reaction Status Date / Time morphine Allergy Intermediate Hives Verified 06/11/20 12:38 Sulfa (Sulfonamide Allergy Unknown Hives Verified 06/11/20 12:38 Antibiotics) vancomycin Allergy Unknown Hives Verified 06/11/20 12:38 Review of Systems Constitutional: Constitutional: Reports as per HPI, Denies fever(s), Denies night sweats and Denies weakness Cardiovascular: Cardiovascular: Denies chest pain, Denies edema, Denies leg edema, Denies dyspnea and Denies orthopnea Respiratory: Respiratory: Denies cough and Denies dyspnea Gastrointestinal: Gastrointestinal: Denies abdominal pain, Denies constipation, Denies diarrhea, Denies nausea and Denies vomiting Genitourinary: Genitourinary: Reports flank pain Musculoskeletal: Musculoskeletal: Reports as per HPI (back pain), Denies abnormal gait, Denies back pain, Denies numbness and Denies tingling Neurologic: Denies Abnormal speech present, Denies abnormal gait, Denies numbness, Denies tingling and Denies weakness Psychiatric: Psychiatric: Denies homicidal ideation and Denies suicidal ideation PMFSH Past Medical History Medical History Anemia Prior to hysterectomy Anxiety Asthma Depression Ganglion cyst lt foot GERD (gastroesophageal reflux disease) Hyperlipidemia Polycystic ovaries Restless leg syndrome Spinal stenosis Type 2 diabetes mellitus Surgical History Surgical History H/O arthroscopy lt knee H/O laparoscopy Multiple in her teenage years due to dysfunctional uterine bleeding. H/O tubal ligation H/O: hysterectomy Due to dysfunctional uterine bleeding History of incision and drainage Left breast Hx of appendectomy Hx of cholecystectomy Hx of tonsillectomy Family History Family History Mother Hypertension Depression Anxiety Father Unknown family medical history Social History Social History Social History: The patient is applying for disability and awaiting for final decision. She lives with her boyfriend and takes care of his mother. She also lives with his boyfriend's sister and child. She does not have a durable power commercial litigation attorney but desires to be a full code. Patient is an only child. She does not
[2020-06-11] MEDS: oxyCODONE/ACETAMINOPHEN (*CRX) 5-325 MG TABLET 1 TABLET PO (14:06)
[2020-06-11] MEDS: KETOROLAC 30 MG/ML VIAL (*BKC) IM (14:08)
[2020-06-11 16:32] VITALS: BP 131/81; PULSE 95; RESP 16; O2SAT 96
== END 2020-06-11 16:25 | disposition home or self-care (01) ==
PROVIDERS: Emergency Medicine; Emergency Provider Emergency Medicine; PCP Family Medicine
DX: R10.9 Unspecified abdominal pain (principal); S39.012A Strain of muscle, fascia and tendon of lower back, initial encounter; X58.XXXA Exposure to other specified factors, initial encounter; F17.210 Nicotine dependence, cigarettes, uncomplicated; F41.9 Anxiety disorder, unspecified; J45.909 Unspecified asthma, uncomplicated; K21.9 Gastro-esophageal reflux disease without esophagitis; E78.5 Hyperlipidemia, unspecified; E28.2 Polycystic ovarian syndrome; G25.81 Restless legs syndrome; E11.9 Type 2 diabetes mellitus without complications; F32.9 Major depressive disorder, single episode, unspecified
CPT/HCPCS: 71045; 74176; 81001; 81025; 96372; 99284; A9270; J1885

== ENCOUNTER 2020-07-11 07:20 | Outpatient (CLI) | payer MEDICARE, MEDICAID, SELFPAY ==
[2020-07-11 08:03] LABS: Basophils Percent Auto 0.3 % (0.2-1.2); Eosinophils Absolute Auto 0.1 K/mm3 (0-0.3); Hemoglobin 13.8 g/dL (12.0-15.0); Immature Granulocyte Absolute 0.03 K/mm3 (0.00-0.031); Immature Granulocyte Percent A 0.4 % (0-0.5); Immature Reticulocyte Fraction 25.3 % (3.0-15.9); Lymphocytes Absolute Auto 1.07 K/mm3 (0.9-3.2); Lymphocytes Percent Auto 15.3 % (18.3-44.2); Mean Corpuscular HGB Conc 31.4 g/dl (32-36); Mean Corpuscular Hemoglobin 27.4 pg (26-34); Mean Corpuscular Volume 87.5 fl (80-100); Mean Platelet Volume 10.7 fl (7.4-10.4); Monocytes Absolute Auto 0.6 K/mm3 (0.1-0.6); Monocytes Percent Auto 8.1 % (2.6-8.5); Neutrophils Absolute Auto 5.3 K/mm3 (1.3-6.7); Neutrophils Percent Auto 74.9 % (45.5-73.1); Platelet Count Result 156 k/mm3 (150-375); Red Blood Count 5.03 M/mm3 (4.2-5.4); Red Cell Distribution Width 14.4 % (11.5-14.5); Reticulocyte Hemoglobin Conten 30.9 pg (28.2-35.7); Reticulocyte Percent 1.95 % (0.7-4.3)
[2020-07-11 08:39] LABS: Alanine Aminotransferase 79 U/L (4-35); Albumin Level 4.2 g/dL (3.5-5.1); Alkaline Phosphatase 235 U/L (38-126); Anion Gap 5 mmol/L (8-16); Aspartate Amino Transferase 89 U/L (14-36); Bilirubin,Total 0.5 mg/dL (0.2-1.3); Blood Urea Nitrogen 9 mg/dL (7-17); Calcium 9.7 mg/dL (8.4-10.2); Carbon Dioxide 28 mmol/L (22-30); Chloride 104 mmol/L (98-107); Cholesterol 183 mg/dL (0-200); Estimated Glomerular Filt Rate > 60; Glucose 231 mg/dL (65-105); HDL Direct 41 mg/dL; Lactate Dehydrogenase 354 U/L (313-618); Magnesium 1.8 mg/dL (1.6-2.3); Phosphorus 4.5 mg/dL (2.5-4.5); Potassium 4.5 mmol/L (3.4-5.0); Sodium 137 mmol/L (137-145); Triglycerides 217 mg/dL (<150)
[2020-07-11 08:50] LABS: LDL Cholesterol Direct 103 mg/dL
[2020-07-11 08:57] LABS: Iron 35 ug/dL (37-170)
[2020-07-11 09:05] LABS: Free T4 Free Thyroxine 1.01 ng/mL (0.78-2.19); Vitamin D 25 Hydroxy 43.3 ng/mL
[2020-07-11 09:08] LABS: Percent Iron Saturation 7 % (20-50)
[2020-07-11 09:20] LABS: Hemoglobin A1C 12.2 % (<5.7)
[2020-07-11 09:34] LABS: Total Triiodothyronine (T3) 0.96 NG/ML (0.97-1.69)
[2020-07-11 10:13] LABS: Folic Acid > 20.0 ng/mL (2.76->20)
[2020-07-11 11:08] LABS: MALB Creatinine Ratio < 19.4 mg/g (0-30); Microalbumin Urine Random < 6.0 mg/L (0-16.7)
== END 2020-07-11 07:21 | disposition home or self-care (01) ==
PROVIDERS: PCP Family Medicine; Visit Provider Nurse Practitioner Family
DX: E11.42 Type 2 diabetes mellitus with diabetic polyneuropathy (principal); R94.5 Abnormal results of liver function studies; K74.60 Unspecified cirrhosis of liver; D51.9 Vitamin B12 deficiency anemia, unspecified; E78.5 Hyperlipidemia, unspecified; R53.83 Other fatigue; E55.9 Vitamin D deficiency, unspecified; M62.81 Muscle weakness (generalized)
CPT/HCPCS: 36415; 80053; 80061; 82043; 82306; 82607; 82728; 82746; 83036; 83540; 83550; 83615; 83735; 84100; 84439; 84443; 84480; 85025; 85046

== ENCOUNTER 2020-07-14 10:59 | Outpatient (CLI) | payer MEDICARE, MEDICAID, SELFPAY ==
[2020-07-14 11:26] LABS: Uric Acid 2.5 mg/dL (2.5-7.5)
[2020-07-14 11:34] LABS: Transferrin 436 mg/dL (206-381)
== END 2020-07-14 11:00 | disposition home or self-care (01) ==
LOC: ANHLAB 11:02
PROVIDERS: PCP Family Medicine; Visit Provider Nurse Practitioner Family
DX: E11.42 Type 2 diabetes mellitus with diabetic polyneuropathy (principal); R94.5 Abnormal results of liver function studies; K74.60 Unspecified cirrhosis of liver; D51.9 Vitamin B12 deficiency anemia, unspecified; E78.5 Hyperlipidemia, unspecified; R53.83 Other fatigue; E55.9 Vitamin D deficiency, unspecified; M62.81 Muscle weakness (generalized)
CPT/HCPCS: 36415; 84466; 84550

== ENCOUNTER 2020-09-11 09:18 | Emergency (ER) | payer MEDICARE, MEDICAID, SELFPAY ==
[2020-09-11 09:29] VITALS: BP 121/82; PULSE 98; RESP 16; TEMP 36.3; O2SAT 97
--- NOTE | 2020-09-11 10:29 | ED.SKABFB ---
HPI - Skin/Abscess/Foreign Bdy General Chief complaint: Skin/Abscess/Foreign Body Stated complaint: rash under armpit Time Seen by Provider: 09/11/20 10:29 Source: patient Mode of arrival: ambulatory Limitations: no limitations History of Present Illness HPI narrative: Tila Nicole is a 49-year-old female with a PMH of hypertension, diabetes, high cholesterol, comes to [facility] with multiple painful lesions under her right arm in the axilla area. Has diabetes, high cholesterol Related Data Home Medications Medication Instructions Recorded Confirmed desipramine 50 mg PO DAILY 09/11/20 09/11/20 empagliflozin [Jardiance] 25 mg PO DAILY 09/11/20 09/11/20 escitalopram oxalate 20 mg PO DAILY 09/11/20 09/11/20 metformin 1,000 mg PO BID 09/11/20 09/11/20 pravastatin 40 mg PO DAILY 09/11/20 09/11/20 quetiapine 800 mg PO HS 09/11/20 09/11/20 ropinirole 2 mg PO BID 09/11/20 09/11/20 sitagliptin [Januvia] 100 mg PO DAILY 09/11/20 09/11/20 trazodone 100 mg PO HS 09/11/20 09/11/20 Allergies Allergy/AdvReac Type Severity Reaction Status Date / Time morphine Allergy Intermediate Hives Verified 09/11/20 09:43 Sulfa (Sulfonamide Allergy Unknown Hives Verified 09/11/20 09:43 Antibiotics) vancomycin Allergy Unknown Hives Verified 09/11/20 09:43 Review of Systems Review of Systems: Narrative: CONSTITUTIONAL: Denies fever, chills, sweats. EYES: Denies visual changes, redness, discharge. ENT: Denies rhinorrhea, congestion, sore throat, otalgia. CARDIOVASCULAR: Denies chest pain, palpitations, edema. RESPIRATORY: Denies dyspnea, wheezing, cough GASTROINTESTINAL: Denies abdominal pain, nausea, vomiting, diarrhea. GENITOURINARY: Denies dysuria, hematuria, abnormal discharge SKIN: Denies rash or itching. Has multiple lesions under right arm and axilla that are tender NEUROLOGIC: Denies numbness, or focal weakness. PSYCHIATRIC: Denies anxiety or depression. [facility]LY [facility] Past Medical History Medical History Anemia Prior to hysterectomy Anxiety Asthma Depression Ganglion cyst lt foot GERD (gastroesophageal reflux disease) Hyperlipidemia Polycystic ovaries Restless leg syndrome Spinal stenosis Type 2 diabetes mellitus Surgical History Surgical History H/O arthroscopy lt knee H/O laparoscopy Multiple in her teenage years due to dysfunctional uterine bleeding. H/O tubal ligation H/O: hysterectomy Due to dysfunctional uterine bleeding History of incision and drainage Left breast Hx of appendectomy Hx of cholecystectomy Hx of tonsillectomy Family History Family History Mother Hypertension Depression Anxiety Father Unknown family medical history Social History Social History Social History: The patient is applying for disability and awaiting for final decision. She lives with her boyfriend and takes care of his mother. She also lives with his boyfriend's sister and child. She does not have a durable power title attorney but desires to be a full code. Patient is an only child. She does not know her father's history. Her son has a drug problem. Her daughter is obese. She has the 2 children and her son is missing action. She is not sure where her son is at this time. Primary care physician: Dr. Gil Berg Smoking packs per day: 1.5 Smoking cigarettes per day: 30.0 Years smoked: 35 Smoking pack-years: 52.50 Smoking status: Current every day smoker Tobacco type: cigarettes Second hand tobacco smoke exposure: Yes Alcohol intake: never Drinks per week: 2 Substance use: former Substance use type: marijuana Additional occupation/education comments: On disability. Gender identity (if verbalized by the patient): Female Spiritual care concerns: No Agree to blood product
== END 2020-09-11 10:47 | disposition home or self-care (01) ==
PROVIDERS: Emergency Provider Nurse Practitioner; PCP Family Medicine
DX: L03.111 Cellulitis of right axilla (principal); E78.00 Pure hypercholesterolemia, unspecified; I10 Essential (primary) hypertension; J45.909 Unspecified asthma, uncomplicated; K21.9 Gastro-esophageal reflux disease without esophagitis; E11.9 Type 2 diabetes mellitus without complications; E28.2 Polycystic ovarian syndrome; E78.5 Hyperlipidemia, unspecified; G25.81 Restless legs syndrome; F17.210 Nicotine dependence, cigarettes, uncomplicated
CPT/HCPCS: 99213; G0463

== ENCOUNTER 2020-09-18 09:04 | Outpatient (CLI) | payer MEDICARE, MEDICAID, SELFPAY ==
[2020-09-18 09:44] LABS: Basophils Percent Auto 0.2 % (0.2-1.2); Eosinophils Absolute Auto 0.1 K/mm3 (0-0.3); Eosinophils Percent Auto 0.7 % (0-4.4); Hematocrit 42.7 % (37.0-47.0); Hemoglobin 13.3 g/dL (12.0-15.0); Immature Granulocyte Absolute 0.05 K/mm3 (0.00-0.031); Immature Granulocyte Percent A 0.6 % (0-0.5); Immature Reticulocyte Fraction 23.5 % (3.0-15.9); Lymphocytes Absolute Auto 1.41 K/mm3 (0.9-3.2); Lymphocytes Percent Auto 16.5 % (18.3-44.2); Mean Corpuscular HGB Conc 31.1 g/dl (32-36); Mean Corpuscular Hemoglobin 26.4 pg (26-34); Mean Corpuscular Volume 84.7 fl (80-100); Mean Platelet Volume 10.6 fl (7.4-10.4); Monocytes Absolute Auto 0.5 K/mm3 (0.1-0.6); Monocytes Percent Auto 6.2 % (2.6-8.5); Neutrophils Absolute Auto 6.5 K/mm3 (1.3-6.7); Neutrophils Percent Auto 75.8 % (45.5-73.1); Platelet Count Result 201 k/mm3 (150-375); Red Blood Count 5.04 M/mm3 (4.2-5.4); Red Cell Distribution Width 19.9 % (11.5-14.5); Reticulocyte Hemoglobin Conten 33.2 pg (28.2-35.7); Reticulocyte Percent 1.81 % (0.7-4.3); Reticulocytes Absolute 0.09 B/L (32.2-175.7); White Blood Count 8.5 K/mm3 (4.5-10.0)
[2020-09-18 09:57] LABS: Alanine Aminotransferase 80 U/L (4-35); Albumin Level 4.1 g/dL (3.5-5.1); Alkaline Phosphatase 192 U/L (38-126); Anion Gap 12 mmol/L (8-16); Aspartate Amino Transferase 96 U/L (14-36); Bilirubin,Total 0.7 mg/dL (0.2-1.3); Blood Urea Nitrogen 6 mg/dL (7-17); Calcium 9.8 mg/dL (8.4-10.2); Carbon Dioxide 24 mmol/L (22-30); Chloride 99 mmol/L (98-107); Estimated Glomerular Filt Rate > 60; Glucose 207 mg/dL (65-110); Lactate Dehydrogenase 357 U/L (313-618); Potassium 4.5 mmol/L (3.4-5.0); Sodium 135 mmol/L (137-145)
[2020-09-18 10:05] LABS: Transferrin 410 mg/dL (206-381)
[2020-09-18 10:46] LABS: Iron 51 ug/dL (37-170)
[2020-09-18 10:57] LABS: Percent Iron Saturation 10 % (20-50)
[2020-09-18 11:06] LABS: Folic Acid > 20.0 ng/mL (2.76->20)
== END 2020-09-18 09:05 | disposition home or self-care (01) ==
LOC: ANHLAB 09:07
PROVIDERS: PCP Family Medicine; Visit Provider Internal Medicine Hematology & Oncology
DX: D50.9 Iron deficiency anemia, unspecified (principal)
CPT/HCPCS: 36415; 80053; 82607; 82728; 82746; 83540; 83550; 83615; 84466; 85025; 85046

== ENCOUNTER 2020-10-18 18:20 | Emergency (ER) | payer MEDICARE, MEDICAID, SELFPAY ==
[2020-10-18] VITALS (7 sets, daily range): BP systolic 117–123; BP diastolic 59–72; PULSE 97–105; RESP 18–20; TEMP 36.5; O2SAT 92–99
--- NOTE | ~2020-10-18 | US_ITS ---
US pelvic complete DATE: 10/18/2020 19:54 INDICATION: Pelvic pain TECHNIQUE: Real-time imaging via transabdominal approach COMPARISON: 06/11/2020 CT abdomen pelvis FINDINGS: The uterus is surgically absent. The ovaries appear normal, right ovary measuring 2.2 x 1. 8 x 2 cm, left ovary 2.8 x 1.2 x 2 cm. There is vascular flow to both ovaries. No abnormal pelvic mas s lesion is evident. No abnormal pelvic fluid collection is detected. IMPRESSION: Status post hysterectomy, normal ovaries; no pelvic mass or abnormal pelvic fluid collect ion Reviewed, dictated and finalized at [facility]. Reviewed, dictated and finalized at [facility]. IMPRESSION: Status post hysterectomy, normal ovaries; no pelvic mass or abnorma l pelvic fluid collection
--- NOTE | 2020-10-18 19:46 | ED.GENADULT ---
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 Patient states that she saw her CALL [facility] RECRUITER [facility] this past week and pelvic exam was normal however she was told that there is something wrong with her ovaries due to having pain 2 to 3 weeks and an ultrasound was scheduled for . Patient states that she has some mild pain with improvement, but today it became excruciating to the right ovary. She states she called the [facility] after-hours line and spoke with Dr. Murrell and he told her he needed she needed to come to the ER for ultrasound. Patient states that she took 2 ibuprofen this morning without remittance of her symptoms. Patient denies fever, chills, nausea, vomiting, diarrhea, vaginal bleeding, vaginal discharge. Patient denies any concern for STDs. Related Data Home Medications Medication Instructions Recorded Confirmed desipramine 50 mg PO DAILY 09/11/20 10/01/20 empagliflozin [Jardiance] 25 mg PO DAILY 09/11/20 10/01/20 escitalopram oxalate 20 mg PO DAILY 09/11/20 10/01/20 metformin 1,000 mg PO BID 09/11/20 10/01/20 pravastatin 40 mg PO DAILY 09/11/20 10/01/20 quetiapine 800 mg PO HS 09/11/20 10/01/20 ropinirole 2 mg PO BID 09/11/20 10/01/20 sitagliptin [Januvia] 100 mg PO DAILY 09/11/20 10/01/20 trazodone 100 mg PO HS 09/11/20 10/01/20 omeprazole 20 mg PO BID 09/25/20 10/01/20 Allergies Allergy/AdvReac Type Severity Reaction Status Date / Time morphine Allergy Intermediate Hives Verified 10/18/20 19:01 Sulfa (Sulfonamide Allergy Unknown Hives Verified 10/18/20 19:01 Antibiotics) vancomycin Allergy Unknown Hives Verified 10/18/20 19:01 Review of Systems Review of Systems: CONSTITUTIONAL: Denies fever, chills, or sweats. EYES: Denies visual changes, redness, or discharge. ENT: Denies rhinorrhea, congestion, sore throat, or otalgia. CARDIOVASCULAR: Denies chest pain, palpitations, or edema. RESPIRATORY: Denies cough or dyspnea. GASTROINTESTINAL: Denies abdominal pain, nausea, vomiting, or diarrhea. GENITOURINARY: Reports ovarian pain denies dysuria or hematuria. SKIN: Denies rash or itching. MUSCULOSKELETAL: Denies back pain, joint pain, or myalgia. NEUROLOGIC: Denies headache, numbness, dizziness, or weakness. PSYCHIATRIC: Denies anxiety or depression. [facility] Past Medical History Medical History Anemia Prior to hysterectomy Anxiety Asthma Depression Ganglion cyst lt foot GERD (gastroesophageal reflux disease) Hyperlipidemia Polycystic ovaries Restless leg syndrome Spinal stenosis Type 2 diabetes mellitus Surgical History Surgical History H/O arthroscopy lt knee H/O laparoscopy Multiple in her teenage years due to dysfunctional uterine bleeding. H/O tubal ligation H/O: hysterectomy Due to dysfunctional uterine bleeding History of incision and drainage Left breast Hx of appendectomy Hx of cholecystectomy Hx of tonsillectomy Family History Family History Mother Hypertension Depression Anxiety Father Unknown family medical history Social History Social History Social History: The patient is applying for disability and awaiting for final decision. She lives with her boyfriend and takes care of his mother. She also lives with his boyfriend's sister and child. She does not have a durable power trademark attorney but desires to be a full code. Patient is an only child. She does not know her father's history. Her so
[2020-10-18] MEDS: KETOROLAC (*BKC) 60 MG/2 ML VIAL IM (20:36)
--- NOTE | 2020-10-18 21:24 | PC.NURSE ---
pt left without discharge instructions or teaching, room empty
== END 2020-10-18 21:35 | disposition home or self-care (01) ==
PROVIDERS: Emergency Provider Emergency Medicine; PCP Family Medicine
DX: R10.2 Pelvic and perineal pain (principal); E28.2 Polycystic ovarian syndrome; E11.9 Type 2 diabetes mellitus without complications; J45.909 Unspecified asthma, uncomplicated; K21.9 Gastro-esophageal reflux disease without esophagitis; G25.81 Restless legs syndrome; F32.9 Major depressive disorder, single episode, unspecified; Z86.2 Personal history of diseases of the blood and blood-forming organs and certain disorders involving the immune mechanism; Z79.84 Long term (current) use of oral hypoglycemic drugs; F17.210 Nicotine dependence, cigarettes, uncomplicated
CPT/HCPCS: 76856; 96372; 99284; J1885

== ENCOUNTER 2020-11-06 10:32 | Outpatient (CLI) | payer MEDICARE, MEDICAID, SELFPAY ==
[2020-11-06 11:12] LABS: Basophils Percent Auto 0.5 % (0.2-1.2); Eosinophils Absolute Auto 0.1 K/mm3 (0-0.3); Eosinophils Percent Auto 0.7 % (0-4.4); Hematocrit 48.8 % (37.0-47.0); Immature Granulocyte Absolute 0.04 K/mm3 (0.00-0.031); Immature Granulocyte Percent A 0.5 % (0-0.5); Lymphocytes Absolute Auto 1.33 K/mm3 (0.9-3.2); Lymphocytes Percent Auto 15.3 % (18.3-44.2); Mean Corpuscular HGB Conc 32.8 g/dl (32-36); Mean Corpuscular Hemoglobin 30.7 pg (26-34); Mean Corpuscular Volume 93.5 fl (80-100); Mean Platelet Volume 10.7 fl (7.4-10.4); Monocytes Absolute Auto 0.6 K/mm3 (0.1-0.6); Monocytes Percent Auto 6.3 % (2.6-8.5); Neutrophils Absolute Auto 6.7 K/mm3 (1.3-6.7); Neutrophils Percent Auto 76.7 % (45.5-73.1); Platelet Count Result 180 k/mm3 (150-375); Red Blood Count 5.22 M/mm3 (4.2-5.4); Red Cell Distribution Width 20.8 % (11.5-14.5); White Blood Count 8.7 K/mm3 (4.5-10.0)
[2020-11-06 11:30] LABS: Alanine Aminotransferase 78 U/L (4-35); Albumin Level 4.6 g/dL (3.5-5.1); Alkaline Phosphatase 199 U/L (38-126); Anion Gap 12 mmol/L (8-16); Aspartate Amino Transferase 88 U/L (14-36); Bilirubin,Total 0.5 mg/dL (0.2-1.3); Blood Urea Nitrogen 10 mg/dL (7-17); Calcium 9.8 mg/dL (8.4-10.2); Carbon Dioxide 26 mmol/L (22-30); Chloride 100 mmol/L (98-107); Cholesterol 206 mg/dL (0-200); Estimated Glomerular Filt Rate > 60; Glucose 299 mg/dL (65-110); HDL Direct 50 mg/dL; Potassium 4.5 mmol/L (3.4-5.0); Sodium 138 mmol/L (137-145); Triglycerides 217 mg/dL (<150)
[2020-11-06 11:41] LABS: LDL Cholesterol Direct 111 mg/dL
[2020-11-06 11:44] LABS: Creatinine Urine 20.1 mg/dL
[2020-11-06 11:47] LABS: MALB Creatinine Ratio 133.3 mg/g (0-30); Microalbumin Urine Random 26.8 mg/L (0-16.7)
[2020-11-06 12:01] LABS: Free T4 Free Thyroxine 0.94 ng/mL (0.78-2.19); Thyroid Stimulating Hormone 0.892 uIU/mL (0.465-4.680); Total Triiodothyronine (T3) 1.01 NG/ML (0.97-1.69); Vitamin D 25 Hydroxy 49.9 ng/mL
== END 2020-11-06 10:33 | disposition home or self-care (01) ==
LOC: ANHLAB 10:36
PROVIDERS: PCP Family Medicine
DX: E11.42 Type 2 diabetes mellitus with diabetic polyneuropathy (principal); E55.9 Vitamin D deficiency, unspecified; R80.9 Proteinuria, unspecified; Z13.29 Encounter for screening for other suspected endocrine disorder; Z13.220 Encounter for screening for lipoid disorders; Z13.6 Encounter for screening for cardiovascular disorders; Z13.0 Encounter for screening for diseases of the blood and blood-forming organs and certain disorders involving the immune mechanism
CPT/HCPCS: 36415; 80053; 80061; 82043; 82306; 84439; 84443; 84480; 85025

== ENCOUNTER 2020-12-01 19:06 | Emergency (ER) | payer MEDICARE, MEDICAID, SELFPAY ==
--- NOTE | 2020-12-01 20:53 | PC.NURSE ---
called at 2008, no answer. called at 2041, no answer.
== END 2020-12-02 04:13 | disposition left against medical advice (07) ==
LOC: ANHED 21:07
DX: Z53.21 Procedure and treatment not carried out due to patient leaving prior to being seen by health care provider (principal)
CPT/HCPCS: 99199

== ENCOUNTER 2020-12-19 08:25 | Outpatient (CLI) | payer MEDICARE, MEDICAID, SELFPAY ==
--- NOTE | ~2020-12-19 | MM_ITS ---
EXAMINATION: MM screening ting BI w elena HISTORY: Screening mammogram TECHNIQUE: Craniocaudal and mediolateral oblique 3-D tomosynthesis images were obtained and synthetic 2-D images were generated. CAD analysis was submitted and interpreted. COMPARISON: limited left breast ultrasound 06/13/2019 limited left breast ultrasound and left breast aspiration procedure 05/03/2019 limited left breast ultrasound 04/30/2019 bilateral Limited breast ultrasound 02/02/2017 bilateral screening mammogram BREAST PARENCHYMAL COMPOSITION: The breasts are almost entirely fatty. FINDINGS: There is no evidence of suspicious mass, calcification, or architectural distortion to sugg est malignancy in either breast. There has been no suspicious interval change. IMPRESSION: 1. No mammographic evidence of malignancy. 2. Recommend routine screening mammography in one year. BI-RADS Category 1: Negative Reviewed, dictated and finalized at location [facility].
== END 2020-12-19 08:26 | disposition home or self-care (01) ==
LOC: ANHIMG 08:26
PROVIDERS: PCP Physician Assistant; Visit Provider Physician Assistant
DX: Z12.31 Encounter for screening mammogram for malignant neoplasm of breast (principal)
CPT/HCPCS: 77063; 77067

== ENCOUNTER 2021-08-05 10:00 | Outpatient (CLI) | payer MEDICARE, MEDICAID, SELFPAY ==
--- NOTE | ~2021-08-05 | XR_ITS ---
EXAMINATION: XR hip RT min 3V w AP pelvis DATE: 08/05/2021 10:27 INDICATION: Right hip pain. TECHNIQUE: An anteroposterior view of the pelvis and 3 views of right hip were obtained. COMPARISON: Pelvis and hip radiographs 05/28/2017 FINDINGS: Bone alignment is normal. No fracture. There is mild osteoarthritis of the hips. There is m oderate lumbar spondylosis. IMPRESSION: 1. Mild osteoarthritis of the hips. Reviewed, dictated and finalized at [facility].
--- NOTE | ~2021-08-05 | CT_ITS ---
EXAMINATION: CT lung screening DATE: 08/05/2021 10:21 INDICATION: HX OF NICOTINE DEPENDENCE TECHNIQUE: Computed tomography (CT) of the chest was performed without intravenous contrast. Addition al 3D reconstructions utilizing coronal maximum intensity projection (MIP) were performed. Automated exposure control and iterative reconstruction technique were employed. The dose-length product was 33 6.36 mGy-cm. COMPARISON: None FINDINGS: Mild emphysema. No suspicious pulmonary nodules, pneumonia, pulmonary edema or pleural effusion. Hear t size is normal. Small amount of scattered atherosclerotic coronary artery calcific lesion. Mitral a nnular calcification. No pericardial effusion. Thoracic aorta is normal in caliber. No pathologically enlarged thoracic lymphadenopathy. Nodular cirrhotic liver. Mild thoracic spondylosis. IMPRESSION: 1. . Lung-RADS category 1: Negative. Continue annual screening with noncontrast low-dose chest CT in 12 months. 2. Cirrhosis. Reviewed, dictated and finalized at location [facility].
--- NOTE | ~2021-08-05 | US_ITS ---
EXAMINATION: US soft tissue lower back DATE: 08/05/2021 10:46 INDICATION: Palpable lump at the right lower back. TECHNIQUE: Multiple grayscale and Doppler ultrasound images of the region of concern at the right low er back were obtained. COMPARISON: None FINDINGS: There is a 6 x 5 x 7 mm shadowing mass in the superficial subcutaneous tissues 4 mm from the skin sergio face at the region of concern. No evident internal vascular flow or surrounding hyperemia on color Do ppler. IMPRESSION: 1. 6 x 5 x 7 mm shadowing nodule in the superficial subcutaneous tissues at the region of concern whi ch could represent either a rim calcified heterotopic ossicle or a foreign body. Reviewed, dictated and finalized at location [facility]. IMPRESSION: 1. 6 x 5 x 7 mm shadowing nodule in the superficial subcutaneous tissues at the region of concern which could represent either a rim calcified heterotopic oss icle or a foreign body.
== END 2021-08-05 10:01 | disposition home or self-care (01) ==
PROVIDERS: PCP Physician Assistant; Visit Provider Internal Medicine Hematology & Oncology
DX: Z12.2 Encounter for screening for malignant neoplasm of respiratory organs (principal); Z87.891 Personal history of nicotine dependence; M16.0 Bilateral primary osteoarthritis of hip; K74.69 Other cirrhosis of liver
CPT/HCPCS: 71271; 73502; 76705

== ENCOUNTER 2021-09-25 11:52 | Outpatient (CLI) | payer MEDICARE, MEDICAID, SELFPAY ==
--- NOTE | ~2021-09-25 | XR_ITS ---
XR knee LT 2V 09/25/2021 12:08 Indication: Chronic left knee pain Procedure: 2 views left knee Comparison: 03/24/2019 Findings: There is unchanged mild tricompartment osteoarthritis of the left knee. No fracture or trau matic malalignment. No significant joint effusion. No foreign bodies. Impression: 1: Stable mild tricompartment osteoarthritis of the left knee. Reviewed, dictated and finalized at location [facility]. Impression: 1: Stable mild tricompartment osteoarthritis of the left knee.
== END 2021-09-25 11:53 | disposition home or self-care (01) ==
LOC: ANHIMG 11:57
PROVIDERS: PCP Physician Assistant; Visit Provider Physician Assistant
DX: M17.12 Unilateral primary osteoarthritis, left knee (principal)
CPT/HCPCS: 73560

== ENCOUNTER 2022-03-10 15:34 | Outpatient (CLI) | payer MEDICARE, MEDICAID, SELFPAY ==
--- NOTE | ~2022-03-10 | MM_ITS ---
EXAMINATION: MM screening [facility] BI w elena HISTORY: Screening mammogram TECHNIQUE: Craniocaudal and mediolateral oblique 3-D tomosynthesis images were obtained and synthetic 2-D images were generated. CAD analysis was submitted and interpreted. COMPARISON: 12/19/2020, 02/04/2017, 01/06/2016, 03/07/2015 BREAST PARENCHYMAL COMPOSITION: The breasts are almost entirely fatty. FINDINGS: No suspicious mass, calcification, or architectural distortion are identified in either cara ast to suggest malignancy. There has been no suspicious interval change. IMPRESSION: 1. No mammographic evidence of malignancy. 2. Recommend routine screening mammography in one year. BI-RADS Category 1: Negative Reviewed, dictated and finalized at location [facility]. 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
== END 2022-03-10 15:35 | disposition home or self-care (01) ==
LOC: ANHIMG 15:35
PROVIDERS: PCP Nurse Practitioner Family; Visit Provider Nurse Practitioner Family
DX: Z12.31 Encounter for screening mammogram for malignant neoplasm of breast (principal)
CPT/HCPCS: 77063; 77067

== ENCOUNTER 2022-08-31 08:27 | Outpatient (CLI) | payer MEDICARE, MEDICAID, SELFPAY ==
--- NOTE | ~2022-08-31 | CT_ITS ---
CT Scan of the Chest without Contrast: Clinical Indication: Lung cancer screening, personal history of nicotine dependence Technique: Contiguous sections were acquired throughout the chest without intravenous contrast. Dose reduction technique was used on this scan by utilizing automated exposure control and iterative recon struction technique. The dose-length product (DLP) was 437.39 mGy-cm. COMPARISON: 08/05/2021 Findings: There is no evidence of any significant mediastinal, hilar or axillary lymphadenopathy. The mediastin al soft tissues appear normal. There is no evidence of pleural or pericardial effusion. The lungs are clear. No pulmonary nodules or infiltrates are noted. Images through the upper abdomen reveal micronodular contour of the liver, as well as suspected parti ally imaged splenomegaly. Impression: Lung RADS 1: Negative. 12 month follow-up screening CT advised. Cirrhotic liver and probable splenomegaly. Reviewed, dictated and finalized at [facility]. Impression: Lung RADS 1: Negative. 12 month follow-up screening CT advised. Cirrhotic liver and probable splenomegaly.
== END 2022-08-31 08:28 | disposition home or self-care (01) ==
PROVIDERS: PCP Nurse Practitioner Family; Visit Provider Internal Medicine Hematology & Oncology
DX: Z12.2 Encounter for screening for malignant neoplasm of respiratory organs (principal); Z87.891 Personal history of nicotine dependence
CPT/HCPCS: 36415; 71271; 80053; 82728; 83540; 83550; 85025

== ENCOUNTER 2022-12-09 19:44 | Emergency (ER) | payer MEDICARE, MEDICAID, SELFPAY ==
[2022-12-09 19:45] VITALS: BP 145/79; PULSE 110; RESP 16; TEMP 35.6; O2SAT 100
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
[2022-12-09] MEDS: HYDROmorphone HCL INJ (*CRX) 1 MG/ML SYR IM (20:14)
[2022-12-09 20:38] VITALS: BP 102/70; PULSE 102; RESP 16; O2SAT 96
[2022-12-09] MEDS: NEOMYCIN/POLYMYXIN/BACITRACIN OINTMENT 15 GM TUBE 1 APPLIC TOPICAL (20:38)
[2022-12-09 21:53] VITALS: BP 114/64; PULSE 96; RESP 15; O2SAT 98
== END 2022-12-09 21:54 | disposition home or self-care (01) ==
LOC: ANHED 20:56
PROVIDERS: Emergency Provider Emergency Medicine; PCP Nurse Practitioner Family
DX: T21.22XA Burn of second degree of abdominal wall, initial encounter (principal); E11.9 Type 2 diabetes mellitus without complications; E78.5 Hyperlipidemia, unspecified; E28.2 Polycystic ovarian syndrome; K21.9 Gastro-esophageal reflux disease without esophagitis; G25.81 Restless legs syndrome; F41.9 Anxiety disorder, unspecified; F32.A Depression, unspecified; F17.210 Nicotine dependence, cigarettes, uncomplicated; Z90.49 Acquired absence of other specified parts of digestive tract; Z90.710 Acquired absence of both cervix and uterus; Z79.84 Long term (current) use of oral hypoglycemic drugs; X10.1XXA Contact with hot food, initial encounter
CPT/HCPCS: 96372; 99283; A9270; J1170